=== PATIENT | female | born 1945 | race Caucasian/White ===

== ENCOUNTER → 2017-10-23 | Outpatient (CLI) | payer MEDICARE, BC | END | disposition home or self-care (01) | LOC: KCIC US 15:23 | DX: M79.89 Other specified soft tissue disorders (principal); M79.604 Pain in right leg | CPT/HCPCS: 93971 ==

== ENCOUNTER 2018-02-03 09:02 | Inpatient (IN) | payer MEDICARE, BC ==
[2018-02-03 09:52] LABS: ADD MAN DIFF? NO
[2018-02-03 10:05] LABS: ANION GAP 9 (6-14); BLOOD UREA NITROGEN 24 mg/dL (7-20); BUN/CREATININE RATIO 24 (6-20); CALCIUM 8.4 mg/dL (8.5-10.1); CARBON DIOXIDE 27 mmol/L (21-32); CHLORIDE 104 mmol/L (98-107); GFR 54.2; GLUCOSE 153 mg/dL (70-99); POTASSIUM 4.2 mmol/L (3.5-5.1); SODIUM 140 mmol/L (136-145)
[2018-02-03 10:06] LABS: BASO # 0.1 x10^3/uL (0.0-0.2); BASO % 1 % (0-3); EOS # 0.2 x10^3/uL (0.0-0.7); EOS % 2 % (0-3); HEMATOCRIT 33.5 % (36.0-47.0); HEMOGLOBIN 11.3 g/dL (12.0-15.5); LYMPH # 2.6 x10^3/uL (1.0-4.8); LYMPH % 32 % (24-48); MEAN CORPUSCULAR HEMOGLOBIN 28 pg (25-35); MEAN CORPUSCULAR HGB CONC 34 g/dL (31-37); MEAN CORPUSCULAR VOLUME 84 fL (79-100); MONO # 0.5 x10^3/uL (0.0-1.1); MONO % 6 % (0-9); NEUT # 4.9 x10^3uL (1.8-7.7); NEUT % 59 % (31-73); PLATELET COUNT 179 x10^3/uL (140-400); RED BLOOD COUNT 3.97 x10^6/uL (3.50-5.40); RED CELL DISTRIBUTION WIDTH 16.3 % (11.5-14.5); WHITE BLOOD COUNT 8.3 x10^3/uL (4.0-11.0)
[2018-02-03 10:12] LABS: ALBUMIN 3.3 g/dL (3.4-5.0); ALBUMIN/GLOBULIN RATIO 1.1 (1.0-1.7); ALK PHOS 67 U/L (46-116); ALT (SGPT) 22 U/L (14-59); AST (SGOT) 20 U/L (15-37); TOTAL BILIRUBIN 0.3 mg/dL (0.2-1.0); TOTAL PROTEIN 6.4 g/dL (6.4-8.2)
[2018-02-03 10:18] LABS: TROPONINI < 0.017 ng/mL (0.000-0.055)
[2018-02-03 10:27] LABS: NT-PRO BNP 474 pg/mL (0-124)
[2018-02-03 10:27] LABS: CKMB MASS 0.7 ng/mL (0.0-3.6); CREATINE KINASE 24 U/L (26-192)
[2018-02-03 10:39] LABS: PARTIAL THROMBOPLASTIN TIME 30 SEC (24-38); PROTHROMBIN TIME PATIENT 12.9 SEC (11.7-14.0)
[2018-02-03 10:51] LABS: BILIRUBIN,URINE NEGATIVE (NEG); CLARITY,URINE CLEAR; COLOR,URINE YELLOW; GLUCOSE,URINE NEGATIVE (NEG); NITRITE,URINE NEGATIVE (NEG); PROTEIN,URINE NEGATIVE (NEG-TRACE); UROBILINOGEN,URINE 0.2 mg/dL (0.2 mg/dL)
[2018-02-03] MEDS: IV NORMAL SALINE 1000ML BAG 1,000 ML IV (10:56)
[2018-02-03 11:05] LABS: SQUAMOUS EPITHELIAL CELL,UR MOD /LPF
[2018-02-03 11:06] LABS: BACTERIA,URINE FEW /HPF (0-FEW); HYALINE CASTS, URINE FEW /HPF; RBC,URINE 0 /HPF (0-2)
[2018-02-03] MEDS ORDERED: ONDANSETRON PF 4 MG/2 ML VIAL. IV (11:30)
[2018-02-03] MEDS ORDERED: ACETAMINOPHEN/CODEINE 300/30MG TABLET. PO (12:00)
[2018-02-03] MEDS ORDERED: DEXTROSE 50% 25 GM / 50ML DISP.SYRIN. IV (12:00)
[2018-02-03] MEDS: INSULIN LISPRO 300 UNITS/3 ML INSULN.PEN. SQ ×3 (12:30→17:40)
[2018-02-03] MEDS ORDERED: FUROSEMIDE 40 MG TABLET. PO (13:00)
[2018-02-03] MEDS ORDERED: hydrALAZINE 20 MG/ML VIAL. IVP (13:15)
[2018-02-03] MEDS: LISINOPRIL 20 MG TABLET PO (14:23)
[2018-02-03] MEDS: POTASSIUM CHLORIDE 10 MEQ TABLET.ER. PO (14:23)
[2018-02-03] MEDS: FUROSEMIDE 40 MG/4 ML VIAL. IVP (14:24)
[2018-02-03] MEDS ORDERED: PERFLUTREN PROTEIN-A MICROSPHR 0.22 MG/ML 3 ML VIAL. IV (14:59)
[2018-02-03 15:03] LABS: TROPONINI < 0.017 ng/mL (0.000-0.055)
[2018-02-03 15:25] LABS: THYROID STIM HORMONE (TSH) 7.714 uIU/mL (0.358-3.74)
[2018-02-03] MEDS: amLODIPine BESYLATE 10 MG TABLET PO (16:13)
[2018-02-03 17:19] LABS: POC GLUCOSE 138 mg/dL (70-99)
[2018-02-03] MEDS: glyBURIDE 5 MG TABLET PO (17:33)
[2018-02-03 18:15] LABS: TROPONINI < 0.017 ng/mL (0.000-0.055)
[2018-02-03] MEDS: SIMVASTATIN 20 MG TABLET PO (20:26)
[2018-02-03] MEDS: ACETAMINOPHEN 500 MG TABLET PO (20:26)
[2018-02-03 20:35] LABS: POC GLUCOSE 115 mg/dL (70-99)
[2018-02-03] MEDS: INSULIN GLARGINE 300 UNITS/3 ML INSULN.PEN. SQ (20:41)
[2018-02-03] MEDS: hydrALAZINE 20 MG/ML VIAL. IVP (21:05)
[2018-02-04 06:21] LABS: ANION GAP 8 (6-14); BLOOD UREA NITROGEN 22 mg/dL (7-20); CALCIUM 8.9 mg/dL (8.5-10.1); CARBON DIOXIDE 27 mmol/L (21-32); CHLORIDE 107 mmol/L (98-107); CREATININE 1.2 mg/dL (0.6-1.0); GFR 43.9; GLUCOSE 185 mg/dL (70-99); SODIUM 142 mmol/L (136-145)
[2018-02-04] MEDS: LISINOPRIL 20 MG TABLET PO (08:32)
[2018-02-04] MEDS: glyBURIDE 5 MG TABLET PO ×2 (08:32→17:11)
[2018-02-04] MEDS: POTASSIUM CHLORIDE 10 MEQ TABLET.ER. PO (08:32)
[2018-02-04] MEDS: amLODIPine BESYLATE 10 MG TABLET PO (08:33)
[2018-02-04] MEDS: INSULIN GLARGINE 300 UNITS/3 ML INSULN.PEN. SQ (08:33)
[2018-02-04] MEDS: INSULIN LISPRO 300 UNITS/3 ML INSULN.PEN. SQ ×6 (08:41→17:16)
[2018-02-04] MEDS ORDERED: FUROSEMIDE 40 MG/4 ML VIAL. IVP (09:00)
[2018-02-04] MEDS: hydrALAZINE 20 MG/ML VIAL. IVP (11:02)
[2018-02-04] MEDS ORDERED: hydrALAZINE 20 MG/ML VIAL. IVP (11:15)
[2018-02-04 11:42] LABS: POC GLUCOSE 197 mg/dL (70-99)
[2018-02-04 11:42] LABS: POC GLUCOSE 206 mg/dL (70-99)
[2018-02-04] MEDS: ISOSORBIDE MONONITRATE ER 30 MG TAB.ER.24H PO (11:45)
[2018-02-04 17:13] LABS: POC GLUCOSE 162 mg/dL (70-99)
[2018-02-05 03:18] LABS: MRSA BY PCR Negative (Negative)
[2018-02-05 14:44] LABS: HEMOGLOBIN A1C 7.1 % (4.8-5.6)
== END 2018-02-04 19:10 | disposition home or self-care (01) | DRG 312 ==
LOC: ER 09:02 → 1 WEST ICU 11:38 → 2 NORTH 19:05
DX: I95.2 Hypotension due to drugs (principal); E03.9 Hypothyroidism, unspecified; E11.9 Type 2 diabetes mellitus without complications; E66.9 Obesity, unspecified; E78.5 Hyperlipidemia, unspecified; I10 Essential (primary) hypertension; I44.0 Atrioventricular block, first degree; M19.90 Unspecified osteoarthritis, unspecified site; I89.0 Lymphedema, not elsewhere classified; Z68.34 Body mass index [BMI] 34.0-34.9, adult; Z79.4 Long term (current) use of insulin; Z82.49 Family history of ischemic heart disease and other diseases of the circulatory system; Z86.718 Personal history of other venous thrombosis and embolism; Z90.710 Acquired absence of both cervix and uterus; Z88.2 Allergy status to sulfonamides; Z68.38 Body mass index [BMI] 38.0-38.9, adult; T46.1X5A Adverse effect of calcium-channel blockers, initial encounter; T46.5X5A Adverse effect of other antihypertensive drugs, initial encounter
CPT/HCPCS: 36415; 70450; 71046; 76770; 80048; 80053; 81001; 82553; 82962; 83036; 83735; 83880; 84443; 84484; 85025; 85610; 85730; 87641; 93005; 93970; 96360; 97161-GP; 97166-GO; 97530-GO; 97535-GO; 99285; 99285-25; J0360; J1815; J1940; J7030

== ENCOUNTER → 2018-03-10 | Outpatient (CLI) | payer MEDICARE, BC ==
[2018-02-04 15:00] VITALS: BP 154/72
[~2018-03-10] MED LIST: BENA40TA3 PO; FURO40TA4 PO; GLYB5TAB3 PO; INSU100V13 SQ; METF10003 PO; POTA10TA31 PO; SIMV20TA3 PO
[2018-03-10 11:11] LABS: CALCIUM 9.7 mg/dL (8.5-10.1); CREATININE 1.1 mg/dL (0.6-1.0); GFR 48.6
== END | disposition home or self-care (01) ==
LOC: LAB 10:20
PROVIDERS: ATTEND Internal Medicine Cardiovascular Disease
DX: I10 Essential (primary) hypertension (principal); E11.9 Type 2 diabetes mellitus without complications; E78.5 Hyperlipidemia, unspecified; E03.9 Hypothyroidism, unspecified; Z79.4 Long term (current) use of insulin; Z86.718 Personal history of other venous thrombosis and embolism; Z90.710 Acquired absence of both cervix and uterus; Z68.34 Body mass index [BMI] 34.0-34.9, adult; Z82.49 Family history of ischemic heart disease and other diseases of the circulatory system
CPT/HCPCS: 36415; 80048

== ENCOUNTER 2018-10-21 10:05 | Inpatient (IN) | payer MEDICARE, BC ==
[~2018-10-21] VITALS: Ht 170.2 cm; Wt 114.3 kg
[~2018-10-21 10:05] MED LIST changes: -METF10003 PO; +METF10007 PO
[2018-10-21 11:00] VITALS: BP 143/62
[2018-10-21] MEDS ORDERED: ASPI81TA50 PO (12:32)
[2018-10-21] MEDS ORDERED: INSU100I11 SQ (12:32)
[2018-10-21] MEDS ORDERED: OMEG1CAP6 PO (12:32)
[2018-10-21] MEDS ORDERED: AMLO10TA4 PO (12:32)
[2018-10-21] MEDS ORDERED: ATOR10TA60 PO (12:32)
[2018-10-21] MEDS ORDERED: OMEG1CAP2 PO (12:32)
[2018-10-21] MEDS ORDERED: HYDR-2869 PO (12:32)
[2018-10-21] MEDS ORDERED: LEVO100T PO (12:32)
[2018-10-21] MEDS ORDERED: APIX5TAB PO (12:32)
[2018-10-21] MEDS ORDERED: FUROSEMIDE 40 MG/4 ML VIAL. IVP ONE ×2 (13:30→20:00)
--- NOTE | 2018-10-21 13:42 | PDOC ---
JOSÉ LUIS COLUNGA STEEL CRANE OPERATOR 10/21/18 1341: CARDIO Progress Notes Date and Time Date of Service 10/21/18 Time of Evaluation 1305 Subjective Subjective: No Chest Pain, No shortness of breath, Other (c/o LE edema, tightness) Vitals Vitals Vital Signs Date Time Temp Pulse Resp B/P (MAP) Pulse Ox O2 Delivery O2 Flow Rate FiO2 10/21/18 11:00 97.7 76 19 143/62 (89) 97 Room Air 97.7 Weight Weight [ ] Laboratory Labs Laboratory Tests Test 10/21/18 11:57 Glucose (Fingerstick) 83 mg/dL (70-99) Physical Exam HEENT: Neck Supple W Full Motion Chest: Symmetric LUNGS: Clear to Auscultation, Other (diminished bases) Heart: S1S2, RRR Abdomen: Soft N/T Extremities: Other (3+ pitting bilateral LE edema) Neurology: alert, oriented, follow commands Assessment Assessment HPI: This is a 73 yo female,with a history of chronic lower extremity edema, hypertension, diabetes, and DVT on chronic anticoagulation, who presented to our office today for routine follow up with complaints of significant lower extremity edema. Patient report LE swelling has been progressively worsening over the last couple of weeks. Reports compliance with diuretic therapy. No recent complaints of chest pain, palpitations, dizziness, diaphoresis, or recent illness/fevers. Does reports some mild shortness of breath, especially upon exertion. Also reporting slight orthopnea over the last few days. Has previously decline further workup of persistent LE edema and shortness of breath. Assessment 1. LE edema, probable venous insufficiency 2. Hypertension 3. Hyperlipidemia 4. Diabetes, II 5. H/o DVT on chronic anticoagulation 6. Hypothyroidism Recommendations CXR CBC, CMP, NT Pro BNP Echo to assess LV systolic function Diuresis with monitoring of labs LE elevation, compression stockings as tolerated Further recommendations pending above. RUSTY WALLS MD 10/21/18 1925: CARDIO Progress Notes Plan Plan Pt. seen and examined. Agree with above SOAP TENDER note with following comments: 73 y.o woman with severe bilateral lower ext edema. She has clear lungs, normal EF and low BNP, this would point away from a central process. She does have a history of DVT Will check bilateral venous dopplers and reflux studies. Diuresis as renal function allows. May need a caval venogram to rule out may thurner. Will consider possible RHC and IVC venogram tomorrow. Thanks. JOSÉ LUIS COLUNGA APRN Oct 21, 2018 13:41 RUSTY WALLS MD Oct 21, 2018 19:25
[2018-10-21] MEDS: LISINOPRIL 20 MG TABLET PO SCH (14:00)
[2018-10-21] MEDS: amLODIPine BESYLATE 10 MG TABLET PO SCH (14:00)
[2018-10-21] MEDS: OMEGA-3 FATTY ACIDS/FISH OIL 1,000 MG CAPSULE. PO SCH (14:00)
[2018-10-21] MEDS: ASPIRIN ENTERIC COATED 81 MG TABLET.DR. PO SCH (14:00)
[2018-10-21] MEDS: LEVOTHYROXINE 100 MCG TABLET PO SCH (14:00)
--- NOTE | 2018-10-21 14:02 | CARD ---
MR#: [id number] Date of Study: 10/21/2018 Ordering Physician: RUSTY WALLS, Referring Physician: ALONSO YOUNG Tech: Tiffanie Nichols RAMU APPROVED REPORT EXAM: Two-dimensional and M-mode echocardiogram with Doppler and color Doppler. Other Information Quality : Good INDICATION Congestive Heart Failure 2D DIMENSIONS Left Atrium(2D)4.7 (1.6-4.0cm)IVSd1.5 (0.7-1.1cm) Aortic Root(2D)2.8 (2.0-3.7cm)LVDd4.4 (3.9-5.9cm) LVOT Diameter2.1 (1.8-2.4cm)PWd0.9 (0.7-1.1cm) LVDs2.3 (2.5-4.0cm)FS (%) 30.0 % SV69.0 mlLVEF(%)60.0 (>50%) Aortic Valve AoV Peak Stuart.131.5cm/sAoV VTI29.0cm AO Peak GR.6.9mmHgLVOT Peak Stuart.122.4cm/s AO Mean GR.4mmHgAVA (VMAX)3.27cm2 JESSI (VTI)3.94wd6ZD P 1/2 [id number] Mitral Valve MV E Tqvmpkjx73.4cm/sMV DECEL [id number] MV A Apppqose01.9cm/sE/A Ratio1.2 Pulmonary Vein S1 Msunddoo30.4cm/sD2 Kpytesse19.0cm/s LEFT VENTRICLE The left ventricle is normal size. There is mild to moderate asymmetric septal left ventricular hyper trophy. The left ventricular systolic function is normal. The Ejection Fraction is 55-60%. There is n ormal LV segmental wall motion. Transmitral Doppler flow pattern is Grade I-abnormal relaxation patte rn. RIGHT VENTRICLE The right ventricle is normal size. The right ventricular systolic function is normal. ATRIA The left atrium is mildly dilated. The right atrium size is normal. The interatrial septum is intact with no evidence for an atrial septal defect or patent foramen ovale as noted on 2-D or Doppler imagi ng. AORTIC VALVE The aortic valve is calcified but opens well. Doppler and Color Flow revealed trace to mild aortic re gurgitation. There is no significant aortic valvular stenosis. MITRAL VALVE The mitral valve is calcified but opens well. There is no evidence of mitral valve prolapse. There is no mitral valve stenosis. Doppler and Color-flow revealed mild mitral regurgitation. TRICUSPID VALVE The tricuspid valve is normal in structure and function. Doppler and Color Flow revealed no tricuspid valve regurgitation noted. There is no tricuspid valve stenosis. PULMONIC VALVE The pulmonic valve is not well visualized. Doppler and Color Flow revealed trace pulmonic valvular re gurgitation. There is no pulmonic valvular stenosis. GREAT VESSELS The aortic root is normal in size. The ascending aorta is normal in size. The IVC is normal in size a nd collapses >50% with inspiration. PERICARDIAL EFFUSION There is no evidence of significant pericardial effusion. Critical Notification Critical Value: No <Conclusion> The left ventricular systolic function is normal. The Ejection Fraction is 55-60%. There is normal LV segmental wall motion. Transmitral Doppler flow pattern is Grade I-abnormal relaxation pattern. Trace to mild aortic regurgitation. Mild mitral regurgitation. There is no evidence of significant pericardial effusion. Signed by : Rex Mcarthur, Electronically Approved : 10/21/2018 14:02:04
[2018-10-21] MEDS: APIXABAN 5 MG TABLET. PO SCH ×2 (14:07→20:05)
[2018-10-21 14:42] VITALS: BP 148/60
--- NOTE | 2018-10-21 14:43 | RAD ---
AP and Lateral Views of the Chest 10/21/2018 1:36 PM Indication: Shortness of breath Comparison: Chest radiograph January 04, 2018 Findings: There is no focal consolidation or infiltrate identified. The cardiomediastinal silhouette is within normal limits. There is no evidence of pneumothorax or pleural effusion. No acute osseous abnormalities are identified. Impression: No evidence of acute cardiopulmonary process. Electronically signed by: Isiah Mazariegos MD (10/21/2018 2:40 PM) [id number]
[2018-10-21] MEDS ORDERED: 0.9 % SODIUM CHLORIDE 10 ML DISP.SYRIN. IV PRN (16:45)
--- NOTE | 2018-10-21 16:50 | PDOC1 ---
History and Physical Date of Admission Date of Admission 10/21/2018 Identification/Chief Complaint Chief Complaint my legs are swollen Source Source: Chart review, Patient History of Present Illness History of Present Illness is a 73-year-old female with multiple comorbidities including hypertension diabetes dyslipidemia who was in her usual state of health until she was evaluated today at her finishing inspector office. She was noted to have bilateral edema over her extremities. Patient refers having great deal of discomfort as a consequence of the increase in her edema over the last week more or less. She has been dealing with her symptoms for at least 2 years he refers. Patient denies trauma denies fever she has had chills she denies breaks in her skin. She had been wearing compression stockings but due to the increase in swelling she has not been able to wear them lately. The patient denied chest pain palpitations she has had episodes where she wakes up in the middle the night with paroxysmal to dyspnea she denies dietary transgressions no increase in salt intake no changes to her medications have been done recently. She is being admitted the request of her primary finishing inspector for further investigation and ruling out congestive heart failure as an etiology for her lower semi-edema and proximal internal dyspnea. The patient at the time my evaluation is laying comfortably in Trendelenburg with her legs and elevation. No chest pain no shortness of breath is reported at this time no headache blurred vision, trouble swallowing no palpitations no abdominal pain no nausea no vomiting no diarrhea were voiced by the patient. No urinary symptoms either Past Medical History Cardiovascular: HTN, Hyperlipidemia CENTRAL NERVOUS SYSTEM: Other GI: No pertinent hx Heme/Onc: Other Hepatobiliary: No pertinent hx Psych: No pertinent hx Rheumatologic: No pertinent hx Infectious disease: No pertinent hx Renal/: No pertinent hx Endocrine: Diabetes, Hypothyroidism Past Surgical History Past Surgical History: Cholecystectomy, Hysterectomy Family History Family History: Heart Disease Social History ALCOHOL: none Drugs: None Current Medications Current Medications Current Medications Medications (Trade) Dose Ordered Sig/Matt Start Time Stop Time Status Last Admin Dose Admin Acetaminophen (Tylenol) 650 mg PRN Q6HRS PRN 10/21/18 16:30 Amlodipine Besylate (Norvasc) 10 mg DAILY 10/21/18 14:00 Apixaban (Eliquis) 5 mg BID 10/21/18 14:00 10/21/18 14:07 5 MG Aspirin (Ecotrin) 81 mg DAILY 10/21/18 14:00 Atorvastatin Calcium (Lipitor) 10 mg QHS 10/21/18 21:00 Fish Oil (Fish Oil) 1,000 mg DAILY 10/21/18 14:00 Furosemide (Lasix) 40 mg BID92 10/22/18 09:00 Glyburide (Diabeta) 5 mg BIDWMEALS 10/21/18 17:00 Hydralazine HCl (Apresoline) 50 mg BID 10/21/18 14:00 Insulin Glargine (Lantus) 30 units BID 10/21/18 21:00 Insulin Human Lispro (HumaLOG) 15 units TIDBFRMEAL 10/21/18 16:30 Levothyroxine Sodium (Synthroid) 100 mcg DAILYAC 10/21/18 14:00 Lisinopril (Prinivil) 40 mg DAILY 10/21/18 14:00 Metformin HCl (Glucophage) 1,000 mg BIDWMEALS 10/21/18 17:00 Non-Formulary Medication (Coleman-3 Acid Ethyl Esters (Lovaza)) 2 cap BID 10/21/18 21:00 UNV Allergies Allergies Allergies Coded Allergies Type Severity Reaction Last Updated Verified Sulfa (Sulfonamide Antibiotics) Allergy Intermediate HIVES 02/04/18 No ROS Review of System CONSTITUTIONAL: No fever or chills EYES: No recent changes SKIN: No rash or itching CARDIOVASCULAR: No chest pain, syncope, palpitations, or edema RESPIRATORY: No SOB or cough GASTROINTESTINAL: No nausea, vomiting or abdominal pain NEUROLOGICAL: No headaches or weakness ENDOCRINE: No cold or heat intolerance GENITOURINARY: No urgency or frequency of urination MUSCULOSKELETAL: No back pain or joint pain LYMPHATICS: No enlarged lymph nodes PSYCHIATRIC: No anxiety or depression Physical Exam Physical Exam Gen.: obese in no apparent distress Head: Normal shape atraumatic Eyes: Pupils equal reactive to light and accommodation, normal conjunctivae and lids Ears: Normal shape Nose: Normal shape no trauma Mouth: No exudates of the back of throat no thrush no lesions Neck: Supple no JVD no carotid bruit or lymphadenopathy no thyromegaly Chest: Lungs clear to auscultation with good inspiratory effort no crackles rales or rhonchi Cardiovascular: S1-S2 regular rhythm no murmurs gallops or rubs Abdomen: Bowel sounds present soft nontender no hepatosplenomegaly appreciated sign Extremities: No clubbing no cyanosis no edema peripheral pulses palpated bilaterally Neurological: Alert awake oriented in person time place and situation, cranial nerves II through XII intact, no motor or sensory deficits appreciated Psych: Appropriate mood, cooperative Vitals Vitals Vital Signs Date Time Temp Pulse Resp B/P (MAP) Pulse Ox O2 Delivery O2 Flow Rate FiO2 10/21/18 14:42 97.8 78 18 148/60 (89) 97 Room Air 97.8 Labs Labs Laboratory Tests Test 10/21/18 11:57 10/21/18 13:51 10/21/18 14:03 Glucose (Fingerstick) 83 mg/dL (70-99) 55 mg/dL (70-99) 90 mg/dL (70-99) Laboratory Tests Test 10/21/18 11:57 10/21/18 13:51 10/21/18 14:03 Glucose (Fingerstick) 83 mg/dL (70-99) 55 mg/dL (70-99) 90 mg/dL (70-99) VTE Prophylaxis Ordered VTE Prophylaxis Devices: Yes VTE Pharmacological Prophylaxi: Yes Assessment/Plan Assessment/Plan Bilateral lower extremity edema History of essential hypertension Diabetes mellitus type 2 insulin requiring Dyslipidemia Obesity with a BMI of 39 Suspect obesity hypoventilation syndrome she doesn't use a CPAP machine Plan Resume home medications Evaluation as per cardiology for congestive heart failure Compression stockings We'll start Bumex Further recommendations will be based on the clinical course May benefit from sleep study in the outpatient setting DVT prophylaxis with heparin ROHIT LECHUGA MD Oct 21, 2018 16:50
[2018-10-21] MEDS ORDERED: MORPHINE SULFATE 2 MG/ML VIAL. IV PRN (17:00)
[2018-10-21 17:06] LABS: BASO % 1 % (0-3); EOS # 0.2 x10^3/uL (0.0-0.7); EOS % 2 % (0-3); HEMATOCRIT 28.6 % (36.0-47.0); HEMOGLOBIN 9.1 g/dL (12.0-15.5); LYMPH # 2.3 x10^3/uL (1.0-4.8); LYMPH % 30 % (24-48); MEAN CORPUSCULAR HEMOGLOBIN 27 pg (25-35); MEAN CORPUSCULAR HGB CONC 32 g/dL (31-37); MEAN CORPUSCULAR VOLUME 85 fL (79-100); MONO # 0.5 x10^3/uL (0.0-1.1); MONO % 7 % (0-9); NEUT # 4.7 x10^3uL (1.8-7.7); NEUT % 61 % (31-73); PLATELET COUNT 185 x10^3/uL (140-400); RED BLOOD COUNT 3.37 x10^6/uL (3.50-5.40); RED CELL DISTRIBUTION WIDTH 16.3 % (11.5-14.5); WHITE BLOOD COUNT 7.7 x10^3/uL (4.0-11.0)
[2018-10-21 17:42] LABS: ALBUMIN 3.3 g/dL (3.4-5.0); ALBUMIN/GLOBULIN RATIO 0.9 (1.0-1.7); CALCIUM 8.9 mg/dL (8.5-10.1); CREATININE 1.2 mg/dL (0.6-1.0); GFR 43.8; MAGNESIUM 2.4 mg/dL (1.8-2.4); TOTAL BILIRUBIN 0.4 mg/dL (0.2-1.0); TOTAL PROTEIN 6.8 g/dL (6.4-8.2)
[2018-10-21] MEDS: ACETAMINOPHEN 325 MG TABLET. PO PRN (18:14)
[2018-10-21] MEDS: glyBURIDE 5 MG TABLET PO SCH (18:15)
[2018-10-21] MEDS: metFORMIN 500 MG TABLET PO SCH (18:15)
[2018-10-21] MEDS: INSULIN LISPRO 300 UNITS/3 ML INSULN.PEN. SQ SCH (18:22)
[2018-10-21 19:13] VITALS: BP 144/51
[2018-10-21] MEDS: ATORVASTATIN CALCIUM 10 MG TABLET. PO SCH (20:39)
[2018-10-21] MEDS: INSULIN GLARGINE 300 UNITS/3 ML INSULN.PEN. SQ SCH (20:41)
[2018-10-21] MEDS ORDERED: HEPARIN for SUB-Q USE 5,000 UNIT/ML VIAL. SQ SCH (21:00)
[2018-10-21] MEDS ORDERED: OMEGA ACID ETHYL ESTERS PO SCH (21:00)
[2018-10-21 23:05] VITALS: BP 115/52
[2018-10-22 02:36] VITALS: BP 146/49
[2018-10-22 07:00] VITALS: BP 146/54
[2018-10-22] MEDS: metFORMIN 500 MG TABLET PO SCH (07:14)
[2018-10-22] MEDS: INSULIN LISPRO 300 UNITS/3 ML INSULN.PEN. SQ SCH ×3 (07:30→18:01)
[2018-10-22] MEDS: glyBURIDE 5 MG TABLET PO SCH ×2 (08:00→17:19)
[2018-10-22] MEDS ORDERED: ANTI-COAG MONITOR BY PHARMACY. MC PRN (08:15)
[2018-10-22] MEDS: amLODIPine BESYLATE 10 MG TABLET PO SCH (08:37)
[2018-10-22] MEDS: LISINOPRIL 20 MG TABLET PO SCH (08:37)
[2018-10-22] MEDS: LEVOTHYROXINE 100 MCG TABLET PO SCH (08:38)
[2018-10-22] MEDS: OMEGA-3 FATTY ACIDS/FISH OIL 1,000 MG CAPSULE. PO SCH (08:38)
[2018-10-22] MEDS: INSULIN GLARGINE 300 UNITS/3 ML INSULN.PEN. SQ SCH ×2 (09:00→21:08)
[2018-10-22] MEDS ORDERED: FUROSEMIDE 40 MG/4 ML VIAL. IVP SCH (09:00)
[2018-10-22] MEDS: ASPIRIN ENTERIC COATED 81 MG TABLET.DR. PO SCH (09:00)
[2018-10-22] MEDS: BUMETANIDE 1 MG/4 ML VIAL. IV SCH ×2 (09:33→14:31)
[2018-10-22] MEDS ORDERED: IOHEXOL 300 MG/ML 100ML VIAL. IV ONE (09:45)
[2018-10-22 11:00] VITALS: BP 145/61
--- NOTE | 2018-10-22 11:48 | PDOC ---
JOSÉ LUIS COLUNGA BROADBAND TECHNICIAN 10/22/18 1147: CARDIO Progress Notes Date and Time Date of Service 10/22/18 Time of Evaluation 1040 Subjective Subjective: No Chest Pain, No shortness of breath, Other (LE edmea better) Vitals Vitals Vital Signs Date Time Temp Pulse Resp B/P (MAP) Pulse Ox O2 Delivery O2 Flow Rate FiO2 10/22/18 08:37 85 10/22/18 07:00 97.9 16 146/54 (84) 95 Room Air 97.9 Weight Weight [ ] Input and Output Intake and Output Intake and Output 10/22/18 06:59 Intake Total 1040 ml Output Total 3400 ml Balance -2360 ml Intake Oral 1040 ml Output Urine Total 3400 ml Laboratory Labs Laboratory Tests Test 10/21/18 11:57 10/21/18 13:51 10/21/18 14:03 10/21/18 16:42 Glucose (Fingerstick) 83 mg/dL (70-99) 55 mg/dL (70-99) 90 mg/dL (70-99) White Blood Count 7.7 x10^3/uL (4.0-11.0) Red Blood Count 3.37 x10^6/uL (3.50-5.40) Hemoglobin 9.1 g/dL (12.0-15.5) Hematocrit 28.6 % (36.0-47.0) Mean Corpuscular Volume 85 fL (79-100) Mean Corpuscular Hemoglobin 27 pg (25-35) Mean Corpuscular Hemoglobin Concent 32 g/dL (31-37) Red Cell Distribution Width 16.3 % (11.5-14.5) Platelet Count 185 x10^3/uL (140-400) Neutrophils (%) (Auto) 61 % (31-73) Lymphocytes (%) (Auto) 30 % (24-48) Monocytes (%) (Auto) 7 % (0-9) Eosinophils (%) (Auto) 2 % (0-3) Basophils (%) (Auto) 1 % (0-3) Neutrophils # (Auto) 4.7 x10^3uL (1.8-7.7) Lymphocytes # (Auto) 2.3 x10^3/uL (1.0-4.8) Monocytes # (Auto) 0.5 x10^3/uL (0.0-1.1) Eosinophils # (Auto) 0.2 x10^3/uL (0.0-0.7) Basophils # (Auto) 0.0 x10^3/uL (0.0-0.2) Sodium Level 142 mmol/L (136-145) Potassium Level 4.0 mmol/L (3.5-5.1) Chloride Level 104 mmol/L (98-107) Carbon Dioxide Level 29 mmol/L (21-32) Anion Gap 9 (6-14) Blood Urea Nitrogen 26 mg/dL (7-20) Creatinine 1.2 mg/dL (0.6-1.0) Estimated GFR (Cockcroft-Gault) 43.8 BUN/Creatinine Ratio 22 (6-20) Glucose Level 230 mg/dL (70-99) Hemoglobin A1c 7.0 % (4.8-5.6) Calcium Level 8.9 mg/dL (8.5-10.1) Phosphorus Level 4.0 mg/dL (2.6-4.7) Magnesium Level 2.4 mg/dL (1.8-2.4) Total Bilirubin 0.4 mg/dL (0.2-1.0) Aspartate Amino Transf (AST/SGOT) 16 U/L (15-37) Alanine Aminotransferase (ALT/SGPT) 18 U/L (14-59) Alkaline Phosphatase 69 U/L (46-116) MB-Avb-F-Type Natriuretic Peptide 223 pg/mL (0-449) Total Protein 6.8 g/dL (6.4-8.2) Albumin 3.3 g/dL (3.4-5.0) Albumin/Globulin Ratio 0.9 (1.0-1.7) Thyroid Stimulating Hormone (TSH) 3.410 uIU/mL (0.358-3.74) Test 10/21/18 16:47 10/21/18 20:38 10/22/18 08:09 Glucose (Fingerstick) 211 mg/dL (70-99) 193 mg/dL (70-99) 136 mg/dL (70-99) Physical Exam HEENT: Neck Supple W Full Motion Chest: Symmetric LUNGS: Clear to Auscultation Heart: S1S2, RRR, murmurs (2/6 systolic murmur ) Abdomen: Soft N/T Extremities: Other (2-3+ pitting bilateral LE edema, bilateral LE rash/erythema ) Neurology: alert, oriented, follow commands Assessment Assessment 1. LE edema; Echo showed preserved LV systolic function; EF 55-60% 2. Hypertension 3. Hyperlipidemia 4. Diabetes, II 5. H/o DVT on chronic anticoagulation Recommendations Diuresis with monitoring of renal function BMP Bilateral LE venous and reflux studies NPO Venogram today to r/o iliac vein obstruction RUSTY WALLS MD 10/22/18 1439: CARDIO Progress Notes Plan Plan Pt. seen and examined. Agree with above [employer] note. No acute events. Awaiting report of abd/pelvic vein evaluation to r/o may thurner or other central obstruction. If negative, then this may simply be lymphedema, needs chronic therapy. Supportive care. Change to oral diuretics tomorrow. JOSÉ LUIS COLUNGA APRN Oct 22, 2018 11:47 RUSTY WALLS MD Oct 22, 2018 14:39
[2018-10-22 14:19] LABS: CREATININE 1.1 mg/dL (0.6-1.0); GFR 48.4; MAGNESIUM 2.2 mg/dL (1.8-2.4); POTASSIUM 3.8 mmol/L (3.5-5.1)
[2018-10-22 15:00] VITALS: BP 143/63
--- NOTE | 2018-10-22 16:32 | RAD ---
CT venogram, abdomen and pelvis 10/22/2018 INDICATION: Bilateral lower extremity edema. COMPARISON STUDY: Bilateral lower extremity venous defects ultrasound February 03, 2018. TECHNIQUE: Multidetector CT imaging of the abdomen and pelvis was performed following the administration of IV contrast. 182nd delay was used prior to imaging. FINDINGS: Visualized lung bases demonstrate no acute abnormality. Prior cholecystectomy noted. The liver is unremarkable. Granulomatous disease involving the spleen noted. The adrenal glands are unremarkable. The pancreas is unremarkable. Probable small cyst is seen in the superior pole the left kidney. Consider ultrasound evaluation as clinically indicated. Excretion of contrast from the kidneys is seen. There is no bowel obstruction. Bladder is grossly unremarkable. The common femoral, external iliac, and common iliac veins appear to be grossly patent. No filling defects consistent with thrombus are identified. No gross evidence of vascular webs are seen. No significant venous collaterals are identified. There is compression of the left common iliac vein by the traversing right common iliac artery. Findings could be consistent with May Thurner syndrome in the appropriate clinical setting. No evidence of acute osseous of abnormality is identified. IMPRESSION: 1.Compression of the left common iliac vein via the right common iliac artery. In the appropriate clinical context, findings could be reflective of May Thurner syndrome. Sonography and intravascular ultrasound could be considered as clinically indicated. 2. No evidence of acute thrombosis or significant venous collateralization CT DOSING PQRS STATEMENT: One or more of the following individualized dose reduction techniques were utilized for this examination: 1. Automated exposure control 2. Adjustment of the mA and/or kV according to patient size 3. Use of iterative reconstruction technique Electronically signed by: Isiah Mazariegos MD (10/22/2018 4:29 PM) [id number]
--- NOTE | 2018-10-22 19:46 | PDOC ---
PROGRESS NOTES Chief Complaint Chief Complaint Bilateral lower extremity edema most likely vascular etiology History of essential hypertension Diabetes mellitus type 2 insulin requiring Dyslipidemia Obesity with a BMI of 39 Suspect obesity hypoventilation syndrome she doesn't use a CPAP machine Plan work up as per it systems analyst consultant with venogram today continue home medications Evaluation as per cardiology for congestive heart failure Compression stockings continue Bumex Further recommendations will be based on the clinical course May benefit from sleep study in the outpatient setting DVT prophylaxis with heparin History of Present Illness History of Present Illness no acute events reported overnight, feeling better compared to admission . plan of care discussed in detail reassruance provided. Vitals Vitals Vital Signs Date Time Temp Pulse Resp B/P (MAP) Pulse Ox O2 Delivery O2 Flow Rate FiO2 10/22/18 15:00 97.6 86 143/63 (89) 98 Room Air 97.6 10/22/18 11:00 18 Labs LABS Laboratory Tests Test 10/21/18 20:38 10/22/18 08:09 10/22/18 11:31 10/22/18 13:55 Glucose (Fingerstick) 193 mg/dL (70-99) 136 mg/dL (70-99) 124 mg/dL (70-99) Sodium Level 142 mmol/L (136-145) Potassium Level 3.8 mmol/L (3.5-5.1) Chloride Level 104 mmol/L (98-107) Carbon Dioxide Level 30 mmol/L (21-32) Anion Gap 8 (6-14) Blood Urea Nitrogen 25 mg/dL (7-20) Creatinine 1.1 mg/dL (0.6-1.0) Estimated GFR (Cockcroft-Gault) 48.4 Glucose Level 106 mg/dL (70-99) Calcium Level 9.0 mg/dL (8.5-10.1) Magnesium Level 2.2 mg/dL (1.8-2.4) Test 10/22/18 17:41 Glucose (Fingerstick) 187 mg/dL (70-99) Review of Systems Review of Systems positive as per hpi otehrwise 10 point review of system is negative. Comment Review of Relevant I have reviewed the following items frank (where applicable) has been applied. Labs Laboratory Tests Test 10/21/18 11:57 10/21/18 13:51 10/21/18 14:03 10/21/18 16:42 Glucose (Fingerstick) 83 mg/dL (70-99) 55 mg/dL (70-99) 90 mg/dL (70-99) White Blood Count 7.7 x10^3/uL (4.0-11.0) Red Blood Count 3.37 x10^6/uL (3.50-5.40) Hemoglobin 9.1 g/dL (12.0-15.5) Hematocrit 28.6 % (36.0-47.0) Mean Corpuscular Volume 85 fL (79-100) Mean Corpuscular Hemoglobin 27 pg (25-35) Mean Corpuscular Hemoglobin Concent 32 g/dL (31-37) Red Cell Distribution Width 16.3 % (11.5-14.5) Platelet Count 185 x10^3/uL (140-400) Neutrophils (%) (Auto) 61 % (31-73) Lymphocytes (%) (Auto) 30 % (24-48) Monocytes (%) (Auto) 7 % (0-9) Eosinophils (%) (Auto) 2 % (0-3) Basophils (%) (Auto) 1 % (0-3) Neutrophils # (Auto) 4.7 x10^3uL (1.8-7.7) Lymphocytes # (Auto) 2.3 x10^3/uL (1.0-4.8) Monocytes # (Auto) 0.5 x10^3/uL (0.0-1.1) Eosinophils # (Auto) 0.2 x10^3/uL (0.0-0.7) Basophils # (Auto) 0.0 x10^3/uL (0.0-0.2) Sodium Level 142 mmol/L (136-145) Potassium Level 4.0 mmol/L (3.5-5.1) Chloride Level 104 mmol/L (98-107) Carbon Dioxide Level 29 mmol/L (21-32) Anion Gap 9 (6-14) Blood Urea Nitrogen 26 mg/dL (7-20) Creatinine 1.2 mg/dL (0.6-1.0) Estimated GFR (Cockcroft-Gault) 43.8 BUN/Creatinine Ratio 22 (6-20) Glucose Level 230 mg/dL (70-99) Hemoglobin A1c 7.0 % (4.8-5.6) Calcium Level 8.9 mg/dL (8.5-10.1) Phosphorus Level 4.0 mg/dL (2.6-4.7) Magnesium Level 2.4 mg/dL (1.8-2.4) Total Bilirubin 0.4 mg/dL (0.2-1.0) Aspartate Amino Transf (AST/SGOT) 16 U/L (15-37) Alanine Aminotransferase (ALT/SGPT) 18 U/L (14-59) Alkaline Phosphatase 69 U/L (46-116) MI-Asc-O-Type Natriuretic Peptide 223 pg/mL (0-449) Total Protein 6.8 g/dL (6.4-8.2) Albumin 3.3 g/dL (3.4-5.0) Albumin/Globulin Ratio 0.9 (1.0-1.7) Thyroid Stimulating Hormone (TSH) 3.410 uIU/mL (0.358-3.74) Test 10/21/18 16:47 10/21/18 20:38 10/22/18 08:09 10/22/18 11:31 Glucose (Fingerstick) 211 mg/dL (70-99) 193 mg/dL (70-99) 136 mg/dL (70-99) 124 mg/dL (70-99) Test 10/22/18 13:55 10/22/18 17:41 Sodium Level 142 mmol/L (136-145) Potassium Level 3.8 mmol/L (3.5-5.1) Chloride Level 104 mmol/L (98-107) Carbon Dioxide Level 30 mmol/L (21-32) Anion Gap 8 (6-14) Blood Urea Nitrogen 25 mg/dL (7-20) Creatinine 1.1 mg/dL (0.6-1.0) Estimated GFR (Cockcroft-Gault) 48.4 Glucose Level 106 mg/dL (70-99) Calcium Level 9.0 mg/dL (8.5-10.1) Magnesium Level 2.2 mg/dL (1.8-2.4) Glucose (Fingerstick) 187 mg/dL (70-99) Laboratory Tests Test 10/21/18 20:38 10/22/18 08:09 10/22/18 11:31 10/22/18 13:55 Glucose (Fingerstick) 193 mg/dL (70-99) 136 mg/dL (70-99) 124 mg/dL (70-99) Sodium Level 142 mmol/L (136-145) Potassium Level 3.8 mmol/L (3.5-5.1) Chloride Level 104 mmol/L (98-107) Carbon Dioxide Level 30 mmol/L (21-32) Anion Gap 8 (6-14) Blood Urea Nitrogen 25 mg/dL (7-20) Creatinine 1.1 mg/dL (0.6-1.0) Estimated GFR (Cockcroft-Gault) 48.4 Glucose Level 106 mg/dL (70-99) Calcium Level 9.0 mg/dL (8.5-10.1) Magnesium Level 2.2 mg/dL (1.8-2.4) Test 10/22/18 17:41 Glucose (Fingerstick) 187 mg/dL (70-99) Medications Current Medications Furosemide (Lasix) 40 mg 1X ONCE IVP Last administered on 10/21/18 13:58; Start 10/21/18 at 13:30; Stop 10/21/18 at 13:31; Status DC Furosemide (Lasix) 40 mg BID92 IVP ; Start 10/22/18 at 09:00; Stop 10/22/18 at 09:00; Status DC Amlodipine Besylate (Norvasc) 10 mg DAILY PO Last administered on 10/22/18at 08: 37; Start 10/21/18 at 14:00 Apixaban (Eliquis) 5 mg BID PO Last administered on 10/21/18at 14:07; Start 05/01 at 14:00 Aspirin (Ecotrin) 81 mg DAILY PO ; Start 10/21/18 at 14:00 Atorvastatin Calcium (Lipitor) 10 mg QHS PO Last administered on 10/21/18at 20: 39; Start 10/21/18 at 21:00 Glyburide (Diabeta) 5 mg BIDWMEALS PO Last administered on 10/22/18 17:19; Start 10/21/18 at 17:00 Insulin Human Lispro (HumaLOG) 15 units TIDBFRMEAL SQ Last administered on 10/22at 18:01; Start 10/21/18 at 16:30 Levothyroxine Sodium (Synthroid) 100 mcg DAILYAC PO Last administered on 08:38; Start 10/21/18 at 14:00 Fish Oil (Fish Oil) 1,000 mg DAILY PO Last administered on 10/22/18 08:38; Start 10/21/18 at 14:00 Lisinopril (Prinivil) 40 mg DAILY PO Last administered on 10/22/18 08:37; Start 10/21/18 at 14:00 Hydralazine HCl (Apresoline) 50 mg BID PO Last administered on 10/22/18 08:36 ; Start 10/21/18 at 14:00 Insulin Glargine (Lantus) 30 units BID SQ Last administered on 10/21/18 20:41 ; Start 10/21/18 at 21:00 Metformin HCl (Glucophage) 1,000 mg BIDWMEALS PO Last administered on 18:15; Start 10/21/18 at 17:00; Stop 10/22/18 at 09:41; Status DC Non-Formulary Medication (Mifflin-3 Acid Ethyl Esters (Lovaza)) 2 cap BID PO ; Start 10/21/18 at 21:00; Status UNV Acetaminophen (Tylenol) 650 mg PRN Q6HRS PRN PO MILD PAIN / TEMP Last administered on 10/21/18 18:14; Start 10/21/18 at 16:30 Bumetanide (Bumex) 1 mg BID92 IV Last administered on 10/22/18 14:31; Start at 09:00 Heparin Sodium (Porcine) (Heparin Sodium) 5,000 unit Q12HR SQ ; Start 10/21/18 at 21:00; Status UNV Sodium Chloride (Normal Saline Flush) 3 ml QSHIFT PRN IV AFTER MEDS AND BLOOD DRAWS; Start 10/21/18 at 16:45 Morphine Sulfate (Morphine Sulfate) 2 mg PRN Q2HR PRN IV PAIN; Start 10/21/18 at 17:00 Furosemide (Lasix) 40 mg 1X ONCE IVP Last administered on 10/21/18 20:38; Start 10/21/18 at 20:00; Stop 10/21/18 at 20:01; Status DC Info (Anti-Coagulation Monitoring By Pharmacy) 1 each PRN DAILY PRN MC SEE COMMENTS Last administered on 4/11/19at 08:08; Start 10/22/18 at 08:15 Iohexol (Omnipaque 300 Mg/ml) 100 ml 1X ONCE IV Last administered on at 09:45; Start 10/22/18 at 09:45; Stop 10/22/18 at 09:46; Status DC Active Scripts Active Reported Humalog (Insulin Lispro) 100 Unit/1 Ml Insuln.pen 15 Unit SQ TIDBFRMEAL Lovaza (Mifflin-3 Acid Ethyl Esters) 1 Gm Capsule 2 Cap PO BID Hydralazine Hcl 50 Mg Tablet 1 Tab PO BID Norvasc (Amlodipine Besylate) 10 Mg Tablet 10 Mg PO DAILY Fish Oil 1,000 Mg Capsule (Mifflin-3 Fatty Acids/Fish Oil) 1 Each Capsule 1 Each PO DAILY Aspir-Low (Aspirin) 81 Mg Tablet.dr 1 Tab PO DAILY Eliquis (Apixaban) 5 Mg Tablet 5 Mg PO BID Atorvastatin Calcium 10 Mg Tablet 1 Tab PO DAILY Synthroid (Levothyroxine Sodium) 100 Mcg Tablet 1 Tab PO DAILY Levemir (Insulin Detemir) 100 Unit/1 Ml Vial 30 Unit SQ BID Furosemide 40 Mg Tablet 1 Tab PO DAILY Metformin Hcl 1,000 Mg Tablet 1 Tab PO BID Benazepril Hcl 40 Mg Tablet 1 Tab PO DAILY Glyburide 5 Mg Tablet 1 Tab PO BID Vitals/I & O Vital Sign - Last 24 Hours 10/21/18 10/21/18 10/22/18 10/22/18 20:42 23:05 02:36 07:00 Temp 98.4 98.8 97.9 98.4 98.8 97.9 Pulse 84 82 89 83 Resp 16 16 16 B/P (MAP) 144/51 115/52 (73) 146/49 (81) 146/54 (84) Pulse Ox 97 96 95 O2 Delivery Room Air Room Air Room Air 10/22/18 10/22/18 10/22/18 10/22/18 08:10 08:36 08:37 08:37 Pulse 85 85 85 O2 Delivery Room Air 10/22/18 10/22/18 11:00 15:00 Temp 98.1 97.6 98.1 97.6 Pulse 81 86 Resp 18 B/P (MAP) 145/61 (89) 143/63 (89) Pulse Ox 91 98 O2 Delivery Room Air Room Air Intake and Output 10/21/18 10/21/18 10/22/18 15:00 23:00 07:00 Intake Total 120 ml 920 ml 0 ml Output Total 400 ml 1650 ml 1350 ml Balance -280 ml -730 ml -1350 ml ROHIT LECHUGA MD Oct 22, 2018 19:46
[2018-10-22 19:59] VITALS: BP 187/81
[2018-10-22] MEDS: ATORVASTATIN CALCIUM 10 MG TABLET. PO SCH (20:59)
[2018-10-22] MEDS: ACETAMINOPHEN 325 MG TABLET. PO PRN (20:59)
[2018-10-22] MEDS: APIXABAN 5 MG TABLET. PO SCH (20:59)
[2018-10-22 22:54] VITALS: BP_SYST 139; BP_SYST 165; BP_DIAS 49; BP_DIAS 69
[2018-10-23 02:02] VITALS: BP 171/62
[2018-10-23 07:00] VITALS: BP 140/50
[2018-10-23 08:25] LABS: CREATININE 1.2 mg/dL (0.6-1.0); GFR 43.8; MAGNESIUM 2.2 mg/dL (1.8-2.4); POTASSIUM 3.9 mmol/L (3.5-5.1)
[2018-10-23] MEDS: OMEGA-3 FATTY ACIDS/FISH OIL 1,000 MG CAPSULE. PO SCH (08:29)
[2018-10-23] MEDS: amLODIPine BESYLATE 10 MG TABLET PO SCH (08:29)
[2018-10-23] MEDS: LEVOTHYROXINE 100 MCG TABLET PO SCH (08:30)
[2018-10-23] MEDS: glyBURIDE 5 MG TABLET PO SCH ×2 (08:30→18:10)
[2018-10-23] MEDS: LISINOPRIL 20 MG TABLET PO SCH (08:30)
[2018-10-23] MEDS: APIXABAN 5 MG TABLET. PO SCH (08:30)
[2018-10-23] MEDS: BUMETANIDE 1 MG/4 ML VIAL. IV SCH (08:31)
--- NOTE | 2018-10-23 08:31 | PDOC ---
PROGRESS NOTES Chief Complaint Chief Complaint Bilateral lower extremity edema most likely vascular etiology History of essential hypertension Diabetes mellitus type 2 insulin requiring Dyslipidemia Obesity with a BMI of 39 Suspect obesity hypoventilation syndrome she doesn't use a CPAP machine Plan work up as per clinical services consultant with venogram today continue home medications Evaluation as per cardiology for congestive heart failure Compression stockings continue Bumex Further recommendations will be based on the clinical course May benefit from sleep study in the outpatient setting DVT prophylaxis with heparin History of Present Illness History of Present Illness 73 yo F w PMHx hypertension, diabetes, dyslipidemia who was in her usual state of health until she was evaluated at her clinical laboratory service teacher office, called for admission on 10/21. She was noted to have bilateral edema over her extremities. Patient refers having great deal of discomfort as a consequence of the increase in her edema over the last week more or less. She has been dealing with her symptoms for at least 2 years. Patient denies trauma denies fever she has had chills she denies breaks in her skin. She had been wearing compression stockings but due to the increase in swelling she has not been able to wear them lately. The patient denied chest pain palpitations she has had episodes where she wakes up in the middle the night with paroxysmal to dyspnea she denies dietary transgressions no increase in salt intake no changes to her medications have been done recently. She is being admitted the request of her primary clinical laboratory service teacher for further investigation and ruling out congestive heart failure as an etiology for her lower semi-edema and proximal internal dyspnea. The patient at the time my evaluation is laying comfortably in Trendelenburg with her legs and elevation. No chest pain no shortness of breath is reported at this time no headache blurred vision, trouble swallowing no palpitations no abdominal pain no nausea no vomiting no diarrhea were voiced by the patient. No urinary symptoms either No acute events reported overnight, feeling better compared to admission, still with LE edema, but overall improving. 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 Awaiting OT lymphedema wrapping today. Has not been able to fit into her home compression stockings recently. Vitals Vitals Vital Signs Date Time Temp Pulse Resp B/P (MAP) Pulse Ox O2 Delivery O2 Flow Rate FiO2 10/23/18 07:00 98.2 78 18 140/50 (80) 95 Room Air 98.2 Physical Exam General: Alert, Oriented X3, Cooperative Heart: Regular rate, Normal S1, Normal S2 Lungs: Clear Abdomen: Normal bowel sounds, Soft Extremities: Other (1+ Edema, wrinkling of skin now, decreased DP and PT bilaterally) Skin: Other (Stasis dermatitis bilaterally lower extremities) Labs LABS Laboratory Tests Test 10/22/18 11:31 10/22/18 13:55 10/22/18 17:41 10/22/18 20:57 Glucose (Fingerstick) 124 mg/dL (70-99) 187 mg/dL (70-99) 213 mg/dL (70-99) Sodium Level 142 mmol/L (136-145) Potassium Level 3.8 mmol/L (3.5-5.1) Chloride Level 104 mmol/L (98-107) Carbon Dioxide Level 30 mmol/L (21-32) Anion Gap 8 (6-14) Blood Urea Nitrogen 25 mg/dL (7-20) Creatinine 1.1 mg/dL (0.6-1.0) Estimated GFR (Cockcroft-Gault) 48.4 Glucose Level 106 mg/dL (70-99) Calcium Level 9.0 mg/dL (8.5-10.1) Magnesium Level 2.2 mg/dL (1.8-2.4) Test 10/23/18 07:34 10/23/18 08:05 Glucose (Fingerstick) 121 mg/dL (70-99) Sodium Level 144 mmol/L (136-145) Potassium Level 3.9 mmol/L (3.5-5.1) Chloride Level 105 mmol/L (98-107) Carbon Dioxide Level 27 mmol/L (21-32) Anion Gap 12 (6-14) Blood Urea Nitrogen 24 mg/dL (7-20) Creatinine 1.2 mg/dL (0.6-1.0) Estimated GFR (Cockcroft-Gault) 43.8 Glucose Level 125 mg/dL (70-99) Calcium Level 9.0 mg/dL (8.5-10.1) Magnesium Level 2.2 mg/dL (1.8-2.4) Comment Review of Relevant I have reviewed the following items frank (where applicable) has been applied. Labs Laboratory Tests Test 10/21/18 11:57 10/21/18 13:51 10/21/18 14:03 10/21/18 16:42 Glucose (Fingerstick) 83 mg/dL (70-99) 55 mg/dL (70-99) 90 mg/dL (70-99) White Blood Count 7.7 x10^3/uL (4.0-11.0) Red Blood Count 3.37 x10^6/uL (3.50-5.40) Hemoglobin 9.1 g/dL (12.0-15.5) Hematocrit 28.6 % (36.0-47.0) Mean Corpuscular Volume 85 fL (79-100) Mean Corpuscular Hemoglobin 27 pg (25-35) Mean Corpuscular Hemoglobin Concent 32 g/dL (31-37) Red Cell Distribution Width 16.3 % (11.5-14.5) Platelet Count 185 x10^3/uL (140-400) Neutrophils (%) (Auto) 61 % (31-73) Lymphocytes (%) (Auto) 30 % (24-48) Monocytes (%) (Auto) 7 % (0-9) Eosinophils (%) (Auto) 2 % (0-3) Basophils (%) (Auto) 1 % (0-3) Neutrophils # (Auto) 4.7 x10^3uL (1.8-7.7) Lymphocytes # (Auto) 2.3 x10^3/uL (1.0-4.8) Monocytes # (Auto) 0.5 x10^3/uL (0.0-1.1) Eosinophils # (Auto) 0.2 x10^3/uL (0.0-0.7) Basophils # (Auto) 0.0 x10^3/uL (0.0-0.2) Sodium Level 142 mmol/L (136-145) Potassium Level 4.0 mmol/L (3.5-5.1) Chloride Level 104 mmol/L (98-107) Carbon Dioxide Level 29 mmol/L (21-32) Anion Gap 9 (6-14) Blood Urea Nitrogen 26 mg/dL (7-20) Creatinine 1.2 mg/dL (0.6-1.0) Estimated GFR (Cockcroft-Gault) 43.8 BUN/Creatinine Ratio 22 (6-20) Glucose Level 230 mg/dL (70-99) Hemoglobin A1c 7.0 % (4.8-5.6) Calcium Level 8.9 mg/dL (8.5-10.1) Phosphorus Level 4.0 mg/dL (2.6-4.7) Magnesium Level 2.4 mg/dL (1.8-2.4) Total Bilirubin 0.4 mg/dL (0.2-1.0) Aspartate Amino Transf (AST/SGOT) 16 U/L (15-37) Alanine Aminotransferase (ALT/SGPT) 18 U/L (14-59) Alkaline Phosphatase 69 U/L (46-116) CC-Unz-P-Type Natriuretic Peptide 223 pg/mL (0-449) Total Protein 6.8 g/dL (6.4-8.2) Albumin 3.3 g/dL (3.4-5.0) Albumin/Globulin Ratio 0.9 (1.0-1.7) Thyroid Stimulating Hormone (TSH) 3.410 uIU/mL (0.358-3.74) Test 10/21/18 16:47 10/21/18 20:38 10/22/18 08:09 10/22/18 11:31 Glucose (Fingerstick) 211 mg/dL (70-99) 193 mg/dL (70-99) 136 mg/dL (70-99) 124 mg/dL (70-99) Test 10/22/18 13:55 10/22/18 17:41 10/22/18 20:57 10/23/18 07:34 Sodium Level 142 mmol/L (136-145) Potassium Level 3.8 mmol/L (3.5-5.1) Chloride Level 104 mmol/L (98-107) Carbon Dioxide Level 30 mmol/L (21-32) Anion Gap 8 (6-14) Blood Urea Nitrogen 25 mg/dL (7-20) Creatinine 1.1 mg/dL (0.6-1.0) Estimated GFR (Cockcroft-Gault) 48.4 Glucose Level 106 mg/dL (70-99) Calcium Level 9.0 mg/dL (8.5-10.1) Magnesium Level 2.2 mg/dL (1.8-2.4) Glucose (Fingerstick) 187 mg/dL (70-99) 213 mg/dL (70-99) 121 mg/dL (70-99) Test 10/23/18 08:05 Sodium Level 144 mmol/L (136-145) Potassium Level 3.9 mmol/L (3.5-5.1) Chloride Level 105 mmol/L (98-107) Carbon Dioxide Level 27 mmol/L (21-32) Anion Gap 12 (6-14) Blood Urea Nitrogen 24 mg/dL (7-20) Creatinine 1.2 mg/dL (0.6-1.0) Estimated GFR (Cockcroft-Gault) 43.8 Glucose Level 125 mg/dL (70-99) Calcium Level 9.0 mg/dL (8.5-10.1) Magnesium Level 2.2 mg/dL (1.8-2.4) Laboratory Tests Test 10/22/18 11:31 10/22/18 13:55 10/22/18 17:41 10/22/18 20:57 Glucose (Fingerstick) 124 mg/dL (70-99) 187 mg/dL (70-99) 213 mg/dL (70-99) Sodium Level 142 mmol/L (136-145) Potassium Level 3.8 mmol/L (3.5-5.1) Chloride Level 104 mmol/L (98-107) Carbon Dioxide Level 30 mmol/L (21-32) Anion Gap 8 (6-14) Blood Urea Nitrogen 25 mg/dL (7-20) Creatinine 1.1 mg/dL (0.6-1.0) Estimated GFR (Cockcroft-Gault) 48.4 Glucose Level 106 mg/dL (70-99) Calcium Level 9.0 mg/dL (8.5-10.1) Magnesium Level 2.2 mg/dL (1.8-2.4) Test 10/23/18 07:34 10/23/18 08:05 Glucose (Fingerstick) 121 mg/dL (70-99) Sodium Level 144 mmol/L (136-145) Potassium Level 3.9 mmol/L (3.5-5.1) Chloride Level 105 mmol/L (98-107) Carbon Dioxide Level 27 mmol/L (21-32) Anion Gap 12 (6-14) Blood Urea Nitrogen 24 mg/dL (7-20) Creatinine 1.2 mg/dL (0.6-1.0) Estimated GFR (Cockcroft-Gault) 43.8 Glucose Level 125 mg/dL (70-99) Calcium Level 9.0 mg/dL (8.5-10.1) Magnesium Level 2.2 mg/dL (1.8-2.4) Medications Current Medications Furosemide (Lasix) 40 mg 1X ONCE IVP Last administered on 10/21/18 13:58; Start 10/21/18 at 13:30; Stop 10/21/18 at 13:31; Status DC Furosemide (Lasix) 40 mg BID92 IVP ; Start 10/22/18 at 09:00; Stop 10/22/18 at 09:00; Status DC Amlodipine Besylate (Norvasc) 10 mg DAILY PO Last administered on 10/22/18 08: 37; Start 10/21/18 at 14:00 Apixaban (Eliquis) 5 mg BID PO Last administered on 10/22/18 20:59; Start 05/01 at 14:00 Aspirin (Ecotrin) 81 mg DAILY PO ; Start 10/21/18 at 14:00 Atorvastatin Calcium (Lipitor) 10 mg QHS PO Last administered on 10/22/18 20: 59; Start 10/21/18 at 21:00 Glyburide (Diabeta) 5 mg BIDWMEALS PO Last administered on 10/22/18 17:19; Start 10/21/18 at 17:00 Insulin Human Lispro (HumaLOG) 15 units TIDBFRMEAL SQ Last administered on 10/22 18:01; Start 10/21/18 at 16:30 Levothyroxine Sodium (Synthroid) 100 mcg DAILYAC PO Last administered on 08:38; Start 10/21/18 at 14:00 Fish Oil (Fish Oil) 1,000 mg DAILY PO Last administered on 10/22/18 08:38; Start 10/21/18 at 14:00 Lisinopril (Prinivil) 40 mg DAILY PO Last administered on 10/22/18 08:37; Start 10/21/18 at 14:00 Hydralazine HCl (Apresoline) 50 mg BID PO Last administered on 10/22/18 20:59 ; Start 10/21/18 at 14:00 Insulin Glargine (Lantus) 30 units BID SQ Last administered on 10/22/18 21:08 ; Start 10/21/18 at 21:00 Metformin HCl (Glucophage) 1,000 mg BIDWMEALS PO Last administered on at 18:15; Start 10/21/18 at 17:00; Stop 10/22/18 at 09:41; Status DC Non-Formulary Medication (Bow-3 Acid Ethyl Esters (Lovaza)) 2 cap BID PO ; Start 10/21/18 at 21:00; Status UNV Acetaminophen (Tylenol) 650 mg PRN Q6HRS PRN PO MILD PAIN / TEMP Last administered on 10/22/18at 20:59; Start 10/21/18 at 16:30 Bumetanide (Bumex) 1 mg BID92 IV Last administered on 10/22/18at 14:31; Start at 09:00 Heparin Sodium (Porcine) (Heparin Sodium) 5,000 unit Q12HR SQ ; Start 10/21/18 at 21:00; Status UNV Sodium Chloride (Normal Saline Flush) 3 ml QSHIFT PRN IV AFTER MEDS AND BLOOD DRAWS; Start 10/21/18 at 16:45 Morphine Sulfate (Morphine Sulfate) 2 mg PRN Q2HR PRN IV PAIN; Start 10/21/18 at 17:00 Furosemide (Lasix) 40 mg 1X ONCE IVP Last administered on 10/21/18at 20:38; Start 10/21/18 at 20:00; Stop 10/21/18 at 20:01; Status DC Info (Anti-Coagulation Monitoring By Pharmacy) 1 each PRN DAILY PRN MC SEE COMMENTS Last administered on 10/22/18at 08:08; Start 10/22/18 at 08:15 Iohexol (Omnipaque 300 Mg/ml) 100 ml 1X ONCE IV Last administered on at 09:45; Start 10/22/18 at 09:45; Stop 10/22/18 at 09:46; Status DC Active Scripts Active Reported Humalog (Insulin Lispro) 100 Unit/1 Ml Insuln.pen 15 Unit SQ TIDBFRMEAL Lovaza (Bow-3 Acid Ethyl Esters) 1 Gm Capsule 2 Cap PO BID Hydralazine Hcl 50 Mg Tablet 1 Tab PO BID Norvasc (Amlodipine Besylate) 10 Mg Tablet 10 Mg PO DAILY Fish Oil 1,000 Mg Capsule (Bow-3 Fatty Acids/Fish Oil) 1 Each Capsule 1 Each PO DAILY Aspir-Low (Aspirin) 81 Mg Tablet. 1 Tab PO DAILY Eliquis (Apixaban) 5 Mg Tablet 5 Mg PO BID Atorvastatin Calcium 10 Mg Tablet 1 Tab PO DAILY Synthroid (Levothyroxine Sodium) 100 Mcg Tablet 1 Tab PO DAILY Levemir (Insulin Detemir) 100 Unit/1 Ml Vial 30 Unit SQ BID Furosemide 40 Mg Tablet 1 Tab PO DAILY Metformin Hcl 1,000 Mg Tablet 1 Tab PO BID Benazepril Hcl 40 Mg Tablet 1 Tab PO DAILY Glyburide 5 Mg Tablet 1 Tab PO BID Vitals/I & O Vital Sign - Last 24 Hours 10/22/18 10/22/18 10/22/18 10/22/18 08:36 08:37 08:37 11:00 Temp 98.1 98.1 Pulse 85 85 85 81 Resp 18 B/P (MAP) 145/61 (89) Pulse Ox 91 O2 Delivery Room Air 10/22/18 10/22/18 10/22/18 10/22/18 15:00 19:59 20:00 20:59 Temp 97.6 97.6 97.6 97.6 Pulse 86 79 79 Resp 18 B/P (MAP) 143/63 (89) 187/81 (116) 187/81 Pulse Ox 98 97 O2 Delivery Room Air Room Air Room Air 10/22/18 10/23/18 10/23/18 22:54 02:02 07:00 Temp 97.9 97.5 98.2 97.9 97.5 98.2 Pulse 75 70 78 Resp 18 18 18 B/P (MAP) 139/49 (79) 171/62 (98) 140/50 (80) Pulse Ox 96 95 95 O2 Delivery Room Air Room Air Room Air Intake and Output 10/22/18 10/22/18 10/23/18 15:00 23:00 07:00 Intake Total 580 ml 280 ml 900 ml Output Total 1100 ml 1025 ml 500 ml Balance -520 ml -745 ml [address] Abdomen pelvis - 1.Compression of the left common iliac vein via the right common iliac artery. In the appropriate clinical context, findings could be reflective of May Thurner syndrome. Sonography and intravascular ultrasound could be considered as clinically indicated. 2. No evidence of acute thrombosis or significant venous collateralization BRI ALBERTS MD Oct 23, 2018 08:31
[2018-10-23] MEDS: ASPIRIN ENTERIC COATED 81 MG TABLET.DR. PO SCH (08:46)
[2018-10-23] MEDS: INSULIN LISPRO 300 UNITS/3 ML INSULN.PEN. SQ SCH ×3 (08:46→16:30)
[2018-10-23] MEDS: INSULIN GLARGINE 300 UNITS/3 ML INSULN.PEN. SQ SCH (08:46)
[2018-10-23 11:00] VITALS: BP 164/69
--- NOTE | 2018-10-23 11:06 | PDOC ---
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 1106: CARDIO Progress Notes Date and Time Date of Service 10/23/2018 Time of Evaluation 1050 Subjective Subjective: No Chest Pain, No shortness of breath Vitals Vitals Vital Signs Date Time Temp Pulse Resp B/P (MAP) Pulse Ox O2 Delivery O2 Flow Rate FiO2 10/23/18 08:30 76 10/23/18 08:10 Room Air 10/23/18 07:00 98.2 18 140/50 (80) 95 98.2 Weight Weight [ ] Input and Output Intake and Output Intake and Output 10/23/18 07:00 Intake Total 1760 ml Output Total 2625 ml Balance -865 ml Intake Oral 1760 ml Output Urine Total 2625 ml Laboratory Labs Laboratory Tests Test 10/22/18 11:31 10/22/18 13:55 10/22/18 17:41 10/22/18 20:57 Glucose (Fingerstick) 124 mg/dL (70-99) 187 mg/dL (70-99) 213 mg/dL (70-99) Sodium Level 142 mmol/L (136-145) Potassium Level 3.8 mmol/L (3.5-5.1) Chloride Level 104 mmol/L (98-107) Carbon Dioxide Level 30 mmol/L (21-32) Anion Gap 8 (6-14) Blood Urea Nitrogen 25 mg/dL (7-20) Creatinine 1.1 mg/dL (0.6-1.0) Estimated GFR (Cockcroft-Gault) 48.4 Glucose Level 106 mg/dL (70-99) Calcium Level 9.0 mg/dL (8.5-10.1) Magnesium Level 2.2 mg/dL (1.8-2.4) Test 10/23/18 07:34 10/23/18 08:05 Glucose (Fingerstick) 121 mg/dL (70-99) Sodium Level 144 mmol/L (136-145) Potassium Level 3.9 mmol/L (3.5-5.1) Chloride Level 105 mmol/L (98-107) Carbon Dioxide Level 27 mmol/L (21-32) Anion Gap 12 (6-14) Blood Urea Nitrogen 24 mg/dL (7-20) Creatinine 1.2 mg/dL (0.6-1.0) Estimated GFR (Cockcroft-Gault) 43.8 Glucose Level 125 mg/dL (70-99) Calcium Level 9.0 mg/dL (8.5-10.1) Magnesium Level 2.2 mg/dL (1.8-2.4) Physical Exam HEENT: Neck Supple W Full Motion Chest: Symmetric LUNGS: Clear to Auscultation Heart: S1S2, RRR (SR), murmurs (2/6 systolic murmur ) Abdomen: Soft N/T Extremities: Other (3+ pitting bilateral LE edema, bilateral LE rash/erythema) Neurology: alert, oriented, follow commands Assessment Assessment 1. LE edema; Echo showed preserved LV systolic function; EF 55-60% 2. Hypertension: controlled 3. DM2/HLP 4. Bilateral iliac venous compression syndrome: no significant obstruction, no noted collaterals per CT. No DVT per sono 5. H/o DVT on chronic anticoagulation 6. Morbid obesity Recommendations 1. Continue with eliquis. change bumex to PO 2. Lymphedema consult 3. Follow up with Dr. Walls in November 16 8:30 AM 4. Continue with BP regimen RUSTY WALLS MD 10/23/18 1641: CARDIO Progress Notes Plan Plan Pt. seen and examined. Agree with above. Bumex 1 mg daily, would not diurese aggressively Lymphedema referral. Continue supportive care. Stable from CV perspective. SAUL MONTOYA APRN Oct 23, 2018 11:06 RUSTY WALLS MD Oct 23, 2018 16:41
[2018-10-23] MEDS ORDERED: BUME1TAB3 PO ×2 (12:22→15:45)
[2018-10-23] MEDS ORDERED: POTA10TA12 PO (12:22)
--- NOTE | 2018-10-23 12:24 | SNU/HH DC ---
DISCHARGE WITH HOME HEALTH DISCHARGE INFORMATION: Discharge Date: Oct 23, 2018 Final Diagnosis: Acute lymphedema, acute diastolic CHF Condition on Discharge: Stable HOME HEALTH: Face to Face: I certify this patient is under my care and that I, or a nurse practitioner or physician's zoning assistant working with me, had a face to face encounter that meets the physician face to face encounter requirements with this patient on 10/23/18. Medical Complications: CHF RN For Eval/Treatment: Yes Physical Therapy For: Evalulation/Treatment Occupational Therapy For: Other: (LYMPHEDEMA NURSE (OT)) Pt Meets Homebound Status: Extreme weakness w/ amb., Limited distance walking POST DISCHARGE ORDERS: Activity Instructions for Disc: No restrictions Weight Bearing Status after Di: As tolerated DIET AFTER DISCHARGE: ADA Wound/Incision Care: Reinforce dressing PRN CHECKS AFTER DISCHARGE: Checks after discharge: Check blood press - daily, Check blood sugar, ac/hs FOLLOW-UP: Follow up with: Cardiology - Dr. Mcarthur TREATMENT/EQUIPMENT ORDERS: Adaptive Equipment Issued: None CERTIFICATION STATEMENT: Certification Statement: Certification Statement: Based on the above finding, I certify that this patient is confined to the home and needs intermittent retirement care, physical therapy and/or speech therapy, or continues to need occupational therapy.~ This patient is under my care, and I have initiated the establishment of the plan of care.~ This patient will be followed by myself or a community physician who will periodically review the plan of care. Home Meds Active Scripts Potassium Chloride (KLOR-CON 10) 10 Meq Tablet.er, 10 MEQ PO DAILYWBKFT for Hypokalemia for 30 Days, #30 TAB.SR Prov:BRI ALBERTS MD 10/23/18 Bumetanide (BUMETANIDE) 1 Mg Tablet, 1 MG PO BID94 for EDEMA for 7 Days, #14 TAB Prov:BRI ALBERTS MD 10/23/18 Reported Medications Insulin Lispro (HUMALOG) 100 Unit/1 Ml Insuln.pen, 15 UNIT SQ TIDBFRMEAL for insulin, SYR 10/21/18 [place]-3 Acid Ethyl Esters (LOVAZA) 1 Gm Capsule, 2 CAP PO BID for omega 3 , # 120 CAP 5 Refills 10/21/18 Hydralazine Hcl (HYDRALAZINE HCL) 50 Mg Tablet, 1 TAB PO BID for htn, #180 TAB 3 Refills 10/21/18 Amlodipine Besylate (NORVASC) 10 Mg Tablet, 10 MG PO DAILY for htn, TAB 10/21/18 [place]-3 Fatty Acids/Fish Oil (FISH OIL 1,000 MG CAPSULE) 1 Each Capsule, 1 EACH PO DAILY for supplement , CAP 10/21/18 Aspirin (ASPIR-LOW) 81 Mg Tablet.dr, 1 TAB PO DAILY for blood thinner, #30 TAB 3 Refills 10/21/18 Apixaban (ELIQUIS) 5 Mg Tablet, 5 MG PO BID for blood thinner , TAB 10/21/18 Atorvastatin Calcium (ATORVASTATIN CALCIUM) 10 Mg Tablet, 1 TAB PO DAILY for cholesterol, #30 TAB 5 Refills 10/21/18 Levothyroxine Sodium (SYNTHROID) 100 Mcg Tablet, 1 TAB PO DAILY for hypothyroidism , #30 TAB 5 Refills 10/21/18 Insulin Detemir (LEVEMIR) 100 Unit/1 Ml Vial, 30 UNIT SQ BID for diabetes , VIAL 08/13/14 Metformin Hcl (METFORMIN HCL) 1,000 Mg Tablet, 1 TAB PO BID, #60 TAB 5 Refills 08/13/14 Benazepril Hcl (BENAZEPRIL HCL) 40 Mg Tablet, 1 TAB PO DAILY, #30 TAB 5 Refills 08/13/14 Glyburide (GLYBURIDE) 5 Mg Tablet, 1 TAB PO BID, #60 TAB 5 Refills 08/13/14 Discontinued Reported Medications Furosemide (FUROSEMIDE) 40 Mg Tablet, 1 TAB PO DAILY, #30 TAB 5 Refills 08/13/14 Simvastatin (SIMVASTATIN) 20 Mg Tablet, 1 TAB PO QHS, #30 TAB 5 Refills 08/13/14 BRI ALBERTS MD Oct 23, 2018 12:23
--- NOTE | 2018-10-23 12:55 | PDOC3 ---
Discharge Summary Visit Information Date of Admission: Oct 21, 2018 Date of Discharge: Oct 23, 2018 Admitting Diagnosis: Acute diastolic CHF exacerbation Final Diagnosis Acute dCHF Brief Hospital Course Allergies Allergies Coded Allergies Type Severity Reaction Last Updated Verified Sulfa (Sulfonamide Antibiotics) Allergy Intermediate HIVES 02/04/18 No Vital Signs Vital Signs Date Time Temp Pulse Resp B/P (MAP) Pulse Ox O2 Delivery O2 Flow Rate FiO2 10/23/18 11:00 97.3 73 18 164/69 (100) 97 Room Air 97.3 Lab Results Laboratory Tests Test 10/21/18 13:51 10/21/18 14:03 10/21/18 16:42 10/21/18 16:47 Glucose (Fingerstick) 55 mg/dL (70-99) 90 mg/dL (70-99) 211 mg/dL (70-99) White Blood Count 7.7 x10^3/uL (4.0-11.0) Red Blood Count 3.37 x10^6/uL (3.50-5.40) Hemoglobin 9.1 g/dL (12.0-15.5) Hematocrit 28.6 % (36.0-47.0) Mean Corpuscular Volume 85 fL (79-100) Mean Corpuscular Hemoglobin 27 pg (25-35) Mean Corpuscular Hemoglobin Concent 32 g/dL (31-37) Red Cell Distribution Width 16.3 % (11.5-14.5) Platelet Count 185 x10^3/uL (140-400) Neutrophils (%) (Auto) 61 % (31-73) Lymphocytes (%) (Auto) 30 % (24-48) Monocytes (%) (Auto) 7 % (0-9) Eosinophils (%) (Auto) 2 % (0-3) Basophils (%) (Auto) 1 % (0-3) Neutrophils # (Auto) 4.7 x10^3uL (1.8-7.7) Lymphocytes # (Auto) 2.3 x10^3/uL (1.0-4.8) Monocytes # (Auto) 0.5 x10^3/uL (0.0-1.1) Eosinophils # (Auto) 0.2 x10^3/uL (0.0-0.7) Basophils # (Auto) 0.0 x10^3/uL (0.0-0.2) Sodium Level 142 mmol/L (136-145) Potassium Level 4.0 mmol/L (3.5-5.1) Chloride Level 104 mmol/L (98-107) Carbon Dioxide Level 29 mmol/L (21-32) Anion Gap 9 (6-14) Blood Urea Nitrogen 26 mg/dL (7-20) Creatinine 1.2 mg/dL (0.6-1.0) Estimated GFR (Cockcroft-Gault) 43.8 BUN/Creatinine Ratio 22 (6-20) Glucose Level 230 mg/dL (70-99) Hemoglobin A1c 7.0 % (4.8-5.6) Calcium Level 8.9 mg/dL (8.5-10.1) Phosphorus Level 4.0 mg/dL (2.6-4.7) Magnesium Level 2.4 mg/dL (1.8-2.4) Total Bilirubin 0.4 mg/dL (0.2-1.0) Aspartate Amino Transf (AST/SGOT) 16 U/L (15-37) Alanine Aminotransferase (ALT/SGPT) 18 U/L (14-59) Alkaline Phosphatase 69 U/L (46-116) WE-Bbl-U-Type Natriuretic Peptide 223 pg/mL (0-449) Total Protein 6.8 g/dL (6.4-8.2) Albumin 3.3 g/dL (3.4-5.0) Albumin/Globulin Ratio 0.9 (1.0-1.7) Thyroid Stimulating Hormone (TSH) 3.410 uIU/mL (0.358-3.74) Test 10/21/18 20:38 10/22/18 08:09 10/22/18 11:31 10/22/18 13:55 Glucose (Fingerstick) 193 mg/dL (70-99) 136 mg/dL (70-99) 124 mg/dL (70-99) Sodium Level 142 mmol/L (136-145) Potassium Level 3.8 mmol/L (3.5-5.1) Chloride Level 104 mmol/L (98-107) Carbon Dioxide Level 30 mmol/L (21-32) Anion Gap 8 (6-14) Blood Urea Nitrogen 25 mg/dL (7-20) Creatinine 1.1 mg/dL (0.6-1.0) Estimated GFR (Cockcroft-Gault) 48.4 Glucose Level 106 mg/dL (70-99) Calcium Level 9.0 mg/dL (8.5-10.1) Magnesium Level 2.2 mg/dL (1.8-2.4) Test 10/22/18 17:41 10/22/18 20:57 10/23/18 07:34 10/23/18 08:05 Glucose (Fingerstick) 187 mg/dL (70-99) 213 mg/dL (70-99) 121 mg/dL (70-99) Sodium Level 144 mmol/L (136-145) Potassium Level 3.9 mmol/L (3.5-5.1) Chloride Level 105 mmol/L (98-107) Carbon Dioxide Level 27 mmol/L (21-32) Anion Gap 12 (6-14) Blood Urea Nitrogen 24 mg/dL (7-20) Creatinine 1.2 mg/dL (0.6-1.0) Estimated GFR (Cockcroft-Gault) 43.8 Glucose Level 125 mg/dL (70-99) Calcium Level 9.0 mg/dL (8.5-10.1) Magnesium Level 2.2 mg/dL (1.8-2.4) Test 10/23/18 12:18 Glucose (Fingerstick) 121 mg/dL (70-99) Laboratory Tests Test 10/22/18 13:55 10/22/18 17:41 10/22/18 20:57 10/23/18 07:34 Sodium Level 142 mmol/L (136-145) Potassium Level 3.8 mmol/L (3.5-5.1) Chloride Level 104 mmol/L (98-107) Carbon Dioxide Level 30 mmol/L (21-32) Anion Gap 8 (6-14) Blood Urea Nitrogen 25 mg/dL (7-20) Creatinine 1.1 mg/dL (0.6-1.0) Estimated GFR (Cockcroft-Gault) 48.4 Glucose Level 106 mg/dL (70-99) Calcium Level 9.0 mg/dL (8.5-10.1) Magnesium Level 2.2 mg/dL (1.8-2.4) Glucose (Fingerstick) 187 mg/dL (70-99) 213 mg/dL (70-99) 121 mg/dL (70-99) Test 10/23/18 08:05 10/23/18 12:18 Sodium Level 144 mmol/L (136-145) Potassium Level 3.9 mmol/L (3.5-5.1) Chloride Level 105 mmol/L (98-107) Carbon Dioxide Level 27 mmol/L (21-32) Anion Gap 12 (6-14) Blood Urea Nitrogen 24 mg/dL (7-20) Creatinine 1.2 mg/dL (0.6-1.0) Estimated GFR (Cockcroft-Gault) 43.8 Glucose Level 125 mg/dL (70-99) Calcium Level 9.0 mg/dL (8.5-10.1) Magnesium Level 2.2 mg/dL (1.8-2.4) Glucose (Fingerstick) 121 mg/dL (70-99) Brief Hospital Course 73 yo F w PMHx hypertension, diabetes, dyslipidemia who was in her usual state of health until she was evaluated at her design manager office, called for admission on 10/21. She was noted to have bilateral edema over her extremities. Patient refers having great deal of discomfort as a consequence of the increase in her edema over the last week more or less. She has been dealing with her symptoms for at least 2 years. Patient denies trauma denies fever she has had chills she denies breaks in her skin. She had been wearing compression stockings but due to the increase in swelling she has not been able to wear them lately. The patient denied chest pain palpitations she has had episodes where she wakes up in the middle the night with paroxysmal to dyspnea she denies dietary transgressions no increase in salt intake no changes to her medications have been done recently. She is being admitted the request of her primary design manager for further investigation and ruling out congestive heart failure as an etiology for her lower semi-edema and proximal internal dyspnea. The patient at the time my evaluation is laying comfortably in Trendelenburg with her legs and elevation. No chest pain no shortness of breath is reported at this time no headache blurred vision, trouble swallowing no palpitations no abdominal pain no nausea no vomiting no diarrhea were voiced by the patient. No urinary symptoms either No acute events reported overnight, feeling better compared to admission, still with LE edema, but overall improving. 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 S/p OT lymphedema wrapping today. Has not been able to fit into her home compression stockings recently. Seen by cardiology, had IV diuresis for 2 days, transitioned to oral well. A/P: Bilateral lower extremity edema most likely vascular etiology History of essential hypertension Diabetes mellitus type 2 insulin requiring Dyslipidemia Obesity with a BMI of 39 Suspect obesity hypoventilation syndrome she doesn't use a CPAP machine Plan work up as per vmware consultant with venogram today continue home medications Evaluation as per cardiology for congestive heart failure Compression stockings continue Bumex Further recommendations will be based on the clinical course May benefit from sleep study in the outpatient setting DVT prophylaxis with heparin Greater than 30 minutes spent on discharge Discharge Information Condition at Discharge: Improved Follow Up: Weeks (2) Disposition/Orders: D/C to Home w/ HH ([facility]) Scheduled Amlodipine Besylate (Norvasc) 10 Mg Tablet, 10 MG PO DAILY for htn, (Reported) Entered as Reported by: RONNIE ARMAS on 10/21/18 123 Last Action: Continued on 10/21/181248 by RONNIE ARMAS Apixaban (Eliquis) 5 Mg Tablet, 5 MG PO BID for blood thinner , (Reported) Entered as Reported by: RONNIE ARMAS on 10/21/18 1232 Last Action: Continued on 10/21/181248 by RONNIE ARMAS Aspirin (Aspir-Low) 81 Mg Tablet.dr, 1 TAB PO DAILY for blood thinner, #30 Ref 3 (Reported) Entered as Reported by: RONNIE ARMAS on 10/21/18 1232 Last Action: Continued on 10/21/181248 by RONNIE ARMAS Atorvastatin Calcium (Atorvastatin Calcium) 10 Mg Tablet, 1 TAB PO DAILY for cholesterol, #30 Ref 5 (Reported) Entered as Reported by: RONNIE ARMAS on 10/21/18 1232 Last Action: Continued on 10/21/181248 by RONNIE ARMAS Benazepril Hcl (Benazepril Hcl) 40 Mg Tablet, 1 TAB PO DAILY, #30 Ref 5 ( Reported) Entered as Reported by: PA HUSSEIN on 08/13/14 5105 Last Action: Converted on 10/21/18 1249 by RONNIE ARMAS Bumetanide (Bumetanide) 1 Mg Tablet, 1 MG PO BID94 for EDEMA for 7 Days, #14 Prescribed by: BRI ALBERTS MD on 10/23/18 1222 Glyburide (Glyburide) 5 Mg Tablet, 1 TAB PO BID, #60 Ref 5 (Reported) Entered as Reported by: PA HUSSEIN on 08/13/142212 Last Action: Continued on 10/21/181248 by RONNIE ARMAS Hydralazine Hcl (Hydralazine Hcl) 50 Mg Tablet, 1 TAB PO BID for htn, #180 Ref 3 (Reported) Entered as Reported by: RONNIE ARMAS on 10/21/181231 Last Action: Converted on 10/21/181248 by RONNIE ARMAS Insulin Detemir (Levemir) 100 Unit/1 Ml Vial, 30 UNIT SQ BID for diabetes , ( Reported) Entered as Reported by: PA HUSSEIN on 08/13/142212 Last Action: Converted on 10/21/181248 by RONNIE ARMAS Insulin Lispro (Humalog) 100 Unit/1 Ml Insuln.pen, 15 UNIT SQ TIDBFRMEAL for insulin, (Reported) Entered as Reported by: RONNIE ARMAS on 10/21/181231 Last Action: Continued on 10/21/181248 by RONNIE ARMAS Levothyroxine Sodium (Synthroid) 100 Mcg Tablet, 1 TAB PO DAILY for hypothyroidism , #30 Ref 5 (Reported) Entered as Reported by: RONNIE ARMAS on 10/21/181231 Last Action: Continued on 10/21/181248 by RONNIE ARMAS Metformin Hcl (Metformin Hcl) 1,000 Mg Tablet, 1 TAB PO BID, #60 Ref 5 (Reported ) Entered as Reported by: PA HUSSEIN on 08/13/142212 Last Action: Converted on 10/21/181248 by RONNIE ARMAS [place]-3 Acid Ethyl Esters (Lovaza) 1 Gm Capsule, 2 CAP PO BID for omega 3 , # 120 Ref 5 (Reported) Entered as Reported by: RONNIE ARMAS on 10/21/181231 Last Action: Converted on 10/21/181248 by RONNIE ARMAS [place]-3 Fatty Acids/Fish Oil (Fish Oil 1,000 Mg Capsule) 1 Each Capsule, 1 EACH PO DAILY for supplement , (Reported) Entered as Reported by: RONNIE ARMAS on 10/21/18 1232 Last Action: Continued on 10/21/18 1249 by RONNIE ARMAS Potassium Chloride (Klor-Con 10) 10 Meq Tablet.er, 10 MEQ PO DAILYWBKFT for Hypokalemia for 30 Days, #30 Prescribed by: BRI ALBERTS MD on 10/23/18 1222 Discontinued Medications Furosemide (Furosemide) 40 Mg Tablet, 1 TAB PO DAILY, #30 Ref 5 (Reported) Entered as Reported by: PA HUSSEIN on 08/13/142212 Simvastatin (Simvastatin) 20 Mg Tablet, 1 TAB PO QHS, #30 Ref 5 (Reported) Entered as Reported by: PA HUSSEIN on 08/13/143 Last Action: Discontinued on 10/21/18 1221 by BRI SIMMS MD Oct 23, 2018 12:55
[2018-10-23 14:49] VITALS: BP 132/58
[2018-10-23] MEDS ORDERED: BUMETANIDE 1 MG TABLET. PO SCH (16:00)
--- NOTE | 2018-10-23 19:09 | RAD ---
MR#: [id number] Date of Study: 10/22/2018 Ordering Physician: BETTY GAN, Referring Physician: ROHIT LECHUGA Tech: Tiera Jean BS, RTR, RDMS, RVT APPROVED REPORT Patient Location: IN-PATIENT Indications Possible May Thurner; Bilateral Lower Extremity edema Duplex Results A/PTransverseLongitudinal Proximal Aorta 2.3cm Mid Aorta 2.1cm Distal Aorta 2.1cm Findings Grayscale images of the abdominal aorta demonstrate mild to moderate nonobstructive athero-'s chronic plaquing. Dimensions as noted above without any significant evidence of aneurysm. Bilateral common iliac arteries are patent. No focal obstruction noted. Bilateral common iliac veins are also patent without any significant obstruction to flow. Critical Notification Critical Value: No <Conclusion> No clear evidence of May thurner syndrome by aortic duplex scanning. Signed by : Jez Givens, Electronically Approved : 10/23/2018 19:08:53
--- NOTE | 2018-10-23 19:10 | RAD ---
MR#: [id number] Date of Study: 10/22/2018 Ordering Physician: JOSÉ LUIS COLUNGA, Referring Physician: ROHIT LECHUGA, Tech: Tiera Jean BS, RTR, RDMS, RVT APPROVED REPORT Bilateral Lower Extremity Venous Study for DVT Patient Location: IN-PATIENT Indications Lower Extremity Edema: Bilateral Findings The bilateral lower extremity deep veins were evaluated for thrombus with color Doppler, spectral and grayscale images. On the right the grayscale images of the common femoral, superficial femoral and popliteal veins do n ot demonstrate any evidence of thrombus and these veins appear to be compressible. The below-knee vei ns were not well visualized but grossly appear to be compressible. Spectral imaging and color Doppler do not reveal any evidence of obstruction to flow with normal respirophasic variation above the knee . Below the knee there is spontaneous flow noted. On the left, the grayscale images of the common femoral, superficial femoral and popliteal veins do n ot demonstrate any evidence of thrombus and these veins appear to be compressible. The below-knee vei ns again were not well visualized but grossly appear to be compressible. Spectral imaging and color D oppler do not reveal any evidence of obstruction to flow with normal respirophasic variation above th e knee. The below-knee veins demonstrate spontaneous flow. Critical Notification Critical Value: No <Conclusion> Negative for DVT in the LE Signed by : Jez Givens, Electronically Approved : 10/23/2018 19:10:10
[2018-10-24] MEDS ORDERED: POTASSIUM CHLORIDE 10 MEQ TABLET.ER. PO SCH (08:00)
[2018-10-24] MEDS ORDERED: BUMETANIDE 1 MG TABLET. PO SCH (09:00)
== END 2018-10-23 19:30 | disposition home health service (06) | DRG 292 ==
LOC: 2 NORTH 10:05
PROVIDERS: ADMIT Internal Medicine; ATTEND Internal Medicine
DX: I11.0 Hypertensive heart disease with heart failure (principal); I87.1 Compression of vein; I87.2 Venous insufficiency (chronic) (peripheral); I50.33 Acute on chronic diastolic (congestive) heart failure; E66.01 Morbid (severe) obesity due to excess calories; I89.0 Lymphedema, not elsewhere classified; E78.5 Hyperlipidemia, unspecified; E03.9 Hypothyroidism, unspecified; G47.33 Obstructive sleep apnea (adult) (pediatric); Z90.710 Acquired absence of both cervix and uterus; Z68.39 Body mass index [BMI] 39.0-39.9, adult; Z90.49 Acquired absence of other specified parts of digestive tract; Z88.2 Allergy status to sulfonamides; Z79.4 Long term (current) use of insulin; Z86.718 Personal history of other venous thrombosis and embolism; Z79.01 Long term (current) use of anticoagulants; Q96.9 Turner's syndrome, unspecified
CPT/HCPCS: 36415; 71046; 74177; 80048; 80053; 82962; 83036; 83735; 83880; 84100; 84443; 85025; 93306; 93970; 93978; J1815; J1940; J3490; Q9967; 97140; 97530; 97535

== ENCOUNTER → 2019-04-26 | Outpatient (CLI) | payer MEDICARE, BC ==
[~2019-04-26] MED LIST changes: +AMLO10TA4 PO; +APIX5TAB PO; +ASPI81TA50 PO; +ATOR10TA60 PO; +BUME1TAB3 PO; +HYDR-2869 PO; +INSU100I11 SQ; +LEVO100T PO; +OMEG1CAP2 PO; +OMEG1CAP6 PO; +POTA10TA12 PO
[2019-04-26 11:19] LABS: CALCIUM 9.1 mg/dL (8.5-10.1); GFR 53.9; POTASSIUM 4.8 mmol/L (3.5-5.1)
== END | disposition home or self-care (01) ==
LOC: LAB 10:30
PROVIDERS: ATTEND Internal Medicine Cardiovascular Disease
DX: I89.0 Lymphedema, not elsewhere classified (principal)
CPT/HCPCS: 36415; 80048; 83880

== ENCOUNTER → 2021-06-15 | Outpatient (CLI) | payer MEDICARE, BC ==
[~2021-06-15] MED LIST changes: -BENA40TA3 PO; +BENA40TA74 PO; +DULA0.75 SQ; +ISOS30TA68 PO; +LEVO-101 PO; -LEVO100T PO; +LEVO125T5 PO; +LISI20TA18 PO; +LOSA100T14 PO; +SIMV20TA18 PO; -SIMV20TA3 PO
--- NOTE | 2021-06-15 16:26 | RAD ---
EXAM: PA and Lateral Views of the Chest DATE: 06/15/2021 11:52 AM INDICATION: Reason: SHORTNESS OF BREATH / Spl. Instructions: / History: COMPARISON: No Prior FINDINGS: Diffuse right upper lung airspace opacities may represent consolidative process such as pneumonia. Un derlying mass is not excluded and CT follow-up following treatment is recommended. Trace right pleura l effusion. No pneumothorax. Cardiomediastinal silhouette is otherwise stable. IMPRESSION: Diffuse right upper lung airspace opacities may represent consolidative process such as pneumonia. Un derlying mass is not excluded and CT follow-up following treatment is recommended Electronically signed by: Rodney Leung MD (06/15/2021 4:24 PM) [id number]
== END ==
LOC: RAD 11:26
PROVIDERS: ATTEND Family Medicine
DX: R91.8 Other nonspecific abnormal finding of lung field (principal); R06.02 Shortness of breath
CPT/HCPCS: 71046

== ENCOUNTER 2021-07-26 10:38 | Inpatient (IN) | payer MEDICARE, BC ==
[~2021-07-26] VITALS: Ht 165.1 cm; Wt 89.3 kg
[~2021-07-26 10:38] MED LIST changes: +HYDR-2761 PO; +IPRA3AMP29 NEB; +LEVO500T9 PO; +LINE600T12 PO
[2021-07-26] MEDS ORDERED: ONDANSETRON PF 4 MG/2 ML VIAL. IVP ONE (11:00)
--- NOTE | 2021-07-26 11:16 | PHYS DOC ---
Past Medical History Past Medical History: Diabetes-Type II, DVT, Hypertension Additional Past Medical Histor: PCOS Past Surgical History: Other Additional Past Surgical Histo: Ovarian surgery Smoking Status: Former Smoker Alcohol Use: None Drug Use: None General Adult EDM: Chief Complaint: Palpitations HPI: HPI: Patient is a 76 year old female who presents with healthcare resort for palpit ations and nausea, vomiting, shortness of breath and a headache to the top of her head. She states this is all mostly started in the last 24 hours. She states she is also had continued diarrhea since she had COVID. She had COVID about 4 weeks ago. She denies abdominal pain, dizziness, chest pain, numbness tingling, focal weakness, vision change, chills or fever. Patient has a history of pneumonia, type 2 diabetes, COPD, hypertension, hyperlipidemia, hypothyroidism, difficulty walking, unsteadiness on feet, needing assistance with personal care. Patient rates her pain a 7 out of 10. Review of Systems: Review of Systems: Constitutional: Denies fever or chills. [] Eyes: Denies change in visual acuity. [] HENT: Denies nasal congestion or sore throat. [] Respiratory: Denies cough or +shortness of breath. [] Cardiovascular: Denies chest pain or edema. [] GI: Denies abdominal pain, +nausea, +vomiting, denies bloody stools or diarrhea. [] : Denies dysuria. [] Musculoskeletal: Denies back pain or joint pain. [] Integument: Denies rash. [] Neurologic: + headache, denies focal weakness or sensory changes. [] Endocrine: Denies polyuria or polydipsia. [] Lymphatic: Denies swollen glands. [] Psychiatric: Denies depression or anxiety. [] Heart Score: C/O Chest Pain: No HEART Score for Chest Pain: HEART Score for Chest Pain Response (Comments) Value History Slighlty/Non-Suspicious 0 ECG Nonspecific Repolarizatio 1 Age > 65 2 Risk Factors >3 Risk Factors or Hx CAD 2 Troponin < Normal Limit 0 Total 5 Risk Factors: Risk Factors: DM, Current or recent (<one month) smoker, HTN, HLP, family history of CAD, obesity. Risk Scores: Score 0 - 3: 2.5% MACE over next 6 weeks - Discharge Home Score 4 - 6: 20.3% MACE over next 6 weeks - Admit for Clinical Observation Score 7 - 10: 72.7% MACE over next 6 weeks - Early Invasive Strategies Current Medications: Current Medications Medications (Trade) Dose Ordered Sig/Matt Start Time Stop Time Status Last Admin Dose Admin Ondansetron HCl (Zofran) 4 mg 1X ONCE 07/26/21 11:00 07/26/21 11:01 DC Allergies: Allergies: Allergies Coded Allergies Type Severity Reaction Last Updated Verified Sulfa (Sulfonamide Antibiotics) Allergy Intermediate HIVES 06/15/21 No Physical Exam: PE: Constitutional: Well developed, well nourished, no acute distress, non-toxic appearance. [] HENT: Normocephalic, atraumatic, bilateral external ears normal, oropharynx moist, no oral exudates, nose normal. [] Eyes: PERRLA, EOMI, conjunctiva normal, no discharge. [] Neck: Normal range of motion, no tenderness, supple, no stridor. [] Cardiovascular:Heart rate regular rhythm, no murmur [] Lungs & Thorax: Bilateral upper breath sounds clear lower diminished to auscultation [] Abdomen: Bowel sounds normal, soft, no tenderness, no masses, no pulsatile masses. [] Skin: Warm, dry, no erythema, no rash. [] Back: No tenderness, no CVA tenderness. [] Extremities: No tenderness, no cyanosis, no clubbing, ROM intact, bilateral 1+ edema. [] Neurologic: Alert and oriented X 3, normal motor function, normal sensory function, no focal deficits noted. [] Psychologic: Affect normal, judgement normal, mood normal. [] EKG: EK and read by Dr. Walker as sinus tachycardia some atrial premature complexes no STEMI. [address] Walker as AFIB RVR and no STEMI Radiology/Procedures: Radiology/Procedures: [] Impression: [facility] [address] [place], [place] [id number] IMAGING REPORT Signed PATIENT: HERBIE LOVELACE ACCOUNT: [id number] : 1945 LOCATION: ER AGE: 76 SEX: F EXAM STATUS: PRE ER ORD. PHYSICIAN: SONI NICHOLSON APRN REASON: VOMITING PROCEDURE: CT ABDOMEN PELVIS WO CONTRAST CT abdomen pelvis without contrast dated 07/26/2021. COMPARISON: 10/22/2018. CLINICAL INDICATION: Vomiting. TECHNIQUE: Contiguous axial imaging the abdomen pelvis performed without the administration of IV or oral contrast. One or more of the following individualized dose reduction techniques were utilized for this examination: 1. Automated exposure control 2. Adjustment of the mA and/or kV according to patient size 3. Use of iterative reconstruction technique. FINDINGS: Images of lung bases show consolidation of the right lower lobe and right middle lobe with moderate size right pleural effusion, new from prior study. There are also enlarged lymph nodes at the subcarinal region and right hilum. Mild patchy groundglass opacity in the left upper lobe and left lower lobe. No left pleural effusion. Solid abdominal viscera not well evaluated in the absence of contrast material. No apparent attenuation abnormality of the liver or spleen. Gallbladder surgically absent. Pancreas is somewhat atrophic. Kidneys unremarkable. No stone or hydronephrosis. Fatty mass at the right adrenal gland measuring 2.2 cm consistent with myelolipoma. Unopacified GI tract normal in caliber and contour. No focal bowel wall thickening. No inflammatory stranding in the mesentery. The appendix is normal in caliber. No ascites or lymphadenopathy. Abdominal aorta normal in caliber. Images of pelvis show nondistended urinary bladder. Coats catheter in place. Uterus is surgically absent. No free fluid or pelvic lymphadenopathy. Bone windows show no acute findings. Multilevel spondylosis. There is partial fusion of the thoracolumbar spine. A large radiolucent lesion of the proximal right femur is incompletely included on the study but measures up to 6.5 cm in size, new from the 2019 exam. There is defect within the anterior and posterior cortex consistent with pathologic fracture. IMPRESSION: 1. No acute abnormality of abdomen or pelvis. Normal appendix. 2. Left basilar consolidation with hilar and mediastinal lymphadenopathy in moderate size right pleural effusion. This could be related atelectasis or pneumonia. Neoplastic processes not excluded. Correlate clinically. 3. There is a large lytic lesion at the proximal right femur, new from the 2019 exam, also indeterminate. This could be related to metastatic disease. There is a suspected pathologic fracture. 4. Right adrenal myelolipoma Electronically signed by: Kashif Mcneal MD (07/26/2021 11:29 AM) [id number] DICTATED and SIGNED BY: KASHIF MCNEAL MD DATE: 07/26/21 [id number] [place] [address] IMAGING REPORT Signed PATIENT: HERBIE LOVELACE ACCOUNT: [id number] : 1945 LOCATION: ER AGE: 76 SEX: F EXAM STATUS: PRE ER ORD. PHYSICIAN: SONI NICHOLSON APRN REASON: VOMTIING, SOA PROCEDURE: PORTABLE CHEST 1V EXAM: Chest, single view. HISTORY: Vomiting and shortness of air. COMPARISON: 06/22/2021 FINDINGS: A frontal view of the chest is obtained. There is increased right upper lobe consolidation and suspected partial collapse. There is stable right middle and lower lobe interstitial infiltrate. There is increased left upper lobe interstitial infiltrate. The heart is stable in size. There is stable elevation of the right hemithorax and a small right pleural effusion. IMPRESSION: 1. Slight increased right upper lobe consolidation and suspected partial collapse. This obscures a right upper lobe mass demonstrated on prior cross- sectional imaging. 2. Stable right and increased left lung no focal interstitial infiltrate. 3. Stable elevation of the right hemidiaphragm and small right pleural effusion. Electronically signed by: Raeann Fontenot MD (07/26/2021 11:22 AM) [id number] DICTATED and SIGNED BY: RAEANN FONTENOT MD DATE: 07/26/21 [id number] [place] [address] IMAGING REPORT Signed PATIENT: HERBIE LOVELACE ACCOUNT: [id number] : 1945 LOCATION: ER AGE: 76 SEX: F EXAM STATUS: PRE ER ORD. PHYSICIAN: SONI NICHOLSON APRN REASON: HEADACHE PROCEDURE: CT HEAD WO CONTRAST EXAM: Head CT without contrast. HISTORY: Headache. TECHNIQUE: Computed tomographic images of the head were obtained without contrast. *One or more of the following individualized dose reduction techniques were utilized for this examination: 1. Automated exposure control. 2. Adjustment of the mA and/or kV according to patient size. 3. Use of iterative reconstruction technique. COMPARISON: 02/03/2018. FINDINGS: There is no acute or subacute extra-axial or intraparenchymal hemorrhage. There is no mass effect or midline shift. There is no hydrocephalus. There are areas of decreased attenuation within the cerebral white matter, nonspecific and likely related to chronic small vessel disease. The visualized portions of the orbits, paranasal sinuses and mastoid air cells are unremarkable. No suspicious calvarial lesion is seen. IMPRESSION: No acute intracranial findings. Electronically signed by: Raeann Fontenot MD (07/26/2021 11:20 AM) [id number] DICTATED and SIGNED BY: RAEANN FONTENOT MD DATE: 07/26/21 [id number] 0 Course & Med Decision Making: Course & Med Decision Making Pertinent Labs and Imaging studies reviewed. (See chart for details) See HPI. Alert and oriented x4. Speaks in full clear sentences. Abdomen is soft and nontender. Lungs are clear in upper lobes and diminished in lower lobes. Bilateral peripheral edema 1-2+. Vomiting green bile. Afebrile. Moving all of her extremities. Coats catheter draining yellow urine. On monitor patient is coming in looks like A. fib with RVR. CT abdomen pelvis and chest x-ray look like she may have new onset cancer with metastatis. I spoke to Dr. Coffey for admission. I spoke to [place] nurse practitioner with cardiology about new onset A. fib and slightly elevated troponin at 60. David Disclaimer: David Disclaimer: This electronic medical record was generated, in whole or in part, using a voice recognition dictation system. Departure Departure Impression: Primary Impression: New onset a-fib Additional Impression: Abnormal CT of the abdomen Disposition: ADMITTED INPATIENT Admitting Physician: HIMS Condition: STABLE Referrals: KASHIF GRAHAM MD (PCP) SONI NICHOLSON APRN Jul 26, 2021 11:16
--- NOTE | 2021-07-26 11:23 | RAD ---
EXAM: Head CT without contrast. HISTORY: Headache. TECHNIQUE: Computed tomographic images of the head were obtained without contrast. *One or more of the following individualized dose reduction techniques were utilized for this examina tion: 1. Automated exposure control. 2. Adjustment of the mA and/or kV according to patient size. 3. Use of iterative reconstruction technique. COMPARISON: 02/03/2018. FINDINGS: There is no acute or subacute extra-axial or intraparenchymal hemorrhage. There is no mass effect or midline shift. There is no hydrocephalus. There are areas of decreased attenuation within the cerebral white matter, nonspecific and likely rel ated to chronic small vessel disease. The visualized portions of the orbits, paranasal sinuses and mastoid air cells are unremarkable. No s uspicious calvarial lesion is seen. IMPRESSION: No acute intracranial findings. Electronically signed by: Raeann Laboy MD (07/26/2021 11:20 AM) [id number]
--- NOTE | 2021-07-26 11:25 | RAD ---
EXAM: Chest, single view. HISTORY: Vomiting and shortness of air. COMPARISON: 06/22/2021 FINDINGS: A frontal view of the chest is obtained. There is increased right upper lobe consolidation and suspected partial collapse. There is stable right middle and lower lobe interstitial infiltrate. There is increased left upper lobe interstitial infiltrate. The heart is stable in size. There is sta ble elevation of the right hemithorax and a small right pleural effusion. IMPRESSION: 1. Slight increased right upper lobe consolidation and suspected partial collapse. This obscures a ri ght upper lobe mass demonstrated on prior cross-sectional imaging. 2. Stable right and increased left lung no focal interstitial infiltrate. 3. Stable elevation of the right hemidiaphragm and small right pleural effusion. Electronically signed by: Raaenn Laboy MD (07/26/2021 11:22 AM) [id number]
--- NOTE | 2021-07-26 11:32 | RAD ---
CT abdomen pelvis without contrast dated 07/26/2021. COMPARISON: 10/22/2018. CLINICAL INDICATION: Vomiting. TECHNIQUE: Contiguous axial imaging the abdomen pelvis performed without the administration of IV or oral contra st. One or more of the following individualized dose reduction techniques were utilized for this examinat ion: 1. Automated exposure control 2. Adjustment of the mA and/or kV according to patient size 3. Use of iterative reconstruction technique. FINDINGS: Images of lung bases show consolidation of the right lower lobe and right middle lobe with moderate s ize right pleural effusion, new from prior study. There are also enlarged lymph nodes at the subcarin al region and right hilum. Mild patchy groundglass opacity in the left upper lobe and left lower lobe . No left pleural effusion. Solid abdominal viscera not well evaluated in the absence of contrast material. No apparent attenuati on abnormality of the liver or spleen. Gallbladder surgically absent. Pancreas is somewhat atrophic. Kidneys unremarkable. No stone or hydronephrosis. Fatty mass at the right adrenal gland measuring 2.2 cm consistent with myelolipoma. Unopacified GI tract normal in caliber and contour. No focal bowel wall thickening. No inflammatory s tranding in the mesentery. The appendix is normal in caliber. No ascites or lymphadenopathy. Abdomina l aorta normal in caliber. Images of pelvis show nondistended urinary bladder. Coats catheter in place. Uterus is surgically abs ent. No free fluid or pelvic lymphadenopathy. Bone windows show no acute findings. Multilevel spondylosis. There is partial fusion of the thoracolu mbar spine. A large radiolucent lesion of the proximal right femur is incompletely included on the st udy but measures up to 6.5 cm in size, new from the 2019 exam. There is defect within the anterior an d posterior cortex consistent with pathologic fracture. IMPRESSION: 1. No acute abnormality of abdomen or pelvis. Normal appendix. 2. Left basilar consolidation with hilar and mediastinal lymphadenopathy in moderate size right pleur al effusion. This could be related atelectasis or pneumonia. Neoplastic processes not excluded. Corre late clinically. 3. There is a large lytic lesion at the proximal right femur, new from the 2019 exam, also indetermin ate. This could be related to metastatic disease. There is a suspected pathologic fracture. 4. Right adrenal myelolipoma Electronically signed by: Kashif Mcneal MD (07/26/2021 11:29 AM) [id number]
--- NOTE | 2021-07-26 11:44 | EKG ---
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
[2021-07-26 12:03] LABS: BASO % 0 % (0-3); EOS % 0 % (0-3); HEMATOCRIT 30.1 % (36.0-47.0); HEMOGLOBIN 9.4 g/dL (12.0-15.5); LYMPH # 0.7 x10^3/uL (1.0-4.8); LYMPH % 6 % (24-48); MEAN CORPUSCULAR HEMOGLOBIN 25 pg (25-35); MEAN CORPUSCULAR HGB CONC 31 g/dL (31-37); MEAN CORPUSCULAR VOLUME 79 fL (79-100); MONO # 0.7 x10^3/uL (0.0-1.1); MONO % 5 % (0-9); NEUT # 11.4 x10^3/uL (1.8-7.7); NEUT % 89 % (31-73); PLATELET COUNT 315 x10^3/uL (140-400); RED BLOOD COUNT 3.79 x10^6/uL (3.50-5.40); RED CELL DISTRIBUTION WIDTH 17.8 % (11.5-14.5); WHITE BLOOD COUNT 12.9 x10^3/uL (4.0-11.0)
[2021-07-26 12:13] LABS: CALCIUM 8.8 mg/dL (8.5-10.1); CREATININE 1.1 mg/dL (0.6-1.0); POTASSIUM 3.8 mmol/L (3.5-5.1)
[2021-07-26 12:18] LABS: ALBUMIN 2.2 g/dL (3.4-5.0); ALBUMIN/GLOBULIN RATIO 0.4 (1.0-1.7); MAGNESIUM 1.6 mg/dL (1.8-2.4); TOTAL BILIRUBIN 0.9 mg/dL (0.2-1.0); TOTAL PROTEIN 7.5 g/dL (6.4-8.2)
--- NOTE | 2021-07-26 13:03 | EKG ---
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 LEFTWARD AXIS CONSIDER LEFT VENTRICULAR HYPERTROPHY ST ABNORMALITY, POSSIBLE LATERAL SUBENDOCARDIAL INJURY Electronically Signed On 07-28-2021 16:14:20 MUSEUM DIRECTOR by Sae Simpson
[2021-07-26 13:19] LABS: BILIRUBIN,URINE SMALL (NEG); CLARITY,URINE CLEAR; COLOR,URINE YELLOW; NITRITE,URINE NEGATIVE (NEG); PROTEIN,URINE 100 mg/dL (NEG-TRACE); UROBILINOGEN,URINE 0.2 mg/dL (0.2 mg/dL)
[2021-07-26 13:26] LABS: YEAST,URINE PRESENT /HPF
[2021-07-26 13:27] LABS: BACTERIA,URINE FEW /HPF (0-FEW); RBC,URINE 0 /HPF (0-2)
--- NOTE | 2021-07-26 14:00 | PDOC2 ---
SAUL MONTOYA MAIL TRUCK DRIVER 07/26/21 1400: CARDIAC CONSULT DATE OF CONSULT Date of Consult DATE: 07/26/21 TIME: 13:27 REASON FOR CONSULT Reason for Consult: New onset AFIB RVR REFERRING PHYSICIAN Referring Physician: Shanta SOURCE Source: Chart review, Patient HISTORY OF PRESENT ILLNESS HISTORY OF PRESENT ILLNESS This is a 76 yo female admitted for complains of palpitations and SOA. Also reports of SANTANA and nausea and vomiting. She also has been having diarrhea and was noted with covid-19 4 weeks ago. Upon admission she was then noted with AFIB RVR which is new. She has been having symptoms nausea and vomiting and also watery greenish stools. NO fever or chills. Reports throbbing SANTANA at the top of her head without visual/auditory disturbances. Denies any chest pain. Not SOA currently. No prior hx of AFIB. Reports that her RUL mass was not cancerous and just abscess and being treated with steroids and antibiotics at [facility]. She is suppose to follow up with Dr. Leslie and suppose to have chest CT to reevaluate her chest lesion. PAST MEDICAL HISTORY Past Medical History Cardiovascular: HTN, Hyperlipidemia CENTRAL NERVOUS SYSTEM: Other (No pertinent history) Pulmonary: RUL mass, COPD GI: No pertinent hx Heme/Onc: Other (DVT unprovoked with eliquis use) Hepatobiliary: No pertinent hx Psych: No pertinent hx Musculoskeletal: Osteoarthritis Rheumatologic: No pertinent hx Infectious disease: Covid-19 ENT: No pertinent hx Renal/: No pertinent hx Endocrine: Diabetes (2), Hypothyroidism Dermatology: No pertinent hx PAST SURGICAL HISTORY Past Surgical History Cholecystectomy, Hysterectomy FAMILY HISTORY Family History Heart Disease (sister) SOCIAL HISTORY Social History Smoke: No ALCOHOL: none Drugs: None Lives: Alone CURRENT MEDICATIONS CURRENT MEDICATIONS Current Medications Medications (Trade) Dose Ordered Sig/Matt Route PRN Reason Start Time Stop Time Status Last Admin Dose Admin Ondansetron HCl (Zofran) 4 mg 1X ONCE IVP 07/26/21 11:00 07/26/21 11:01 DC 07/26/21 12:37 Diltiazem HCl (Cardizem Iv Push) 10 mg 1X ONCE IVP 07/26/21 12:15 07/26/21 12:16 DC 07/26/21 12:54 Diltiazem HCl 125 mg/Sodium Chloride 125 ml @ 5 mls/hr 1X ONCE IV 07/26/21 12:15 07/27/21 13:14 07/26/21 12:55 ALLERGIES ALLERGIES: Coded Allergies: Sulfa (Sulfonamide Antibiotics) (Unverified Allergy, Intermediate, HIVES, 06/15/21) ROS Review of System 14 point ROS evaluated with pertinent positives noted per HPI PHYSICAL EXAM General: Alert, Oriented X3, Cooperative, No acute distress HEENT: Atraumatic, Mucous membr. moist/pink Lungs: Other (diminished bases) Heart: Regular rate (SR), Normal S1, Normal S2, Other (distant heart sounds) Abdomen: Soft, No tenderness Extremities: No cyanosis, Other (1+ bilateral LE pitting edema) Skin: No breakdown, No significant lesion Neuro: Normal speech, Sensation intact Psych/Mental Status: Mood NL MUSCULOSKELETAL: Osteoarthritic changes both hands VITALS/I&O VITALS/I&O: Vital Signs Date Time Temp Pulse Resp B/P (MAP) Pulse Ox O2 Delivery O2 Flow Rate FiO2 07/26/21 12:54 171 159/70 07/26/21 12:00 28 96 Room Air LABS Lab: Laboratory Tests Test 07/26/21 11:30 07/26/21 11:45 07/26/21 13:05 White Blood Count 12.9 x10^3/uL (4.0-11.0) H Red Blood Count 3.79 x10^6/uL (3.50-5.40) Hemoglobin 9.4 g/dL (12.0-15.5) L Hematocrit 30.1 % (36.0-47.0) L Mean Corpuscular Volume 79 fL (79-100) Mean Corpuscular Hemoglobin 25 pg (25-35) Mean Corpuscular Hemoglobin Concent 31 g/dL (31-37) Red Cell Distribution Width 17.8 % (11.5-14.5) H Platelet Count 315 x10^3/uL (140-400) Neutrophils (%) (Auto) 89 % (31-73) H Lymphocytes (%) (Auto) 6 % (24-48) L Monocytes (%) (Auto) 5 % (0-9) Eosinophils (%) (Auto) 0 % (0-3) Basophils (%) (Auto) 0 % (0-3) Neutrophils # (Auto) 11.4 x10^3/uL (1.8-7.7) H Lymphocytes # (Auto) 0.7 x10^3/uL (1.0-4.8) L Monocytes # (Auto) 0.7 x10^3/uL (0.0-1.1) Eosinophils # (Auto) 0.0 x10^3/uL (0.0-0.7) Basophils # (Auto) 0.0 x10^3/uL (0.0-0.2) Sodium Level 134 mmol/L (136-145) L Potassium Level 3.8 mmol/L (3.5-5.1) Chloride Level 96 mmol/L (98-107) L Carbon Dioxide Level 24 mmol/L (21-32) Anion Gap 14 (6-14) Blood Urea Nitrogen 22 mg/dL (7-20) H Creatinine 1.1 mg/dL (0.6-1.0) H Estimated GFR (Cockcroft-Gault) 48.0 BUN/Creatinine Ratio 20 (6-20) Glucose Level 164 mg/dL (70-99) H Calcium Level 8.8 mg/dL (8.5-10.1) Magnesium Level 1.6 mg/dL (1.8-2.4) L Total Bilirubin 0.9 mg/dL (0.2-1.0) Aspartate Amino Transferase (AST) 25 U/L (15-37) Alanine Aminotransferase (ALT) 17 U/L (14-59) Alkaline Phosphatase 71 U/L (46-116) Troponin I High Sensitivity 60 ng/L (4-50) H RJ-Hkz-G-Type Natriuretic Peptide 2012 pg/mL (0-449) H Total Protein 7.5 g/dL (6.4-8.2) Albumin 2.2 g/dL (3.4-5.0) L Albumin/Globulin Ratio 0.4 (1.0-1.7) L Lipase 101 U/L (73-393) Lactic Acid Level 1.4 mmol/L (0.4-2.0) Urine Collection Type Unknown Urine Color Yellow Urine Clarity Clear Urine pH 5.0 (<5.0-8.0) Urine Specific [place] 1.025 (1.000-1.030) Urine Protein 100 mg/dL (NEG-TRACE) Urine Glucose (UA) Negative mg/dL (NEG) Urine Ketones (Stick) 40 mg/dL (NEG) Urine Blood Negative (NEG) Urine Nitrite Negative (NEG) Urine Bilirubin Small (NEG) Urine Urobilinogen Dipstick 0.2 mg/dL (0.2 mg/dL) Urine Leukocyte Esterase Small (NEG) Urine RBC 0 /HPF (0-2) Urine WBC 11-20 /HPF (0-4) Urine Squamous Epithelial Cells Few /LPF Urine Bacteria Few /HPF (0-FEW) Urine Yeast Present /HPF Laboratory Tests 07/26/21 11:30 Laboratory Tests 07/26/21 11:30 ECHOCARDIOGRAM ECHOCARDIOGRAM <Conclusion> The left ventricular systolic function is normal. The Ejection Fraction is 55-60%. There is normal LV segmental wall motion. Transmitral Doppler flow pattern is Grade I-abnormal relaxation pattern. Trace to mild aortic regurgitation. Mild mitral regurgitation. There is no evidence of significant pericardial effusion. DATE: 10/21/18 1402 ASSESSMENT/PLAN ASSESSMENT/PLAN 1. AFIB RVR: back to SR with cardizem drip. Could have been precipitated by n/v/d with possibly still underlying right pulmonary artery compression 2. Recent covid-19: noted 4 weeks ago 3. HTN urgency: now controlled 4. DM2: per PCP 5. HLP 6. Morbid obesity 7. Hx of DVT 8. Acute on chronic diastolic CHF: now compensated 9. Metastasis?: large lytic lesion at the proximal right femur with possible pathological fracture, right adrenal myelolipoma per CT. defer to PCP 10. Diarrhea/vomiting 11. Hx of RUL lesion: could not ascertain full result of pathology. reported to be large abscess being treated with antibiotics and steroids Recommendations 1. Transition cardizem to PO 2. Continue eliquis for hx of DVT and stroke prevention 3. MCOT, TTE 4. Consult pulmonary, suppose to have CT chest tomorrow and pulmonary follow up. 5. Replace Mg RUSTY WALLS MD 07/27/21 2221: CARDIAC CONSULT ASSESSMENT/PLAN ASSESSMENT/PLAN Late entry for 07/26/21 Pt. seen and examined. Agree with above DEBUG TECHNICIAN note. Supportive care. SAUL MONTOYA APRN Jul 26, 2021 14:00 RUSTY WALLS MD Jul 27, 2021 22:21
[2021-07-26] MEDS ORDERED: MAGNESIUM SULFATE 2GM 50 ML IV ONE (14:30)
[2021-07-26 15:05] VITALS: BP 135/45
[2021-07-26] MEDS ORDERED: ACET325T21 PO (15:35)
[2021-07-26] MEDS ORDERED: CALC-31 PO (15:35)
[2021-07-26] MEDS ORDERED: OMEP20CA16 PO (15:35)
[2021-07-26] MEDS ORDERED: ONDA4TAB12 PO (15:35)
[2021-07-26] MEDS ORDERED: AMOX1TAB61 PO (15:35)
[2021-07-26] MEDS ORDERED: INSU100V13 SQ (15:35)
[2021-07-26] MEDS ORDERED: BUME1TAB3 PO (15:35)
--- NOTE | 2021-07-26 17:08 | PDOC1 ---
History and Physical Date of Admission Date of Admission DATE: 07/26/21 TIME: 17:08 Source Source: Chart review, Patient History of Present Illness History of Present Illness Ms. Marte is a 76 year old female admit with CHF from the ER. Sent from her snf with nauase and palpitations. she felt markedly better a day before. Today, she also had one episode of vomiting, with shortness of breath and a headache. She had COVID about 4 weeks ago and has had some ongoing symptoms like diarrhea. . Patient rateed her pain in the ER, a 7 out of 10. no almost none Past Medical History Cardiovascular: HTN, Hyperlipidemia CENTRAL NERVOUS SYSTEM: Other GI: No pertinent hx Heme/Onc: Other Hepatobiliary: No pertinent hx Psych: No pertinent hx Musculoskeletal: Osteoarthritis Rheumatologic: No pertinent hx Infectious disease: No pertinent hx Renal/: No pertinent hx Endocrine: Diabetes, Hypothyroidism Past Surgical History Past Surgical History: Cholecystectomy, Hysterectomy Family History Family History: Heart Disease Social History Smoke: No ALCOHOL: none Drugs: None Current Problem List Problem List Problems Medical Problems: (1) Abnormal CT of the abdomen Status: Acute (2) New onset a-fib Status: Acute Current Medications Current Medications Current Medications Ondansetron HCl (Zofran) 4 mg 1X ONCE IVP Last administered on 07/26/21at 12:37; Start 07/26/21 at 11:00; Stop 07/26/21 at 11:01; Status DC Diltiazem HCl (Cardizem Iv Push) 10 mg 1X ONCE IVP Last administered on 07/26/21at 12:54; Start 07/26/21 at 12:15; Stop 07/26/21 at 12:16; Status DC Diltiazem HCl 125 mg/Sodium Chloride 125 ml @ 5 mls/hr 1X ONCE IV Last administered on 07/26/21at 12:55; Start 07/26/21 at 12:15; Stop 07/27/21 at 13:14 Magnesium Sulfate 50 ml @ 25 mls/hr 1X ONCE IV ; Start 07/26/21 at 14:30; Stop 07/26/21 at 16:29; Status DC Isosorbide Mononitrate (Imdur) 30 mg DAILY PO ; Start 07/27/21 at 09:00 Diltiazem HCl (Cardizem 24hr Cd) 180 mg DAILY PO ; Start 07/27/21 at 09:00 Apixaban (Eliquis) 5 mg BID PO ; Start 07/26/21 at 21:00 Diltiazem HCl (Cardizem 24hr Cd) 180 mg 1X ONCE PO ; Start 07/26/21 at 15:30; Stop 07/26/21 at 15:31; Status DC Active Scripts Active Duoneb 0.5-3(2.5) Mg/3 Ml (Albuterol/Ipratropium) 3 Ml Ampul.neb 3 Ml NEB RTQID 30 Days Klor-Con 10 (Potassium Chloride) 10 Meq Tablet.er 10 Meq PO DAILYWBKFT 30 Days Reported Ondansetron Odt (Ondansetron) 4 Mg Tab.rapdis 4 Mg PO BID PRN Omeprazole 20 Mg Capsule.dr 1 Cap PO DAILY Levemir (Insulin Detemir) 100 Unit/1 Ml Vial 15 Unit SQ HS Calcium 500 + D Tablet (Calcium Carbonate/Vitamin D3) 1 Each Tablet 1 Tab PO DAILY 30 Days Bumetanide 1 Mg Tablet 1 Tab PO BID Augmentin 875-125 Tablet (Amoxicillin/Potassium Clav) 1 Each Tablet 1 Tab PO BID 10 Days Acetaminophen 325 Mg Tablet 2 Tab PO Q4-6HRS PRN 30 Days Losartan Potassium 100 Mg Tablet 100 Mg PO DAILY Trulicity (Dulaglutide) 0.75 Mg/0.5 Ml Pen.injctr 0.75 Mg SQ WEEKLY Levothyroxine Sodium 125 Mcg Tablet 1 Tab PO DAILY Isosorbide Mononitrate Er (Isosorbide Mononitrate) 30 Mg Tab.er.24h 1 Tab PO DAILY Hydralazine Hcl 50 Mg Tablet 1 Tab PO DAILY Humalog (Insulin Lispro) 100 Unit/1 Ml Insuln.pen 15 Unit SQ TIDBFRMEAL Eliquis (Apixaban) 5 Mg Tablet 5 Mg PO BID Atorvastatin Calcium 10 Mg Tablet 1 Tab PO DAILY Metformin Hcl 1,000 Mg Tablet 1 Tab PO BID Allergies Allergies: Coded Allergies: Sulfa (Sulfonamide Antibiotics) (Unverified Allergy, Intermediate, HIVES, 06/15/21) ROS General: YES: Fatigue, Malaise; No: Chills, Night Sweats, Appetite, Other PSYCHOLOGICAL ROS: YES: Sleep disturbances Eyes: No Blurry vision, No Decreased vision, No Double vision, No Dry eyes, No Excessive tearing, No Eye Pain, No Itchy Eyes, No Loss of vision, No Photophobia, No Scotomata, No Uses contacts, No Uses glasses, No Other HEENT: No: Heacaches, Visual Changes, Hearing change, Nasal congestion, Nasal discharge, Oral lesions, Sinus pain, Sore Throat, Epistaxis, Sneezing, Snoring, Tinnitus, Vertigo, Vocal changes, Other ALLERGY AND IMMUNOLOGY: No: Hives, Insect Bite Sensitivity, Itchy/Watery Eyes, Nasal Congestion, Post Nasal Drip, Seasonal Allergies, Other Breast: No New/Changing Breast Lumps, No Nipple changes, No Nipple discharge, No Other Respiratory: No: Cough, Hemoptysis, Orthopnea, Pleuritic Pain, Shortness of breath, SOB with excertion, Sputum Changes, Stridor, Tachypnea, Wheezing, Other Cardiovascular: yes Palpitations; No Chest Pain, No Orthopnea, No Paroxysmal Noc. Dyspnea, No Edema, No Lt Headedness, No Other Gastrointestinal: Yes Nausea, Yes Abdominal Pain Genitourinary: No Dysuria, No Frequency, No Incontinence, No Hematuria, No Retention, No Discharge, No Urgency, No Pain, No Flank Pain, No Other, No , No , No , No , No , No , No Musculoskeletal: Yes Joint Pain, Yes Joint Stiffness; No Gait Disturbance, No Joint Swelling, No Muscle Pain, No Muscular Weakness, No Pain In:, No Swelling In:, No Other Neurological: No Behavorial Changes, No Bowel/Bladder ControlChng, No Confusion, No Dizziness, No Gait Disturbance, No Headaches, No Impaired Coord/balance, No Memory Loss, No Numbness/Tingling, No Seizures, No Speech Problems, No Tremors, No Visual Changes, No Weakness, No Other Skin: No Dry Skin, No Eczema, No Hair Changes, No Lumps, No Mole Changes, No Mottling, No Nail Changes, No Pruritus, No Rash, No Skin Lesion Changes, No Other, No Acne Physical Exam General: Alert, Oriented X3, Cooperative, mild distress HEENT: Atraumatic Heart: S1S2, no thrills, irregularly irregular Abdomen: Normal bowel sounds, Soft Extremities: No cyanosis, No edema, Normal pulses Skin: No breakdown Neuro: Normal tone, Sensation intact Psych/Mental Status: Mental status NL, Mood NL Vitals Vitals Vital Signs Date Time Temp Pulse Resp B/P (MAP) Pulse Ox O2 Delivery O2 Flow Rate FiO2 07/26/21 15:05 97.9 87 18 135/45 (75) 94 Room Air 97.9 Labs Labs Laboratory Tests Test 07/26/21 11:30 07/26/21 11:45 07/26/21 13:05 07/26/21 16:33 White Blood Count 12.9 x10^3/uL (4.0-11.0) Red Blood Count 3.79 x10^6/uL (3.50-5.40) Hemoglobin 9.4 g/dL (12.0-15.5) Hematocrit 30.1 % (36.0-47.0) Mean Corpuscular Volume 79 fL (79-100) Mean Corpuscular Hemoglobin 25 pg (25-35) Mean Corpuscular Hemoglobin Concent 31 g/dL (31-37) Red Cell Distribution Width 17.8 % (11.5-14.5) Platelet Count 315 x10^3/uL (140-400) Neutrophils (%) (Auto) 89 % (31-73) Lymphocytes (%) (Auto) 6 % (24-48) Monocytes (%) (Auto) 5 % (0-9) Eosinophils (%) (Auto) 0 % (0-3) Basophils (%) (Auto) 0 % (0-3) Neutrophils # (Auto) 11.4 x10^3/uL (1.8-7.7) Lymphocytes # (Auto) 0.7 x10^3/uL (1.0-4.8) Monocytes # (Auto) 0.7 x10^3/uL (0.0-1.1) Eosinophils # (Auto) 0.0 x10^3/uL (0.0-0.7) Basophils # (Auto) 0.0 x10^3/uL (0.0-0.2) Sodium Level 134 mmol/L (136-145) Potassium Level 3.8 mmol/L (3.5-5.1) Chloride Level 96 mmol/L (98-107) Carbon Dioxide Level 24 mmol/L (21-32) Anion Gap 14 (6-14) Blood Urea Nitrogen 22 mg/dL (7-20) Creatinine 1.1 mg/dL (0.6-1.0) Estimated GFR (Cockcroft-Gault) 48.0 BUN/Creatinine Ratio 20 (6-20) Glucose Level 164 mg/dL (70-99) Calcium Level 8.8 mg/dL (8.5-10.1) Magnesium Level 1.6 mg/dL (1.8-2.4) Total Bilirubin 0.9 mg/dL (0.2-1.0) Aspartate Amino Transf (AST/SGOT) 25 U/L (15-37) Alanine Aminotransferase (ALT/SGPT) 17 U/L (14-59) Alkaline Phosphatase 71 U/L (46-116) Troponin I High Sensitivity 60 ng/L (4-50) WG-Nni-Q-Type Natriuretic Peptide 2012 pg/mL (0-449) Total Protein 7.5 g/dL (6.4-8.2) Albumin 2.2 g/dL (3.4-5.0) Albumin/Globulin Ratio 0.4 (1.0-1.7) Lipase 101 U/L (73-393) Thyroid Stimulating Hormone (TSH) 3.298 uIU/mL (0.358-3.74) Lactic Acid Level 1.4 mmol/L (0.4-2.0) Urine Collection Type Unknown Urine Color Yellow Urine Clarity Clear Urine pH 5.0 (<5.0-8.0) Urine Specific [place] 1.025 (1.000-1.030) Urine Protein 100 mg/dL (NEG-TRACE) Urine Glucose (UA) Negative mg/dL (NEG) Urine Ketones (Stick) 40 mg/dL (NEG) Urine Blood Negative (NEG) Urine Nitrite Negative (NEG) Urine Bilirubin Small (NEG) Urine Urobilinogen Dipstick 0.2 mg/dL (0.2 mg/dL) Urine Leukocyte Esterase Small (NEG) Urine RBC 0 /HPF (0-2) Urine WBC 11-20 /HPF (0-4) Urine Squamous Epithelial Cells Few /LPF Urine Bacteria Few /HPF (0-FEW) Urine Yeast Present /HPF Glucose (Fingerstick) 160 mg/dL (70-99) Laboratory Tests Test 07/26/21 11:30 07/26/21 11:45 07/26/21 13:05 07/26/21 16:33 White Blood Count 12.9 x10^3/uL (4.0-11.0) Red Blood Count 3.79 x10^6/uL (3.50-5.40) Hemoglobin 9.4 g/dL (12.0-15.5) Hematocrit 30.1 % (36.0-47.0) Mean Corpuscular Volume 79 fL (79-100) Mean Corpuscular Hemoglobin 25 pg (25-35) Mean Corpuscular Hemoglobin Concent 31 g/dL (31-37) Red Cell Distribution Width 17.8 % (11.5-14.5) Platelet Count 315 x10^3/uL (140-400) Neutrophils (%) (Auto) 89 % (31-73) Lymphocytes (%) (Auto) 6 % (24-48) Monocytes (%) (Auto) 5 % (0-9) Eosinophils (%) (Auto) 0 % (0-3) Basophils (%) (Auto) 0 % (0-3) Neutrophils # (Auto) 11.4 x10^3/uL (1.8-7.7) Lymphocytes # (Auto) 0.7 x10^3/uL (1.0-4.8) Monocytes # (Auto) 0.7 x10^3/uL (0.0-1.1) Eosinophils # (Auto) 0.0 x10^3/uL (0.0-0.7) Basophils # (Auto) 0.0 x10^3/uL (0.0-0.2) Sodium Level 134 mmol/L (136-145) Potassium Level 3.8 mmol/L (3.5-5.1) Chloride Level 96 mmol/L (98-107) Carbon Dioxide Level 24 mmol/L (21-32) Anion Gap 14 (6-14) Blood Urea Nitrogen 22 mg/dL (7-20) Creatinine 1.1 mg/dL (0.6-1.0) Estimated GFR (Cockcroft-Gault) 48.0 BUN/Creatinine Ratio 20 (6-20) Glucose Level 164 mg/dL (70-99) Calcium Level 8.8 mg/dL (8.5-10.1) Magnesium Level 1.6 mg/dL (1.8-2.4) Total Bilirubin 0.9 mg/dL (0.2-1.0) Aspartate Amino Transf (AST/SGOT) 25 U/L (15-37) Alanine Aminotransferase (ALT/SGPT) 17 U/L (14-59) Alkaline Phosphatase 71 U/L (46-116) Troponin I High Sensitivity 60 ng/L (4-50) HU-Siv-E-Type Natriuretic Peptide 2012 pg/mL (0-449) Total Protein 7.5 g/dL (6.4-8.2) Albumin 2.2 g/dL (3.4-5.0) Albumin/Globulin Ratio 0.4 (1.0-1.7) Lipase 101 U/L (73-393) Thyroid Stimulating Hormone (TSH) 3.298 uIU/mL (0.358-3.74) Lactic Acid Level 1.4 mmol/L (0.4-2.0) Urine Collection Type Unknown Urine Color Yellow Urine Clarity Clear Urine pH 5.0 (<5.0-8.0) Urine Specific [place] 1.025 (1.000-1.030) Urine Protein 100 mg/dL (NEG-TRACE) Urine Glucose (UA) Negative mg/dL (NEG) Urine Ketones (Stick) 40 mg/dL (NEG) Urine Blood Negative (NEG) Urine Nitrite Negative (NEG) Urine Bilirubin Small (NEG) Urine Urobilinogen Dipstick 0.2 mg/dL (0.2 mg/dL) Urine Leukocyte Esterase Small (NEG) Urine RBC 0 /HPF (0-2) Urine WBC 11-20 /HPF (0-4) Urine Squamous Epithelial Cells Few /LPF Urine Bacteria Few /HPF (0-FEW) Urine Yeast Present /HPF Glucose (Fingerstick) 160 mg/dL (70-99) VTE Prophylaxis Ordered VTE Prophylaxis Devices: Yes VTE Pharmacological Prophylaxi: Yes Assessment/Plan Assessment/Plan nausea and vomiting atrial fibrillation with RVR acute on chronic diastolic CHF cardizem gtt started in ER, now rate control, sinus at times, still fib, symptoms much imrpoved obese, BMI 35 htn lipids CHF, chronic diastolic, on lasix at baseline Justifications for Admission Other Justification CHRISTOPH ARGUETA MD Jul 26, 2021 17:08
[2021-07-26] MEDS ORDERED: ONDANSETRON ODT 4 MG TAB.RAPDIS. PO PRN (18:00)
[2021-07-26] MEDS: INSULIN LISPRO 300 UNITS/3 ML VIAL. SQ SCH (18:11)
--- NOTE | 2021-07-26 18:12 | NUR ---
patient states that she doesnt feel like eating dinner and her blood glucose is only 160 15 units of insulin are being held
[2021-07-26] MEDS: BUMETANIDE 1 MG TABLET. PO SCH (18:17)
[2021-07-26] MEDS: APIXABAN 5 MG TABLET. PO SCH (18:57)
[2021-07-26 19:00] VITALS: BP 135/66
--- NOTE | 2021-07-26 19:05 | NUR ---
Pt in bed assessment completed vss poc explained pt denied pain pt forgetful pt reoriented to surroundings call light in reach will resume care. bed alarm set.
[2021-07-26] MEDS: INSULIN GLARGINE SYRINGE. SQ SCH (20:51)
[2021-07-26] MEDS: IPRATRPIUM/ALBUTEROL 0.5/2.5MG 3 ML NEBU. NEB SCH (21:15)
[2021-07-26 22:15] VITALS: BP 135/44
[2021-07-27 02:00] VITALS: BP 134/63
[2021-07-27] MEDS: LEVOTHYROXINE 125 MCG TABLET PO SCH (05:42)
[2021-07-27] MEDS: IPRATRPIUM/ALBUTEROL 0.5/2.5MG 3 ML NEBU. NEB SCH ×4 (06:20→18:02)
[2021-07-27 07:00] VITALS: BP 153/54
[2021-07-27] MEDS: INSULIN LISPRO 300 UNITS/3 ML VIAL. SQ SCH ×3 (07:30→16:30)
[2021-07-27] MEDS: APIXABAN 5 MG TABLET. PO SCH ×2 (08:27→20:24)
--- NOTE | 2021-07-27 08:50 | NUR ---
Wound Care Wound Type/Assessment: Pt seen for wound care consultation re: coccyx wound, see wound assessment. Pt assessed, bilateral buttocks and coccyx areas reddened, peeling, with 3 open ulcerations consistent with Stage III pressure ulcers d/t location and slough presence. Wound beds with yellow slough, dusky red base, periwounds bright red and peeling, consistent with incontinence associated skin damage. No other wounds noted on full skin inspection. Treatment Recommendations/Plan: Clean lex and coccyx areas with soap and water, apply Calazime cream and leave [employer] d/t stool incontinence. Left and right turns only, except when eating, to reduce pressure to areas. Education provided: to pt re: frequent repositioning d/t coccyx wounds, pt v/u. Offloading surface/device: offloading wedge and pillows to reposition Recommended Referrals/Tests: n/a Discharge Recommendations for dressings: see treatment plan above.
[2021-07-27] MEDS: ISOSORBIDE MONONITRATE ER 30 MG TAB.ER.24H PO SCH ×2 (09:43→14:07)
[2021-07-27] MEDS: ATORVASTATIN CALCIUM 10 MG TABLET. PO SCH ×2 (09:43→14:08)
[2021-07-27] MEDS: BUMETANIDE 1 MG TABLET. PO SCH ×3 (09:44→16:00)
[2021-07-27] MEDS: POTASSIUM CHLORIDE 10 MEQ TABLET.ER. PO SCH ×2 (09:44→14:08)
[2021-07-27] MEDS: LOSARTAN POTASSIUM 50 MG TABLET. PO SCH ×2 (09:45→14:08)
[2021-07-27 11:00] VITALS: BP 140/68
--- NOTE | 2021-07-27 11:08 | CONS ---
DATE OF CONSULTATION: 07/27/2021 PULMONARY CONSULTATION ATTENDING PHYSICIAN: Dr. Coffey. REASON FOR CONSULTATION: Persistent lung collapse, possible lung cancer. HISTORY OF PRESENT ILLNESS: The 76-year-old female who was seen by us previously during her June hospitalization. At that time, the patient was found to have a 7.6 cm right upper lobe mass with central necrosis. There was narrowing of the right main pulmonary artery. The patient underwent CT-guided biopsy. At that time, fluid was aspirated and it was negative for malignancy. At that time, we sent the patient on Zyvox and Levaquin and treated as a lung abscess. She was supposed to have a followup in the office late this month. She was brought into the hospital with complaint of nausea, some shortness of breath and a headache. She was COVID positive about 4 weeks ago. She had some diarrhea as well. The patient underwent imaging study including CT abdomen and pelvis and it showed evidence of a large suspected lytic lesion in the right femur. She has been complaining of pain in that area for some time. CT head was negative. We did a CT of the chest. It shows persistent collapse of the right upper lobe. It has not been officially read. There is a mild to moderate right sided pleural effusion with associated atelectasis and faint interstitial infiltrates in the left lung. Consultation requested for further evaluation and management. PAST MEDICAL HISTORY: Significant for history of hypertension, hyperlipidemia, underlying obesity, diabetes, hypothyroidism, atrial fibrillation. History of deep venous thrombosis, on Eliquis. PAST SURGICAL HISTORY: Cholecystectomy and hysterectomy. FAMILY HISTORY: Heart disease. SOCIAL HISTORY: Nonsmoker. ALLERGIES: SULFA. MEDICATIONS: Reviewed as listed in the MRAD. Radhaquis is on hold. She is on Cardizem as well. REVIEW OF SYSTEMS: Twelve-point review of system obtained. Pertinent positives discussed in my present illness, otherwise noncontributory. All systems that were negative were reviewed as well. PHYSICAL EXAMINATION: VITAL SIGNS: Reviewed. Pulse ox 97% on room air. Afebrile, blood pressure stable, pulse is in the 70s. NECK: Supple. LUNGS: With diminished breath sounds right lung. CARDIOVASCULAR: With a regular rate. ABDOMEN: Soft, obese. EXTREMITIES: With trace pitting edema. LABORATORY DATA: Reviewed. White cell count 12.9, hemoglobin 9.4 and platelets are 315. BUN is 22 and creatinine 1.1. IMPRESSION: 1. Abnormal CT chest with persistent consolidation in the right upper lobe. She had narrowing of the right main pulmonary artery. She has now a right lower lobe pleural effusion. Last month, she had a CT-guided aspiration biopsy, right upper lobe and liquid material was obtained and it was thought that it was probably a lung abscess. She was supposed to have a followup CT later this month. Malignancy was negative. She now has persistent collapse of the right upper lobe and also has a large lytic lesion in the right femur. Likely suspecting metastatic disease with primary lung cancer. 3. No significant tobacco history. 4. Abnormal CT chest as discussed above. 5. History of deep venous thrombosis and atrial fibrillation. She has been on Eliquis, which is on hold. 6. Atrial fibrillation with rapid ventricular response on admission, now improved. RECOMMENDATIONS: 1. Discussed with the patient at this time, I would recommend getting a bone marrow aspiration to rule out a definite malignancy. 2. At this point, she is asymptomatic and we will monitor her pleural effusion for now. If malignancy is confirmed then she may need a thoracentesis and eventually a PleurX catheter. 3. Follow Cardiology recommendation regarding atrial fibrillation. 4. Eliquis is on hold. 5. Consult Interventional Radiology. 6. Discussed with RN and will follow along with you. Addend:d/w IR. They want to hold Eliquis over weekend and do bone marrow bx Friday SARAH/LORIE RICHARDSON: Kyung TID: [id number] HELIO
--- NOTE | 2021-07-27 12:06 | RAD ---
CT scan of the chest without contrast 07/27/2021 CLINICAL HISTORY: Right lung mass. TECHNIQUE: Unenhanced contiguous, 5 mm axial sections were obtained through the chest and upper abdom en. One or more of the following individualized dose reduction techniques were utilized for this study: 1. Automated exposure control. 2. Adjustment of the mA and/or kV according to patient size. 3. Use of iterative reconstruction technique. FINDINGS: Comparison is made to a portable chest radiograph dated 07/26/2021. Additional comparison is made to a CT scan of the chest dated 06/15/2021. A masslike opacity is seen involving the right upper lobe. This has a low-attenuation center. It is d ifficult to differentiate mass from adjacent atelectasis. This measures 8.2 x 7.9 x 8.9 cm in transve rse, craniocaudal and AP dimensions. It has increased in size since the previous examination where it measured 6.9 x 7.5 x 8.7 cm. This extends to involve the right hilum and mediastinum. Calcified shannon r and mediastinal lymph nodes are again seen which measure 3 mm to 1.2 cm in size. The heart is mildl y enlarged. Atherosclerotic calcification of the thoracic aorta is seen. The thoracic aorta is tortuo us but tapers normally. There is mild cardiomegaly. There is a small to moderate-sized right pleural effusion. Right lower lobe atelectasis and/or infilt rate is noted. These findings have increased since the previous examination. Patchy areas of infiltra te are seen scattered throughout the left lung. No pneumothorax is noted. Images through the upper abdomen demonstrate surgical clips within the gallbladder fossa consistent w ith a cholecystectomy. Atherosclerotic calcification of the abdominal aorta is seen. Calcified granul omas are seen involving the spleen. Degenerative changes are seen throughout the thoracic spine. IMPRESSION: Interval increase in size of the 8.9 cm right upper lobe mass as discussed above. There h as been interval increase in size of the small to moderate-sized right pleural effusion with right lo wer lobe atelectasis. Electronically signed by: Jose Middleton MD (07/27/2021 12:04 PM) [email or web address]
--- NOTE | 2021-07-27 12:29 | PDOC ---
SAUL MONTOYA [employer] RE[employer] 07/27/21 1229: CARDIO Progress Notes Date and Time Date of Service 07/27/2021 Time of Evaluation 1220 Subjective Subjective: No Chest Pain, No shortness of breath, No Palpitations Vitals Vitals Vital Signs Date Time Temp Pulse Resp B/P (MAP) Pulse Ox O2 Delivery O2 Flow Rate FiO2 07/27/21 11:49 96 Room Air 07/27/21 11:00 97.3 85 18 140/68 (92) 97.3 Weight Weight [ ] Input and Output Intake and Output Intake and Output 07/27/21 07:00 Intake Total 137.27 ml Output Total 550 ml Balance -412.73 ml Intake Oral 120 ml IV Total 17.27 ml Output Urine Total 550 ml Laboratory Labs Laboratory Tests Test 07/26/21 13:05 07/26/21 16:33 07/26/21 18:20 07/26/21 19:44 Urine Collection Type Unknown Urine Color Yellow Urine Clarity Clear Urine pH 5.0 (<5.0-8.0) Urine Specific [place] 1.025 (1.000-1.030) Urine Protein 100 mg/dL (NEG-TRACE) Urine Glucose (UA) Negative mg/dL (NEG) Urine Ketones (Stick) 40 mg/dL (NEG) Urine Blood Negative (NEG) Urine Nitrite Negative (NEG) Urine Bilirubin Small (NEG) Urine Urobilinogen Dipstick 0.2 mg/dL (0.2 mg/dL) Urine Leukocyte Esterase Small (NEG) Urine RBC 0 /HPF (0-2) Urine WBC 11-20 /HPF (0-4) Urine Squamous Epithelial Cells Few /LPF Urine Bacteria Few /HPF (0-FEW) Urine Yeast Present /HPF Glucose (Fingerstick) 160 mg/dL (70-99) 154 mg/dL (70-99) Troponin I High Sensitivity 59 ng/L (4-50) Test 07/27/21 07:51 07/27/21 11:44 Glucose (Fingerstick) 138 mg/dL (70-99) 141 mg/dL (70-99) Microbiology Micro Microbiology 07/26/21 Urine Culture - Final, Complete Physical Exam HEENT: Neck Supple W Full Motion Chest: Symmetric LUNGS: Other (diminished) Heart: S1S2, RRR (SR) Abdomen: Soft N/T Extremities: No Calf Tenderness Neurology: alert, oriented, follow commands Assessment Assessment 1. AFIB RVR: Maintaining SR. Could have been precipitated by n/v/d with possibly still underlying right pulmonary artery compression 2. Recent covid-19: noted 4 weeks ago 3. HTN urgency: now controlled 4. DM2: per PCP 5. HLP 6. Morbid obesity 7. Hx of DVT 8. Acute on chronic diastolic CHF: now compensated 9. Metastasis?: large lytic lesion at the proximal right femur with possible pathological fracture, right adrenal myelolipoma per CT. defer to PCP 10. Diarrhea/vomiting: better 11. Hx of RUL lesion: could not ascertain full result of pathology. reported to be large abscess being treated with antibiotics and steroids. increased to 8.9 cm 12. Right pleural effusion: per pulmonary 13. Very mild trop elevation: doubt ACS, suspect type 2 demand mediated Recommendations 1. Continue cardizem 2. Continue eliquis for hx of DVT and stroke prevention 3. MCOT, TTE 4. Supportive care Justicifation of Admission Dx: Justifications for Admission: Justification of Admission Dx: Yes RUSTY WALLS MD 07/27/21 2244: CARDIO Progress Notes Plan Plan The patient was seen and interviewed as well as examined at the bedside. The chart was reviewed. The case was discussed. Agree with the plan of care. Ok to hold eliquis. Await further evaluation. Thanks SAUL MONTOYA APRN Jul 27, 2021 12:29 RUSTY WALLS MD Jul 27, 2021 22:44
[2021-07-27] MEDS: ACETAMINOPHEN 325 MG TABLET. PO PRN (14:20)
--- NOTE | 2021-07-27 14:33 | CARD ---
MR#: [id number] Date of Study: 07/27/2021 Ordering Physician: SAUL MONTOYA, Referring Physician: SAUL MONTOYA Tech: Cara Henson [facility] APPROVED REPORT EXAM: Two-dimensional and M-mode echocardiogram with Doppler and color Doppler. Other Information Quality : Technically LimitedHR: 77bpm Rhythm : Atrial Fibrillation INDICATION Atrial Fibrillation RISK FACTORS Hypertension Obesity Hyperlipidemia Diabetes 2D DIMENSIONS RVDd2.3 (2.9-3.5cm)Left Atrium(2D)3.7 (1.6-4.0cm) IVSd1.4 (0.7-1.1cm)Aortic Root(2D)3.8 (2.0-3.7cm) LVDd3.8 (3.9-5.9cm)LVOT Diameter2.1 (1.8-2.4cm) PWd1.3 (0.7-1.1cm)LVDs2.2 (2.5-4.0cm) FS (%) 43.3 %SV46.5 ml LVEF(%)75.2 (>50%) Aortic Valve AoV Peak Stuart.144.8cm/sAoV VTI29.0cm AO Peak GR.8.4mmHgLVOT Peak Stuart.136.0cm/s AO Mean GR.5mmHgAVA (VMAX)3.35cm2 Mitral Valve MV E Uxwuzouc86.9cm/sMV DECEL QFNE545ti MV A Vmdsaffk09.9cm/sE/A Ratio1.0 Pulmonary Valve PV Peak Jeuewcla134.0cm/s LEFT VENTRICLE The left ventricle is normal size. There is mild concentric left ventricular hypertrophy. The left ve ntricular systolic function is normal. Estimated ejection fraction 65% There is normal LV segmental wall motion. Transmitral Doppler flow pattern is Grade II-pseudonormal filling dynamics. RIGHT VENTRICLE The right ventricle is mildly dilated. There is normal right ventricular wall thickness. The right ve ntricular systolic function is normal. ATRIA The left atrium size is normal. The right atrium size is normal. The interatrial septum is intact wit h no evidence for an atrial septal defect or patent foramen ovale as noted on 2-D or Doppler imaging. AORTIC VALVE The aortic valve is normal in structure and function. Doppler and Color Flow revealed no significant aortic regurgitation. There is no significant aortic valvular stenosis. MITRAL VALVE The mitral valve is normal in structure and function. There is no evidence of mitral valve prolapse. There is no mitral valve stenosis. Doppler and Color-flow revealed mild mitral regurgitation. TRICUSPID VALVE The tricuspid valve is normal in structure and function. Doppler and Color Flow revealed trace tricus pid regurgitation. Estimated PAP 35-40 mmHg. There is no tricuspid valve stenosis. PULMONIC VALVE Doppler and Color Flow revealed no pulmonic valvular regurgitation. GREAT VESSELS The aortic root is mildly enlarged. The ascending aorta is Mildly dilated. Due to poor image quality, the IVC could not be assessed. PERICARDIAL EFFUSION There is no evidence of significant pericardial effusion. Critical Notification Critical Value: No <Conclusion> The left ventricular systolic function is normal. Estimated ejection fraction 65% There is normal LV segmental wall motion. Mild mitral regurgitation. Trace tricuspid regurgitation. Estimated PAP 35-40 mmHg. There is no evidence of significant pericardial effusion. Signed by : Rex Mcarthur, Electronically Approved : 07/27/2021 14:32:56
--- NOTE | 2021-07-27 14:44 | PDOC ---
[employer] PROGRESS NOTE Date of Service DOS: DATE: 07/27/21 TIME: 14:43 Chief Complaint Chief Complaint nausea and vomiting atrial fibrillation with RVR acute on chronic diastolic CHF obese, BMI 35 htn lipids CHF, chronic diastolic, on lasix at baseline RUL lung mass, Augmentin had been started at [facility] last week, and they thought she needed 4 weeks abx History of Present Illness History of Present Illness cardizem gtt started in ER, cont current PT and Ot as able Vitals/I&O Vitals/I&O: Vital Signs Date Time Temp Pulse Resp B/P (MAP) Pulse Ox O2 Delivery O2 Flow Rate FiO2 07/27/21 14:08 85 140/68 07/27/21 11:49 96 Room Air 07/27/21 11:00 97.3 18 97.3 I & O 07/26/21 07/26/21 07/27/21 15:00 23:00 07:00 Intake Total 137.27 ml 0 ml Output Total 550 ml Balance 137.27 ml -550 ml Physical Exam General: Alert, Oriented X3, Cooperative, mild distress Heart: Regular rate (SR), Normal S1, Normal S2, Other (distant heart sounds) Lungs: Other Abdomen: Normal bowel sounds, Soft Extremities: No cyanosis, No edema, Normal pulses Skin: No breakdown Labs Labs: Laboratory Tests Test 07/26/21 16:33 07/26/21 18:20 07/26/21 19:44 07/27/21 07:51 Glucose (Fingerstick) 160 mg/dL (70-99) 154 mg/dL (70-99) 138 mg/dL (70-99) Troponin I High Sensitivity 59 ng/L (4-50) Test 07/27/21 11:44 Glucose (Fingerstick) 141 mg/dL (70-99) Review of Systems Review of Systems: CT pelvis - There is a large lytic lesion at the proximal right femur, new from the 2019 exam, also indeterminate. This could be related to metastatic disease. There is a suspected pathologic fracture. Assessment and Plan Assessmemt and Plan Problems Medical Problems: (1) Abnormal CT of the abdomen Status: Acute (2) New onset a-fib Status: Acute Comment Review of Relevant I have reviewed the following items frank (where applicable) has been applied. Medications: Current Medications Medications (Trade) Dose Ordered Sig/Matt Route PRN Reason Start Time Stop Time Status Last Admin Dose Admin Isosorbide Mononitrate (Imdur) 30 mg DAILY PO 07/27/21 09:00 07/27/21 14:07 Diltiazem HCl (Cardizem 24hr Cd) 180 mg DAILY PO 07/27/21 09:00 07/27/21 09:44 Acetaminophen (Tylenol) 650 mg PRN Q8HRS PRN PO pain or fever 07/26/21 18:00 07/27/21 14:20 Atorvastatin Calcium (Lipitor) 10 mg DAILY PO 07/27/21 09:00 07/27/21 14:08 Bumetanide (Bumex) 1 mg BID94 PO 07/26/21 19:00 07/27/21 14:07 Hydralazine HCl (Apresoline) 50 mg DAILY PO 07/27/21 09:00 07/27/21 14:08 Albuterol/ Ipratropium (Duoneb) 3 ml RTQID NEB 07/26/21 20:00 07/27/21 11:48 Levothyroxine Sodium (Synthroid) 125 mcg DAILY07 PO 07/27/21 07:00 07/27/21 05:42 Potassium Chloride (Klor-Con) 10 meq DAILYWBKFT PO 07/27/21 08:00 07/27/21 14:08 Insulin Glargine (Lantus Syringe) 15 unit QHS SQ 07/26/21 21:00 07/26/21 20:51 Losartan Potassium (Cozaar) 100 mg DAILY PO 07/27/21 09:00 07/27/21 14:08 Justifications for Admission Other Justification CHRISTOPH ARGUETA MD Jul 27, 2021 14:44
[2021-07-27 15:00] VITALS: BP 137/82
[2021-07-27] MEDS ORDERED: PERFLUTREN PROTEIN-A MICROSPHR 0.22 MG/ML 3 ML VIAL. IV ONE (15:00)
[2021-07-27] MEDS: AMOXICILLIN/K CLAV 875/125MG TABLET. PO SCH ×2 (16:00→20:24)
[2021-07-27 19:45] VITALS: BP 102/43
[2021-07-27] MEDS: INSULIN GLARGINE SYRINGE. SQ SCH (20:25)
--- NOTE | 2021-07-27 20:30 | NUR ---
Familia non-administered d/t order to hold for pending biopsy on 07/30.
[2021-07-27 23:40] VITALS: BP 118/48
[2021-07-28] VITALS (7 sets, daily range): BP systolic 105–136; BP diastolic 47–58
[2021-07-28] MEDS: LEVOTHYROXINE 125 MCG TABLET PO SCH (05:17)
[2021-07-28] MEDS: IPRATRPIUM/ALBUTEROL 0.5/2.5MG 3 ML NEBU. NEB SCH ×4 (06:38→18:31)
[2021-07-28] MEDS: INSULIN LISPRO 300 UNITS/3 ML VIAL. SQ SCH ×3 (07:30→17:09)
[2021-07-28] MEDS: APIXABAN 5 MG TABLET. PO SCH ×3 (07:44→21:15)
--- NOTE | 2021-07-28 07:59 | PDOC ---
PULMONARY PROGRESS NOTES DATE: 07/28/21 TIME: 07:58 Subjective feels good today Vitals Vital Signs Date Time Temp Pulse Resp B/P (MAP) Pulse Ox O2 Delivery O2 Flow Rate FiO2 07/28/21 05:00 94 Room Air 07/28/21 03:55 97.7 78 20 105/47 (66) 97.7 ROS: No Nausea General: Alert, No acute distress HEENT: Other (nc at ) Lungs: Other (b lat diminished ) Cardiovascular: S1, S2 Abdomen: Soft Extremities: Other Skin: Warm Labs Laboratory Tests Test 07/26/21 11:30 07/26/21 11:45 07/26/21 13:05 07/26/21 16:33 White Blood Count 12.9 x10^3/uL (4.0-11.0) Red Blood Count 3.79 x10^6/uL (3.50-5.40) Hemoglobin 9.4 g/dL (12.0-15.5) Hematocrit 30.1 % (36.0-47.0) Mean Corpuscular Volume 79 fL (79-100) Mean Corpuscular Hemoglobin 25 pg (25-35) Mean Corpuscular Hemoglobin Concent 31 g/dL (31-37) Red Cell Distribution Width 17.8 % (11.5-14.5) Platelet Count 315 x10^3/uL (140-400) Neutrophils (%) (Auto) 89 % (31-73) Lymphocytes (%) (Auto) 6 % (24-48) Monocytes (%) (Auto) 5 % (0-9) Eosinophils (%) (Auto) 0 % (0-3) Basophils (%) (Auto) 0 % (0-3) Neutrophils # (Auto) 11.4 x10^3/uL (1.8-7.7) Lymphocytes # (Auto) 0.7 x10^3/uL (1.0-4.8) Monocytes # (Auto) 0.7 x10^3/uL (0.0-1.1) Eosinophils # (Auto) 0.0 x10^3/uL (0.0-0.7) Basophils # (Auto) 0.0 x10^3/uL (0.0-0.2) Sodium Level 134 mmol/L (136-145) Potassium Level 3.8 mmol/L (3.5-5.1) Chloride Level 96 mmol/L (98-107) Carbon Dioxide Level 24 mmol/L (21-32) Anion Gap 14 (6-14) Blood Urea Nitrogen 22 mg/dL (7-20) Creatinine 1.1 mg/dL (0.6-1.0) Estimated GFR (Cockcroft-Gault) 48.0 BUN/Creatinine Ratio 20 (6-20) Glucose Level 164 mg/dL (70-99) Calcium Level 8.8 mg/dL (8.5-10.1) Magnesium Level 1.6 mg/dL (1.8-2.4) Total Bilirubin 0.9 mg/dL (0.2-1.0) Aspartate Amino Transf (AST/SGOT) 25 U/L (15-37) Alanine Aminotransferase (ALT/SGPT) 17 U/L (14-59) Alkaline Phosphatase 71 U/L (46-116) Troponin I High Sensitivity 60 ng/L (4-50) WJ-Eyv-C-Type Natriuretic Peptide 2012 pg/mL (0-449) Total Protein 7.5 g/dL (6.4-8.2) Albumin 2.2 g/dL (3.4-5.0) Albumin/Globulin Ratio 0.4 (1.0-1.7) Lipase 101 U/L (73-393) Thyroid Stimulating Hormone (TSH) 3.298 uIU/mL (0.358-3.74) Lactic Acid Level 1.4 mmol/L (0.4-2.0) Urine Collection Type Unknown Urine Color Yellow Urine Clarity Clear Urine pH 5.0 (<5.0-8.0) Urine Specific [place] 1.025 (1.000-1.030) Urine Protein 100 mg/dL (NEG-TRACE) Urine Glucose (UA) Negative mg/dL (NEG) Urine Ketones (Stick) 40 mg/dL (NEG) Urine Blood Negative (NEG) Urine Nitrite Negative (NEG) Urine Bilirubin Small (NEG) Urine Urobilinogen Dipstick 0.2 mg/dL (0.2 mg/dL) Urine Leukocyte Esterase Small (NEG) Urine RBC 0 /HPF (0-2) Urine WBC 11-20 /HPF (0-4) Urine Squamous Epithelial Cells Few /LPF Urine Bacteria Few /HPF (0-FEW) Urine Yeast Present /HPF Glucose (Fingerstick) 160 mg/dL (70-99) Test 07/26/21 18:20 07/26/21 19:44 07/27/21 07:51 07/27/21 11:44 Troponin I High Sensitivity 59 ng/L (4-50) Glucose (Fingerstick) 154 mg/dL (70-99) 138 mg/dL (70-99) 141 mg/dL (70-99) Test 07/27/21 16:47 07/27/21 20:17 Glucose (Fingerstick) 161 mg/dL (70-99) 134 mg/dL (70-99) Laboratory Tests Test 07/27/21 11:44 07/27/21 16:47 07/27/21 20:17 Glucose (Fingerstick) 141 mg/dL (70-99) 161 mg/dL (70-99) 134 mg/dL (70-99) Medications Active Scripts Medications Dose Route/Sig Max Daily Dose Days Date Category Ondansetron Odt (Ondansetron) 4 Mg Tab.rapdis 4 Mg PO BID PRN 07/26/21 Reported Omeprazole 20 Mg Capsule.dr 1 Cap PO DAILY 07/26/21 Reported Levemir (Insulin Detemir) 100 Unit/1 Ml Vial 15 Unit SQ HS 07/26/21 Reported Calcium 500 + D Tablet (Calcium Carbonate/Vitamin D3) 1 Each Tablet 1 Tab PO DAILY 30 07/26/21 Reported Bumetanide 1 Mg Tablet 1 Tab PO BID 07/26/21 Reported Augmentin 875-125 Tablet (Amoxicillin/Potassium Clav) 1 Each Tablet 1 Tab PO BID 10 07/26/21 Reported Acetaminophen 325 Mg Tablet 2 Tab PO Q4-6HRS PRN 30 07/26/21 Reported Duoneb 0.5-3(2.5) Mg/3 Ml (Albuterol/Ipratropium) 3 Ml Ampul.neb 3 Ml NEB RTQID 30 06/21/21 Rx Losartan Potassium 100 Mg Tablet 100 Mg PO DAILY 06/20/21 Reported Trulicity (Dulaglutide) 0.75 Mg/0.5 Ml Pen.injctr 0.75 Mg SQ WEEKLY 06/17/21 Reported Levothyroxine Sodium 125 Mcg Tablet 1 Tab PO DAILY 06/17/21 Reported Isosorbide Mononitrate Er (Isosorbide Mononitrate) 30 Mg Tab.er.24h 1 Tab PO DAILY 06/17/21 Reported Hydralazine Hcl 50 Mg Tablet 1 Tab PO DAILY 06/17/21 Reported Klor-Con 10 (Potassium Chloride) 10 Meq Tablet.er 10 Meq PO DAILYWBKFT 30 10/23/18 Rx Humalog (Insulin Lispro) 100 Unit/1 Ml Insuln.pen 15 Unit SQ TIDBFRMEAL 10/21/18 Reported Eliquis (Apixaban) 5 Mg Tablet 5 Mg PO BID 10/21/18 Reported Atorvastatin Calcium 10 Mg Tablet 1 Tab PO DAILY 10/21/18 Reported Metformin Hcl 1,000 Mg Tablet 1 Tab PO BID 08/13/14 Reported Impression . IMPRESSION: 1. Abnormal CT chest with persistent consolidation in the right upper lobe. She had narrowing of the right main pulmonary artery. She has now a right lower lobe pleural effusion. Last month, she had a CT-guided aspiration biopsy, right upper lobe and liquid material was obtained and it was thought that it was probably a lung abscess. She was supposed to have a followup CT later this month. Malignancy was negative. She now has persistent collapse of the right upper lobe and also has a large lytic lesion in the right femur. Likely suspecting metastatic disease with primary lung cancer. 3. No significant tobacco history. 4. Abnormal CT chest as discussed above. 5. History of deep venous thrombosis and atrial fibrillation. She has been on Eliquis, which is on hold. 6. Atrial fibrillation with rapid ventricular response on admission, now improved. Plan . RECOMMENDATIONS: 1. 02 titration 2. At this point, she is asymptomatic and we will monitor her pleural effusion for now. If malignancy is confirmed then she may need a thoracentesis and eventually a PleurX catheter. 3. Follow Cardiology recommendation regarding atrial fibrillation. 4. Eliquis is on hold. for biopsy on friday 5. Interventional Radiology consulted 6. will follow along with you. DUNIA BHATT MD Jul 28, 2021 07:59
[2021-07-28] MEDS: ATORVASTATIN CALCIUM 10 MG TABLET. PO SCH (09:32)
[2021-07-28] MEDS: POTASSIUM CHLORIDE 10 MEQ TABLET.ER. PO SCH (09:32)
[2021-07-28] MEDS: AMOXICILLIN/K CLAV 875/125MG TABLET. PO SCH ×2 (09:33→21:15)
[2021-07-28] MEDS: ISOSORBIDE MONONITRATE ER 30 MG TAB.ER.24H PO SCH (09:33)
[2021-07-28] MEDS: LOSARTAN POTASSIUM 50 MG TABLET. PO SCH (09:34)
[2021-07-28] MEDS: BUMETANIDE 1 MG TABLET. PO SCH ×2 (09:34→17:08)
--- NOTE | 2021-07-28 13:50 | PDOC ---
[employer] PROGRESS NOTE Date of Service DOS: DATE: 07/28/21 TIME: 13:49 Chief Complaint Chief Complaint nausea and vomiting atrial fibrillation with RVR acute on chronic diastolic CHF obese, BMI 35 htn lipids CHF, chronic diastolic, on lasix at baseline RUL lung mass, Augmentin had been started at [facility] last week, and they thought she needed 4 weeks abx History of Present Illness History of Present Illness HR better still weak needs PT and oT biopsy friday hopefully docs at [facility] says she needed a bronch, maybe they should do that. Vitals/I&O Vitals/I&O: Vital Signs Date Time Temp Pulse Resp B/P (MAP) Pulse Ox O2 Delivery O2 Flow Rate FiO2 07/28/21 11:52 94 Room Air 07/28/21 11:00 97.5 83 18 119/52 (74) 97.5 I & O 07/27/21 07/27/21 07/28/21 15:00 23:00 07:00 Intake Total 0 ml 370 ml Output Total 275 ml 600 ml Balance 0 ml 95 ml -600 ml Physical Exam General: Alert, Oriented X3, Cooperative, mild distress Heart: Regular rate (SR), Normal S1, Normal S2, Other (distant heart sounds) Lungs: Other (b lat diminished ) Abdomen: Normal bowel sounds, Soft Extremities: No cyanosis, No edema, Normal pulses Skin: No breakdown Labs Labs: Laboratory Tests Test 07/27/21 16:47 07/27/21 20:17 07/28/21 08:22 07/28/21 11:20 Glucose (Fingerstick) 161 mg/dL (70-99) 134 mg/dL (70-99) 134 mg/dL (70-99) 126 mg/dL (70-99) Assessment and Plan Assessmemt and Plan Problems Medical Problems: (1) Abnormal CT of the abdomen Status: Acute (2) New onset a-fib Status: Acute Comment Review of Relevant I have reviewed the following items frank (where applicable) has been applied. Medications: Current Medications Medications (Trade) Dose Ordered Sig/Matt Route PRN Reason Start Time Stop Time Status Last Admin Dose Admin Perflutren Protein Type A Microsphe (Optison) 0.66 mg 1X ONCE IV 07/27/21 15:00 07/27/21 15:01 DC 07/27/21 15:01 Amoxicillin/ Clavulanate Potassium (Augmentin 875/ 125mg) 1 tab BID PO 07/27/21 16:00 07/28/21 09:33 Justifications for Admission Other Justification CHRISTOPH ARGUETA MD Jul 28, 2021 13:50
--- NOTE | 2021-07-28 14:33 | PDOC ---
PROGRESS NOTES Date of Service DATE: 07/28/21 TIME: 14:30 Subjective Subjective Patient seen and examined Objective Objective Vital Signs Date Time Temp Pulse Resp B/P (MAP) Pulse Ox O2 Delivery O2 Flow Rate FiO2 07/28/21 11:52 94 Room Air 07/28/21 11:00 97.5 83 18 119/52 (74) 97.5 Intake and Output 07/28/21 07:00 Intake Total 370 ml Output Total 875 ml Balance -505 ml Intake Oral 370 ml Output Urine Total 875 ml Physical Exam Abdomen: Normal bowel sounds Heart: Regular rate General: mild distress Lungs: Other (Decreased breath sounds) Assessment Assessment ToProblems Medical Problems: (1) Abnormal CT of the abdomen Status: Acute (2) New onset a-fib Status: Acute AFIB RVR: In sinus rhythm today. Monitor. We will continue to monitor. Recent covid-19: noted 4 weeks ago HTN urgency: now controlled. Continue present medications. DM2: per PCP HLP Morbid obesity Hx of DVT Acute on chronic diastolic CHF: now compensated Metastasis?: large lytic lesion at the proximal right femur with possible pathological fracture, right adrenal myelolipoma per CT. defer to PCP Hx of RUL lesion: could not ascertain full result of pathology. reported to be large abscess being treated with antibiotics and steroids. increased to 8.9 cm. Being followed by the pulmonary service. Right pleural effusion: per pulmonary Mild trop elevation: doubt ACS, suspect type 2 demand mediated Comment Review of Relevant I have reviewed the following items frank (where applicable) has been applied. Labs Laboratory Tests Test 07/26/21 16:33 07/26/21 18:20 07/26/21 19:44 07/27/21 07:51 Glucose (Fingerstick) 160 mg/dL (70-99) 154 mg/dL (70-99) 138 mg/dL (70-99) Troponin I High Sensitivity 59 ng/L (4-50) Test 07/27/21 11:44 07/27/21 16:47 07/27/21 20:17 07/28/21 08:22 Glucose (Fingerstick) 141 mg/dL (70-99) 161 mg/dL (70-99) 134 mg/dL (70-99) 134 mg/dL (70-99) Test 07/28/21 11:20 Glucose (Fingerstick) 126 mg/dL (70-99) Laboratory Tests Test 07/27/21 16:47 07/27/21 20:17 07/28/21 08:22 07/28/21 11:20 Glucose (Fingerstick) 161 mg/dL (70-99) 134 mg/dL (70-99) 134 mg/dL (70-99) 126 mg/dL (70-99) Microbiology 07/26/21 Blood Culture - Preliminary, Resulted NO GROWTH AFTER 2 DAYS 07/26/21 Urine Culture - Final, Complete Medications Current Medications Ondansetron HCl (Zofran) 4 mg 1X ONCE IVP Last administered on 07/26/21at 12:37; Start 07/26/21 at 11:00; Stop 07/26/21 at 11:01; Status DC Diltiazem HCl (Cardizem Iv Push) 10 mg 1X ONCE IVP Last administered on 07/26/21at 12:54; Start 07/26/21 at 12:15; Stop 07/26/21 at 12:16; Status DC Diltiazem HCl 125 mg/Sodium Chloride 125 ml @ 5 mls/hr 1X ONCE IV Last administered on 07/26/21at 12:55; Start 07/26/21 at 12:15; Stop 07/27/21 at 13:14; Status DC Magnesium Sulfate 50 ml @ 25 mls/hr 1X ONCE IV Last administered on 07/26/21at 14:30; Start 07/26/21 at 14:30; Stop 07/26/21 at 16:29; Status DC Isosorbide Mononitrate (Imdur) 30 mg DAILY PO Last administered on 07/28/21at 09:33; Start 07/27/21 at 09:00 Diltiazem HCl (Cardizem 24hr Cd) 180 mg DAILY PO Last administered on 07/28/21at 09:33; Start 07/27/21 at 09:00 Apixaban (Eliquis) 5 mg BID PO ; Start 07/26/21 at 21:00 Diltiazem HCl (Cardizem 24hr Cd) 180 mg 1X ONCE PO ; Start 07/26/21 at 15:30; Stop 07/26/21 at 15:31; Status DC Acetaminophen (Tylenol) 650 mg PRN Q8HRS PRN PO pain or fever Last administered on 07/27/21 14:20; Start 07/26/21 at 18:00 Atorvastatin Calcium (Lipitor) 10 mg DAILY PO Last administered on 07/28/21 09:32; Start 07/27/21 at 09:00 Bumetanide (Bumex) 1 mg BID94 PO Last administered on 07/28/21 09:34; Start 07/26/21 at 19:00 Hydralazine HCl (Apresoline) 50 mg DAILY PO Last administered on 07/28/21 09:34; Start 07/27/21 at 09:00 Albuterol/ Ipratropium (Duoneb) 3 ml RTQID NEB Last administered on 07/28/21 11:52; Start 07/26/21 at 20:00 Levothyroxine Sodium (Synthroid) 125 mcg DAILY07 PO Last administered on 07/28/21 05:17; Start 07/27/21 at 07:00 Ondansetron HCl (Zofran Odt) 4 mg PRN BID PRN PO NAUSEA/VOMITING; Start 07/26/21 at 18:00 Potassium Chloride (Klor-Con) 10 meq DAILYWBKFT PO Last administered on 07/28/21at 09:32; Start 07/27/21 at 08:00 Insulin Glargine (Lantus Syringe) 15 unit QHS SQ Last administered on 07/27/21at 20:25; Start 07/26/21 at 21:00 Insulin Human Lispro (HumaLOG) 15 units TIDBFRMEAL SQ ; Start 07/26/21 at 18:30 Losartan Potassium (Cozaar) 100 mg DAILY PO Last administered on 07/28/21 09:34; Start 07/27/21 at 09:00 Perflutren Protein Type A Microsphe (Optison) 0.66 mg 1X ONCE IV Last administered on 07/27/21at 15:01; Start 07/27/21 at 15:00; Stop 07/27/21 at 15:01; Status DC Amoxicillin/ Clavulanate Potassium (Augmentin 875/ 125mg) 1 tab BID PO Last administered on 07/28/21at 09:33; Start 07/27/21 at 16:00 Active Scripts Active Duoneb 0.5-3(2.5) Mg/3 Ml (Albuterol/Ipratropium) 3 Ml Ampul.neb 3 Ml NEB RTQID 30 Days Klor-Con 10 (Potassium Chloride) 10 Meq Tablet.er 10 Meq PO DAILYWBKFT 30 Days Reported Ondansetron Odt (Ondansetron) 4 Mg Tab.rapdis 4 Mg PO BID PRN Omeprazole 20 Mg Capsule.dr 1 Cap PO DAILY Levemir (Insulin Detemir) 100 Unit/1 Ml Vial 15 Unit SQ HS Calcium 500 + D Tablet (Calcium Carbonate/Vitamin D3) 1 Each Tablet 1 Tab PO DAILY 30 Days Bumetanide 1 Mg Tablet 1 Tab PO BID Augmentin 875-125 Tablet (Amoxicillin/Potassium Clav) 1 Each Tablet 1 Tab PO BID 10 Days Acetaminophen 325 Mg Tablet 2 Tab PO Q4-6HRS PRN 30 Days Losartan Potassium 100 Mg Tablet 100 Mg PO DAILY Trulicity (Dulaglutide) 0.75 Mg/0.5 Ml Pen.injctr 0.75 Mg SQ WEEKLY Levothyroxine Sodium 125 Mcg Tablet 1 Tab PO DAILY Isosorbide Mononitrate Er (Isosorbide Mononitrate) 30 Mg Tab.er.24h 1 Tab PO DAILY Hydralazine Hcl 50 Mg Tablet 1 Tab PO DAILY Humalog (Insulin Lispro) 100 Unit/1 Ml Insuln.pen 15 Unit SQ TIDBFRMEAL Eliquis (Apixaban) 5 Mg Tablet 5 Mg PO BID Atorvastatin Calcium 10 Mg Tablet 1 Tab PO DAILY Metformin Hcl 1,000 Mg Tablet 1 Tab PO BID Vitals/I & O Vital Sign - Last 24 Hours 07/27/21 07/27/21 07/27/21 07/27/21 15:00 15:11 18:02 19:45 Temp 96.8 97.6 96.8 97.6 Pulse 78 84 Resp 18 20 B/P (MAP) 137/82 (100) 102/43 (62) Pulse Ox 96 93 94 95 O2 Delivery Room Air Room Air Room Air Room Air 07/27/21 07/27/21 07/28/21 07/28/21 20:00 23:40 03:55 05:00 Temp 97.8 97.7 97.8 97.7 Pulse 79 78 Resp 20 20 B/P (MAP) 118/48 (71) 105/47 (66) Pulse Ox 96 95 94 O2 Delivery Room Air Room Air Room Air Room Air 07/28/21 07/28/21 07/28/21 07/28/21 07:00 08:00 09:33 09:33 Temp 97.5 97.5 Pulse 85 78 78 Resp 18 B/P (MAP) 136/48 (77) 136/48 136/48 Pulse Ox 93 O2 Delivery Room Air Room Air 07/28/21 07/28/21 07/28/21 07/28/21 09:34 09:34 11:00 11:52 Temp 97.5 97.5 Pulse 78 78 83 Resp 18 B/P (MAP) 136/48 136/48 119/52 (74) Pulse Ox 94 94 O2 Delivery Room Air Room Air Intake and Output 07/27/21 07/27/21 07/28/21 15:00 23:00 07:00 Intake Total 0 ml 370 ml Output Total 275 ml 600 ml Balance 0 ml 95 ml -600 ml Justifications for Admission Other Justification Nutrition Consultation Dietary Evaluation: Recommendations by RD: Dietary education by RD, Increase Calorie Intake, Protein supplementation Comments: rec ADA/Cardiac diet glucerna tid MVI and vit c per wound protocal Expected Outcomes/Goals: to meet >75% est nutr needs improved wound status Interpretation of weight loss: >5% in 1 month Malnutrition Findings: Food and Nutrition Intake (Sev: <50% est energy req 5days Weight Status: Obese EDWIN TUCKER MD Jul 28, 2021 14:33
[2021-07-28] MEDS: INSULIN GLARGINE SYRINGE. SQ SCH (21:16)
[2021-07-29] MEDS: ACETAMINOPHEN 325 MG TABLET. PO PRN (00:41)
[2021-07-29 03:16] VITALS: BP 135/52
[2021-07-29 04:37] LABS: BASO % 1 % (0-3); EOS # 0.1 x10^3/uL (0.0-0.7); EOS % 2 % (0-3); HEMATOCRIT 25.6 % (36.0-47.0); HEMOGLOBIN 8.2 g/dL (12.0-15.5); LYMPH # 1.1 x10^3/uL (1.0-4.8); LYMPH % 12 % (24-48); MEAN CORPUSCULAR HEMOGLOBIN 25 pg (25-35); MEAN CORPUSCULAR HGB CONC 32 g/dL (31-37); MEAN CORPUSCULAR VOLUME 79 fL (79-100); MONO # 0.6 x10^3/uL (0.0-1.1); MONO % 6 % (0-9); NEUT % 79 % (31-73); PLATELET COUNT 293 x10^3/uL (140-400); RED BLOOD COUNT 3.25 x10^6/uL (3.50-5.40); RED CELL DISTRIBUTION WIDTH 17.5 % (11.5-14.5); WHITE BLOOD COUNT 8.8 x10^3/uL (4.0-11.0)
[2021-07-29 05:36] LABS: ALBUMIN/GLOBULIN RATIO 0.5 (1.0-1.7); CALCIUM 8.3 mg/dL (8.5-10.1); CREATININE 1.1 mg/dL (0.6-1.0); POTASSIUM 3.8 mmol/L (3.5-5.1); TOTAL BILIRUBIN 0.6 mg/dL (0.2-1.0); TOTAL PROTEIN 6.4 g/dL (6.4-8.2)
[2021-07-29] MEDS: LEVOTHYROXINE 125 MCG TABLET PO SCH (06:02)
[2021-07-29] MEDS: IPRATRPIUM/ALBUTEROL 0.5/2.5MG 3 ML NEBU. NEB SCH ×4 (06:11→20:00)
[2021-07-29 07:00] VITALS: BP 140/59
[2021-07-29] MEDS: INSULIN LISPRO 300 UNITS/3 ML VIAL. SQ SCH ×3 (07:30→16:30)
[2021-07-29] MEDS: APIXABAN 5 MG TABLET. PO SCH ×2 (07:36→19:39)
--- NOTE | 2021-07-29 07:54 | PDOC ---
PULMONARY PROGRESS NOTES DATE: 07/29/21 TIME: 07:52 Subjective is tired on RA Vitals Vital Signs Date Time Temp Pulse Resp B/P (MAP) Pulse Ox O2 Delivery O2 Flow Rate FiO2 07/29/21 06:11 94 Room Air 07/29/21 03:16 97.9 80 18 135/52 (79) 97.9 ROS: No Nausea General: Alert, No acute distress HEENT: Other (nc at ) Lungs: Other (b lat diminished ) Cardiovascular: S1, S2 Abdomen: Soft Extremities: Other Skin: Warm Labs Laboratory Tests Test 07/27/21 11:44 07/27/21 16:47 07/27/21 20:17 07/28/21 08:22 Glucose (Fingerstick) 141 mg/dL (70-99) 161 mg/dL (70-99) 134 mg/dL (70-99) 134 mg/dL (70-99) Test 07/28/21 11:20 07/28/21 16:42 07/28/21 21:39 07/29/21 04:00 Glucose (Fingerstick) 126 mg/dL (70-99) 179 mg/dL (70-99) 83 mg/dL (70-99) White Blood Count 8.8 x10^3/uL (4.0-11.0) Red Blood Count 3.25 x10^6/uL (3.50-5.40) Hemoglobin 8.2 g/dL (12.0-15.5) Hematocrit 25.6 % (36.0-47.0) Mean Corpuscular Volume 79 fL (79-100) Mean Corpuscular Hemoglobin 25 pg (25-35) Mean Corpuscular Hemoglobin Concent 32 g/dL (31-37) Red Cell Distribution Width 17.5 % (11.5-14.5) Platelet Count 293 x10^3/uL (140-400) Neutrophils (%) (Auto) 79 % (31-73) Lymphocytes (%) (Auto) 12 % (24-48) Monocytes (%) (Auto) 6 % (0-9) Eosinophils (%) (Auto) 2 % (0-3) Basophils (%) (Auto) 1 % (0-3) Neutrophils # (Auto) 7.0 x10^3/uL (1.8-7.7) Lymphocytes # (Auto) 1.1 x10^3/uL (1.0-4.8) Monocytes # (Auto) 0.6 x10^3/uL (0.0-1.1) Eosinophils # (Auto) 0.1 x10^3/uL (0.0-0.7) Basophils # (Auto) 0.0 x10^3/uL (0.0-0.2) Sodium Level 134 mmol/L (136-145) Potassium Level 3.8 mmol/L (3.5-5.1) Chloride Level 98 mmol/L (98-107) Carbon Dioxide Level 29 mmol/L (21-32) Anion Gap 7 (6-14) Blood Urea Nitrogen 23 mg/dL (7-20) Creatinine 1.1 mg/dL (0.6-1.0) Estimated GFR (Cockcroft-Gault) 48.0 BUN/Creatinine Ratio 21 (6-20) Glucose Level 128 mg/dL (70-99) Calcium Level 8.3 mg/dL (8.5-10.1) Total Bilirubin 0.6 mg/dL (0.2-1.0) Aspartate Amino Transf (AST/SGOT) 26 U/L (15-37) Alanine Aminotransferase (ALT/SGPT) 21 U/L (14-59) Alkaline Phosphatase 67 U/L (46-116) Total Protein 6.4 g/dL (6.4-8.2) Albumin 2.0 g/dL (3.4-5.0) Albumin/Globulin Ratio 0.5 (1.0-1.7) Laboratory Tests Test 07/28/21 08:22 07/28/21 11:20 07/28/21 16:42 07/28/21 21:39 Glucose (Fingerstick) 134 mg/dL (70-99) 126 mg/dL (70-99) 179 mg/dL (70-99) 83 mg/dL (70-99) Test 07/29/21 04:00 White Blood Count 8.8 x10^3/uL (4.0-11.0) Red Blood Count 3.25 x10^6/uL (3.50-5.40) Hemoglobin 8.2 g/dL (12.0-15.5) Hematocrit 25.6 % (36.0-47.0) Mean Corpuscular Volume 79 fL (79-100) Mean Corpuscular Hemoglobin 25 pg (25-35) Mean Corpuscular Hemoglobin Concent 32 g/dL (31-37) Red Cell Distribution Width 17.5 % (11.5-14.5) Platelet Count 293 x10^3/uL (140-400) Neutrophils (%) (Auto) 79 % (31-73) Lymphocytes (%) (Auto) 12 % (24-48) Monocytes (%) (Auto) 6 % (0-9) Eosinophils (%) (Auto) 2 % (0-3) Basophils (%) (Auto) 1 % (0-3) Neutrophils # (Auto) 7.0 x10^3/uL (1.8-7.7) Lymphocytes # (Auto) 1.1 x10^3/uL (1.0-4.8) Monocytes # (Auto) 0.6 x10^3/uL (0.0-1.1) Eosinophils # (Auto) 0.1 x10^3/uL (0.0-0.7) Basophils # (Auto) 0.0 x10^3/uL (0.0-0.2) Sodium Level 134 mmol/L (136-145) Potassium Level 3.8 mmol/L (3.5-5.1) Chloride Level 98 mmol/L (98-107) Carbon Dioxide Level 29 mmol/L (21-32) Anion Gap 7 (6-14) Blood Urea Nitrogen 23 mg/dL (7-20) Creatinine 1.1 mg/dL (0.6-1.0) Estimated GFR (Cockcroft-Gault) 48.0 BUN/Creatinine Ratio 21 (6-20) Glucose Level 128 mg/dL (70-99) Calcium Level 8.3 mg/dL (8.5-10.1) Total Bilirubin 0.6 mg/dL (0.2-1.0) Aspartate Amino Transf (AST/SGOT) 26 U/L (15-37) Alanine Aminotransferase (ALT/SGPT) 21 U/L (14-59) Alkaline Phosphatase 67 U/L (46-116) Total Protein 6.4 g/dL (6.4-8.2) Albumin 2.0 g/dL (3.4-5.0) Albumin/Globulin Ratio 0.5 (1.0-1.7) Medications Active Scripts Medications Dose Route/Sig Max Daily Dose Days Date Category Ondansetron Odt (Ondansetron) 4 Mg Tab.rapdis 4 Mg PO BID PRN 07/26/21 Reported Omeprazole 20 Mg Capsule.dr 1 Cap PO DAILY 07/26/21 Reported Levemir (Insulin Detemir) 100 Unit/1 Ml Vial 15 Unit SQ HS 07/26/21 Reported Calcium 500 + D Tablet (Calcium Carbonate/Vitamin D3) 1 Each Tablet 1 Tab PO DAILY 30 07/26/21 Reported Bumetanide 1 Mg Tablet 1 Tab PO BID 07/26/21 Reported Augmentin 875-125 Tablet (Amoxicillin/Potassium Clav) 1 Each Tablet 1 Tab PO BID 10 07/26/21 Reported Acetaminophen 325 Mg Tablet 2 Tab PO Q4-6HRS PRN 30 07/26/21 Reported Duoneb 0.5-3(2.5) Mg/3 Ml (Albuterol/Ipratropium) 3 Ml Ampul.neb 3 Ml NEB RTQID 30 06/21/21 Rx Losartan Potassium 100 Mg Tablet 100 Mg PO DAILY 06/20/21 Reported Trulicity (Dulaglutide) 0.75 Mg/0.5 Ml Pen.injctr 0.75 Mg SQ WEEKLY 06/17/21 Reported Levothyroxine Sodium 125 Mcg Tablet 1 Tab PO DAILY 06/17/21 Reported Isosorbide Mononitrate Er (Isosorbide Mononitrate) 30 Mg Tab.er.24h 1 Tab PO DAILY 06/17/21 Reported Hydralazine Hcl 50 Mg Tablet 1 Tab PO DAILY 06/17/21 Reported Klor-Con 10 (Potassium Chloride) 10 Meq Tablet.er 10 Meq PO DAILYWBKFT 30 10/23/18 Rx Humalog (Insulin Lispro) 100 Unit/1 Ml Insuln.pen 15 Unit SQ TIDBFRMEAL 10/21/18 Reported Eliquis (Apixaban) 5 Mg Tablet 5 Mg PO BID 10/21/18 Reported Atorvastatin Calcium 10 Mg Tablet 1 Tab PO DAILY 10/21/18 Reported Metformin Hcl 1,000 Mg Tablet 1 Tab PO BID 08/13/14 Reported Impression . IMPRESSION: 1. Abnormal CT chest with persistent consolidation in the right upper lobe. She had narrowing of the right main pulmonary artery. She has now a right lower lobe pleural effusion. Last month, she had a CT-guided aspiration biopsy, right upper lobe and liquid material was obtained and it was thought that it was probably a lung abscess. She was supposed to have a followup CT later this month. Malignancy was negative. She now has persistent collapse of the right upper lobe and also has a large lytic lesion in the right femur. Likely suspecting metastatic disease with primary lung cancer. 3. No significant tobacco history. 4. Abnormal CT chest as discussed above. 5. History of deep venous thrombosis and atrial fibrillation. She has been on Eliquis, which is on hold. 6. Atrial fibrillation with rapid ventricular response on admission, now improved. Plan . RECOMMENDATIONS: 1. 02 titration to keep sat 92% 2. At this point, she is asymptomatic and we will monitor her pleural effusion for now. If malignancy is confirmed then she may need a thoracentesis and eventually a PleurX catheter. 3. Follow Cardiology recommendation regarding atrial fibrillation. 4. Eliquis is on hold. for biopsy on friday 5. Interventional Radiology consulted 6. DNR will follow along with you. DUNIA BHATT MD Jul 29, 2021 07:54
[2021-07-29] MEDS: ISOSORBIDE MONONITRATE ER 30 MG TAB.ER.24H PO SCH (09:20)
[2021-07-29] MEDS: ATORVASTATIN CALCIUM 10 MG TABLET. PO SCH (09:20)
[2021-07-29] MEDS: BUMETANIDE 1 MG TABLET. PO SCH ×2 (09:20→17:12)
[2021-07-29] MEDS: POTASSIUM CHLORIDE 10 MEQ TABLET.ER. PO SCH (09:20)
[2021-07-29] MEDS: LOSARTAN POTASSIUM 50 MG TABLET. PO SCH (09:21)
[2021-07-29] MEDS: AMOXICILLIN/K CLAV 875/125MG TABLET. PO SCH ×2 (09:21→22:29)
[2021-07-29 11:00] VITALS: BP 145/60
--- NOTE | 2021-07-29 14:34 | RAD ---
XR PELVIS 1-2V, XR FEMUR_RIGHT dated 07/29/2021 12:59 PM. History: Reason: lesion on CT / Spl. Instructions: / History: Comparison: None. Findings: No acute fracture or dislocation is seen. There is lucency at the proximal femur consistent with abno rmality on CT. No visible fracture line is shown. There is probably a small joint effusion at the kne e. AP view of the pelvis shows no fracture or other acute abnormality. No destructive process is seen. Impression: 1. Right femur lesion, redemonstrated but better shown on CT. Electronically signed by: Sae Hernandez Jr., MD (07/29/2021 2:32 PM) [facility]
--- NOTE | 2021-07-29 14:49 | PDOC ---
PROGRESS NOTES Date of Service DATE: 07/29/21 TIME: 14:46 Subjective Subjective Patient seen and examined Objective Objective Vital Signs Date Time Temp Pulse Resp B/P (MAP) Pulse Ox O2 Delivery O2 Flow Rate FiO2 07/29/21 12:28 93 Room Air 07/29/21 11:00 97.5 82 18 145/60 (88) 97.5 Intake and Output 07/29/21 07:00 Intake Total 660 ml Output Total 600 ml Balance 60 ml Intake Oral 660 ml Output Urine Total 600 ml Physical Exam Abdomen: Normal bowel sounds Heart: Regular rate General: mild distress Lungs: Other (Mildly decreased breath sounds) Assessment Assessment Problems Medical Problems: (1) Abnormal CT of the abdomen Status: Acute (2) New onset a-fib Status: Acute AFIB RVR: Remains in sinus rhythm. We will continue to monitor. Patient looks and feels better today. Recent covid-19: noted 4 weeks ago. Continue present treatment. HTN urgency: now controlled. Continue present medications. DM2: per PCP HLP Morbid obesity Hx of DVT Acute on chronic diastolic CHF: now compensated Metastasis?: large lytic lesion at the proximal right femur with possible pathological fracture, right adrenal myelolipoma per CT. defer to PCP Hx of RUL lesion: could not ascertain full result of pathology. reported to be large abscess being treated with antibiotics and steroids. increased to 8.9 cm. Being followed by the pulmonary service. Right pleural effusion: per pulmonary Mild trop elevation: doubt ACS, suspect type 2 demand mediated Comment Review of Relevant I have reviewed the following items frank (where applicable) has been applied. Labs Laboratory Tests Test 07/27/21 16:47 07/27/21 20:17 07/28/21 08:22 07/28/21 11:20 Glucose (Fingerstick) 161 mg/dL (70-99) 134 mg/dL (70-99) 134 mg/dL (70-99) 126 mg/dL (70-99) Test 07/28/21 16:42 07/28/21 21:39 07/29/21 04:00 07/29/21 08:11 Glucose (Fingerstick) 179 mg/dL (70-99) 83 mg/dL (70-99) 129 mg/dL (70-99) White Blood Count 8.8 x10^3/uL (4.0-11.0) Red Blood Count 3.25 x10^6/uL (3.50-5.40) Hemoglobin 8.2 g/dL (12.0-15.5) Hematocrit 25.6 % (36.0-47.0) Mean Corpuscular Volume 79 fL (79-100) Mean Corpuscular Hemoglobin 25 pg (25-35) Mean Corpuscular Hemoglobin Concent 32 g/dL (31-37) Red Cell Distribution Width 17.5 % (11.5-14.5) Platelet Count 293 x10^3/uL (140-400) Neutrophils (%) (Auto) 79 % (31-73) Lymphocytes (%) (Auto) 12 % (24-48) Monocytes (%) (Auto) 6 % (0-9) Eosinophils (%) (Auto) 2 % (0-3) Basophils (%) (Auto) 1 % (0-3) Neutrophils # (Auto) 7.0 x10^3/uL (1.8-7.7) Lymphocytes # (Auto) 1.1 x10^3/uL (1.0-4.8) Monocytes # (Auto) 0.6 x10^3/uL (0.0-1.1) Eosinophils # (Auto) 0.1 x10^3/uL (0.0-0.7) Basophils # (Auto) 0.0 x10^3/uL (0.0-0.2) Sodium Level 134 mmol/L (136-145) Potassium Level 3.8 mmol/L (3.5-5.1) Chloride Level 98 mmol/L (98-107) Carbon Dioxide Level 29 mmol/L (21-32) Anion Gap 7 (6-14) Blood Urea Nitrogen 23 mg/dL (7-20) Creatinine 1.1 mg/dL (0.6-1.0) Estimated GFR (Cockcroft-Gault) 48.0 BUN/Creatinine Ratio 21 (6-20) Glucose Level 128 mg/dL (70-99) Calcium Level 8.3 mg/dL (8.5-10.1) Total Bilirubin 0.6 mg/dL (0.2-1.0) Aspartate Amino Transf (AST/SGOT) 26 U/L (15-37) Alanine Aminotransferase (ALT/SGPT) 21 U/L (14-59) Alkaline Phosphatase 67 U/L (46-116) Total Protein 6.4 g/dL (6.4-8.2) Albumin 2.0 g/dL (3.4-5.0) Albumin/Globulin Ratio 0.5 (1.0-1.7) Test 07/29/21 11:17 Glucose (Fingerstick) 166 mg/dL (70-99) Laboratory Tests Test 07/28/21 16:42 07/28/21 21:39 07/29/21 04:00 07/29/21 08:11 Glucose (Fingerstick) 179 mg/dL (70-99) 83 mg/dL (70-99) 129 mg/dL (70-99) White Blood Count 8.8 x10^3/uL (4.0-11.0) Red Blood Count 3.25 x10^6/uL (3.50-5.40) Hemoglobin 8.2 g/dL (12.0-15.5) Hematocrit 25.6 % (36.0-47.0) Mean Corpuscular Volume 79 fL (79-100) Mean Corpuscular Hemoglobin 25 pg (25-35) Mean Corpuscular Hemoglobin Concent 32 g/dL (31-37) Red Cell Distribution Width 17.5 % (11.5-14.5) Platelet Count 293 x10^3/uL (140-400) Neutrophils (%) (Auto) 79 % (31-73) Lymphocytes (%) (Auto) 12 % (24-48) Monocytes (%) (Auto) 6 % (0-9) Eosinophils (%) (Auto) 2 % (0-3) Basophils (%) (Auto) 1 % (0-3) Neutrophils # (Auto) 7.0 x10^3/uL (1.8-7.7) Lymphocytes # (Auto) 1.1 x10^3/uL (1.0-4.8) Monocytes # (Auto) 0.6 x10^3/uL (0.0-1.1) Eosinophils # (Auto) 0.1 x10^3/uL (0.0-0.7) Basophils # (Auto) 0.0 x10^3/uL (0.0-0.2) Sodium Level 134 mmol/L (136-145) Potassium Level 3.8 mmol/L (3.5-5.1) Chloride Level 98 mmol/L (98-107) Carbon Dioxide Level 29 mmol/L (21-32) Anion Gap 7 (6-14) Blood Urea Nitrogen 23 mg/dL (7-20) Creatinine 1.1 mg/dL (0.6-1.0) Estimated GFR (Cockcroft-Gault) 48.0 BUN/Creatinine Ratio 21 (6-20) Glucose Level 128 mg/dL (70-99) Calcium Level 8.3 mg/dL (8.5-10.1) Total Bilirubin 0.6 mg/dL (0.2-1.0) Aspartate Amino Transf (AST/SGOT) 26 U/L (15-37) Alanine Aminotransferase (ALT/SGPT) 21 U/L (14-59) Alkaline Phosphatase 67 U/L (46-116) Total Protein 6.4 g/dL (6.4-8.2) Albumin 2.0 g/dL (3.4-5.0) Albumin/Globulin Ratio 0.5 (1.0-1.7) Test 07/29/21 11:17 Glucose (Fingerstick) 166 mg/dL (70-99) Microbiology 07/26/21 Blood Culture - Preliminary, Resulted NO GROWTH AFTER 3 DAYS 07/26/21 Urine Culture - Final, Complete Medications Current Medications Ondansetron HCl (Zofran) 4 mg 1X ONCE IVP Last administered on 07/26/21at 12:37; Start 07/26/21 at 11:00; Stop 07/26/21 at 11:01; Status DC Diltiazem HCl (Cardizem Iv Push) 10 mg 1X ONCE IVP Last administered on 07/26/21at 12:54; Start 07/26/21 at 12:15; Stop 07/26/21 at 12:16; Status DC Diltiazem HCl 125 mg/Sodium Chloride 125 ml @ 5 mls/hr 1X ONCE IV Last administered on 07/26/21at 12:55; Start 07/26/21 at 12:15; Stop 07/27/21 at 13:14; Status DC Magnesium Sulfate 50 ml @ 25 mls/hr 1X ONCE IV Last administered on 07/26/21at 14:30; Start 07/26/21 at 14:30; Stop 07/26/21 at 16:29; Status DC Isosorbide Mononitrate (Imdur) 30 mg DAILY PO Last administered on 07/29/21 09:20; Start 07/27/21 at 09:00 Diltiazem HCl (Cardizem 24hr Cd) 180 mg DAILY PO Last administered on 07/29/21at 09:20; Start 07/27/21 at 09:00 Apixaban (Eliquis) 5 mg BID PO ; Start 07/26/21 at 21:00 Diltiazem HCl (Cardizem 24hr Cd) 180 mg 1X ONCE PO ; Start 07/26/21 at 15:30; Stop 07/26/21 at 15:31; Status DC Acetaminophen (Tylenol) 650 mg PRN Q8HRS PRN PO pain or fever Last administered on 07/29/21at 00:41; Start 07/26/21 at 18:00 Atorvastatin Calcium (Lipitor) 10 mg DAILY PO Last administered on 07/29/21at 09:20; Start 07/27/21 at 09:00 Bumetanide (Bumex) 1 mg BID94 PO Last administered on 07/29/21 09:20; Start 07/26/21 at 19:00 Hydralazine HCl (Apresoline) 50 mg DAILY PO Last administered on 07/29/21 09: 20; Start 07/27/21 at 09:00 Albuterol/ Ipratropium (Duoneb) 3 ml RTQID NEB Last administered on 07/29/21at 12:27; Start 07/26/21 at 20:00 Levothyroxine Sodium (Synthroid) 125 mcg DAILY07 PO Last administered on 07/29/21at 06:02; Start 07/27/21 at 07:00 Ondansetron HCl (Zofran Odt) 4 mg PRN BID PRN PO NAUSEA/VOMITING; Start 07/26/21 at 18:00 Potassium Chloride (Klor-Con) 10 meq DAILYWBKFT PO Last administered on 07/29/21at 09:20; Start 07/27/21 at 08:00 Insulin Glargine (Lantus Syringe) 15 unit QHS SQ Last administered on 07/28/21at 21:16; Start 07/26/21 at 21:00 Insulin Human Lispro (HumaLOG) 15 units TIDBFRMEAL SQ Last administered on 07/28/21at 17:09; Start 07/26/21 at 18:30 Losartan Potassium (Cozaar) 100 mg DAILY PO Last administered on 07/29/21at 09:21; Start 07/27/21 at 09:00 Perflutren Protein Type A Microsphe (Optison) 0.66 mg 1X ONCE IV Last administered on 07/27/21at 15:01; Start 07/27/21 at 15:00; Stop 07/27/21 at 15:01; Status DC Amoxicillin/ Clavulanate Potassium (Augmentin 875/ 125mg) 1 tab BID PO Last administered on 07/29/21at 09:21; Start 07/27/21 at 16:00 Active Scripts Active Duoneb 0.5-3(2.5) Mg/3 Ml (Albuterol/Ipratropium) 3 Ml Ampul.neb 3 Ml NEB RTQID 30 Days Klor-Con 10 (Potassium Chloride) 10 Meq Tablet.er 10 Meq PO DAILYWBKFT 30 Days Reported Ondansetron Odt (Ondansetron) 4 Mg Tab.rapdis 4 Mg PO BID PRN Omeprazole 20 Mg Capsule.dr 1 Cap PO DAILY Levemir (Insulin Detemir) 100 Unit/1 Ml Vial 15 Unit SQ HS Calcium 500 + D Tablet (Calcium Carbonate/Vitamin D3) 1 Each Tablet 1 Tab PO DAILY 30 Days Bumetanide 1 Mg Tablet 1 Tab PO BID Augmentin 875-125 Tablet (Amoxicillin/Potassium Clav) 1 Each Tablet 1 Tab PO BID 10 Days Acetaminophen 325 Mg Tablet 2 Tab PO Q4-6HRS PRN 30 Days Losartan Potassium 100 Mg Tablet 100 Mg PO DAILY Trulicity (Dulaglutide) 0.75 Mg/0.5 Ml Pen.injctr 0.75 Mg SQ WEEKLY Levothyroxine Sodium 125 Mcg Tablet 1 Tab PO DAILY Isosorbide Mononitrate Er (Isosorbide Mononitrate) 30 Mg Tab.er.24h 1 Tab PO DAILY Hydralazine Hcl 50 Mg Tablet 1 Tab PO DAILY Humalog (Insulin Lispro) 100 Unit/1 Ml Insuln.pen 15 Unit SQ TIDBFRMEAL Eliquis (Apixaban) 5 Mg Tablet 5 Mg PO BID Atorvastatin Calcium 10 Mg Tablet 1 Tab PO DAILY Metformin Hcl 1,000 Mg Tablet 1 Tab PO BID Vitals/I & O Vital Sign - Last 24 Hours 07/28/21 07/28/21 07/28/21 07/28/21 15:57 18:31 19:29 20:00 Temp 97.4 97.4 Pulse 89 Resp 16 B/P (MAP) 108/53 (71) Pulse Ox 93 94 98 O2 Delivery Room Air Room Air Room Air Room Air 07/28/21 07/29/21 07/29/21 07/29/21 22:36 03:16 06:11 07:00 Temp 98.5 97.9 97.9 98.5 97.9 97.9 Pulse 89 80 80 Resp 16 18 18 B/P (MAP) 119/52 (74) 135/52 (79) 140/59 (86) Pulse Ox 96 94 94 94 O2 Delivery Room Air Room Air Room Air Room Air 07/29/21 07/29/21 07/29/21 07/29/21 08:00 09:20 09:20 09:20 Pulse 80 80 80 B/P (MAP) 140/59 140/59 140/59 O2 Delivery Room Air 07/29/21 07/29/21 07/29/21 09:21 11:00 12:28 Temp 97.5 97.5 Pulse 80 82 Resp 18 B/P (MAP) 140/59 145/60 (88) Pulse Ox 94 93 O2 Delivery Room Air Room Air Intake and Output 07/28/21 07/28/21 07/29/21 15:00 23:00 07:00 Intake Total 280 ml 180 ml 200 ml Output Total 350 ml 250 ml Balance 280 ml -170 ml -50 ml Justifications for Admission Other Justification Nutrition Consultation Dietary Evaluation: Recommendations by RD: Dietary education by RD, Increase Calorie Intake, Protein supplementation Comments: rec ADA/Cardiac diet glucerna tid MVI and vit c per wound protocal Expected Outcomes/Goals: to meet >75% est nutr needs improved wound status Interpretation of weight loss: >5% in 1 month Malnutrition Findings: Food and Nutrition Intake (Sev: <50% est energy req 5days Weight Status: Obese EDWIN TUCKER MD Jul 29, 2021 14:49
--- NOTE | 2021-07-29 14:53 | PDOC2 ---
CONSULT Date of Consult Date of Consult DATE: 07/29/21 TIME: 14:52 Reason for Consult Reason for Consult: Lytic lesion R proximal femur Referring Physician Referring Physician: Alexx Identification/Chief Complaint Chief Complaint Right leg pain Source Source: Chart review, Patient History of Present Illness Reason for Visit: Patient is a pleasant 76-year-old female with a complicated past history who was admitted for trouble breathing as her chief complaint. I was asked to see her when a lytic lesion was noted in her right proximal femur. She tells me she has had leg pain that has gotten slowly progressively worse over the past 3 to 4 months. It hurts with weightbearing. She had an episode of sharp increase in pain when she was doing some strengthening exercises a while ago, she cannot recall further details about this. A CT chest abdomen pelvis revealed an enlarging lung nodule. She apparently has had some care done at [facility] where they recommended a bronchoscopy but this had not been performed. Past Medical History Cardiovascular: HTN, Hyperlipidemia CENTRAL NERVOUS SYSTEM: Other GI: No pertinent hx Heme/Onc: Other Hepatobiliary: No pertinent hx Psych: No pertinent hx Musculoskeletal: Osteoarthritis Rheumatologic: No pertinent hx Infectious disease: No pertinent hx Renal/: No pertinent hx Endocrine: Diabetes, Hypothyroidism Past Surgical History Past Surgical History: Cholecystectomy, Hysterectomy Family History Family History: Heart Disease Social History No ALCOHOL: none Drugs: None Lives: Alone Current Problem List Problem List Problems Medical Problems: (1) Abnormal CT of the abdomen Status: Acute (2) New onset a-fib Status: Acute Current Medications Current Medications Current Medications Ondansetron HCl (Zofran) 4 mg 1X ONCE IVP Last administered on 07/26/21at 12:37; Start 07/26/21 at 11:00; Stop 07/26/21 at 11:01; Status DC Diltiazem HCl (Cardizem Iv Push) 10 mg 1X ONCE IVP Last administered on 07/26/21at 12:54; Start 07/26/21 at 12:15; Stop 07/26/21 at 12:16; Status DC Diltiazem HCl 125 mg/Sodium Chloride 125 ml @ 5 mls/hr 1X ONCE IV Last administered on 07/26/21at 12:55; Start 07/26/21 at 12:15; Stop 07/27/21 at 13:14; Status DC Magnesium Sulfate 50 ml @ 25 mls/hr 1X ONCE IV Last administered on 07/26/21at 14:30; Start 07/26/21 at 14:30; Stop 07/26/21 at 16:29; Status DC Isosorbide Mononitrate (Imdur) 30 mg DAILY PO Last administered on 07/29/21at 09:20; Start 07/27/21 at 09:00 Diltiazem HCl (Cardizem 24hr Cd) 180 mg DAILY PO Last administered on 07/29/21at 09:20; Start 07/27/21 at 09:00 Apixaban (Eliquis) 5 mg BID PO ; Start 07/26/21 at 21:00 Diltiazem HCl (Cardizem 24hr Cd) 180 mg 1X ONCE PO ; Start 07/26/21 at 15:30; Stop 07/26/21 at 15:31; Status DC Acetaminophen (Tylenol) 650 mg PRN Q8HRS PRN PO pain or fever Last administered on 07/29/21at 00:41; Start 07/26/21 at 18:00 Atorvastatin Calcium (Lipitor) 10 mg DAILY PO Last administered on 07/29/21at 09:20; Start 07/27/21 at 09:00 Bumetanide (Bumex) 1 mg BID94 PO Last administered on 07/29/21 09:20; Start 07/26/21 at 19:00 Hydralazine HCl (Apresoline) 50 mg DAILY PO Last administered on 07/29/21at 09:20; Start 07/27/21 at 09:00 Albuterol/ Ipratropium (Duoneb) 3 ml RTQID NEB Last administered on 07/29/21at 12:27; Start 07/26/21 at 20:00 Levothyroxine Sodium (Synthroid) 125 mcg DAILY07 PO Last administered on 07/29/21at 06:02; Start 07/27/21 at 07:00 Ondansetron HCl (Zofran Odt) 4 mg PRN BID PRN PO NAUSEA/VOMITING; Start 07/26/21 at 18:00 Potassium Chloride (Klor-Con) 10 meq DAILYWBKFT PO Last administered on 07/29/21at 09:20; Start 07/27/21 at 08:00 Insulin Glargine (Lantus Syringe) 15 unit QHS SQ Last administered on 07/28/21at 21:16; Start 07/26/21 at 21:00 Insulin Human Lispro (HumaLOG) 15 units TIDBFRMEAL SQ Last administered on 07/28/21at 17:09; Start 07/26/21 at 18:30 Losartan Potassium (Cozaar) 100 mg DAILY PO Last administered on 07/29/21at 09:21; Start 07/27/21 at 09:00 Perflutren Protein Type A Microsphe (Optison) 0.66 mg 1X ONCE IV Last administered on 07/27/21at 15:01; Start 07/27/21 at 15:00; Stop 07/27/21 at 15:01; Status DC Amoxicillin/ Clavulanate Potassium (Augmentin 875/ 125mg) 1 tab BID PO Last administered on 07/29/21at 09:21; Start 07/27/21 at 16:00 Active Scripts Active Duoneb 0.5-3(2.5) Mg/3 Ml (Albuterol/Ipratropium) 3 Ml Ampul.neb 3 Ml NEB RTQID 30 Days Klor-Con 10 (Potassium Chloride) 10 Meq Tablet.er 10 Meq PO DAILYWBKFT 30 Days Reported Ondansetron Odt (Ondansetron) 4 Mg Tab.rapdis 4 Mg PO BID PRN Omeprazole 20 Mg Capsule.dr 1 Cap PO DAILY Levemir (Insulin Detemir) 100 Unit/1 Ml Vial 15 Unit SQ HS Calcium 500 + D Tablet (Calcium Carbonate/Vitamin D3) 1 Each Tablet 1 Tab PO DAILY 30 Days Bumetanide 1 Mg Tablet 1 Tab PO BID Augmentin 875-125 Tablet (Amoxicillin/Potassium Clav) 1 Each Tablet 1 Tab PO BID 10 Days Acetaminophen 325 Mg Tablet 2 Tab PO Q4-6HRS PRN 30 Days Losartan Potassium 100 Mg Tablet 100 Mg PO DAILY Trulicity (Dulaglutide) 0.75 Mg/0.5 Ml Pen.injctr 0.75 Mg SQ WEEKLY Levothyroxine Sodium 125 Mcg Tablet 1 Tab PO DAILY Isosorbide Mononitrate Er (Isosorbide Mononitrate) 30 Mg Tab.er.24h 1 Tab PO DAILY Hydralazine Hcl 50 Mg Tablet 1 Tab PO DAILY Humalog (Insulin Lispro) 100 Unit/1 Ml Insuln.pen 15 Unit SQ TIDBFRMEAL Eliquis (Apixaban) 5 Mg Tablet 5 Mg PO BID Atorvastatin Calcium 10 Mg Tablet 1 Tab PO DAILY Metformin Hcl 1,000 Mg Tablet 1 Tab PO BID Allergies Allergies: Coded Allergies: Sulfa (Sulfonamide Antibiotics) (Unverified Allergy, Intermediate, HIVES, 06/15/21) Physical Exam General: Alert, Oriented X3 HEENT: Atraumatic, EOMI Lungs: Other (Respirations are unlabored symmetric chest rise) Heart: Regular rate Abdomen: Soft, No tenderness Extremities: No edema, Normal pulses Skin: No rashes Neuro: Normal speech, Strength at 5/5 X4 ext, Sensation intact Psych/Mental Status: Mental status NL, Mood NL MUSCULOSKELETAL: Other (On examination, symmetric leg lengths. Normal motor and sensation distally. Dorsalis pedis 2+. No skin changes around her hip. No pain with logrolling.) Vitals VITALS Vital Signs Date Time Temp Pulse Resp B/P (MAP) Pulse Ox O2 Delivery O2 Flow Rate FiO2 07/29/21 12:28 93 Room Air 07/29/21 11:00 97.5 82 18 145/60 (88) 97.5 Labs Labs Laboratory Tests Test 07/27/21 16:47 07/27/21 20:17 07/28/21 08:22 07/28/21 11:20 Glucose (Fingerstick) 161 mg/dL (70-99) 134 mg/dL (70-99) 134 mg/dL (70-99) 126 mg/dL (70-99) Test 07/28/21 16:42 07/28/21 21:39 07/29/21 04:00 07/29/21 08:11 Glucose (Fingerstick) 179 mg/dL (70-99) 83 mg/dL (70-99) 129 mg/dL (70-99) White Blood Count 8.8 x10^3/uL (4.0-11.0) Red Blood Count 3.25 x10^6/uL (3.50-5.40) Hemoglobin 8.2 g/dL (12.0-15.5) Hematocrit 25.6 % (36.0-47.0) Mean Corpuscular Volume 79 fL (79-100) Mean Corpuscular Hemoglobin 25 pg (25-35) Mean Corpuscular Hemoglobin Concent 32 g/dL (31-37) Red Cell Distribution Width 17.5 % (11.5-14.5) Platelet Count 293 x10^3/uL (140-400) Neutrophils (%) (Auto) 79 % (31-73) Lymphocytes (%) (Auto) 12 % (24-48) Monocytes (%) (Auto) 6 % (0-9) Eosinophils (%) (Auto) 2 % (0-3) Basophils (%) (Auto) 1 % (0-3) Neutrophils # (Auto) 7.0 x10^3/uL (1.8-7.7) Lymphocytes # (Auto) 1.1 x10^3/uL (1.0-4.8) Monocytes # (Auto) 0.6 x10^3/uL (0.0-1.1) Eosinophils # (Auto) 0.1 x10^3/uL (0.0-0.7) Basophils # (Auto) 0.0 x10^3/uL (0.0-0.2) Sodium Level 134 mmol/L (136-145) Potassium Level 3.8 mmol/L (3.5-5.1) Chloride Level 98 mmol/L (98-107) Carbon Dioxide Level 29 mmol/L (21-32) Anion Gap 7 (6-14) Blood Urea Nitrogen 23 mg/dL (7-20) Creatinine 1.1 mg/dL (0.6-1.0) Estimated GFR (Cockcroft-Gault) 48.0 BUN/Creatinine Ratio 21 (6-20) Glucose Level 128 mg/dL (70-99) Calcium Level 8.3 mg/dL (8.5-10.1) Total Bilirubin 0.6 mg/dL (0.2-1.0) Aspartate Amino Transf (AST/SGOT) 26 U/L (15-37) Alanine Aminotransferase (ALT/SGPT) 21 U/L (14-59) Alkaline Phosphatase 67 U/L (46-116) Total Protein 6.4 g/dL (6.4-8.2) Albumin 2.0 g/dL (3.4-5.0) Albumin/Globulin Ratio 0.5 (1.0-1.7) Test 07/29/21 11:17 Glucose (Fingerstick) 166 mg/dL (70-99) Laboratory Tests Test 07/28/21 16:42 07/28/21 21:39 07/29/21 04:00 07/29/21 08:11 Glucose (Fingerstick) 179 mg/dL (70-99) 83 mg/dL (70-99) 129 mg/dL (70-99) White Blood Count 8.8 x10^3/uL (4.0-11.0) Red Blood Count 3.25 x10^6/uL (3.50-5.40) Hemoglobin 8.2 g/dL (12.0-15.5) Hematocrit 25.6 % (36.0-47.0) Mean Corpuscular Volume 79 fL (79-100) Mean Corpuscular Hemoglobin 25 pg (25-35) Mean Corpuscular Hemoglobin Concent 32 g/dL (31-37) Red Cell Distribution Width 17.5 % (11.5-14.5) Platelet Count 293 x10^3/uL (140-400) Neutrophils (%) (Auto) 79 % (31-73) Lymphocytes (%) (Auto) 12 % (24-48) Monocytes (%) (Auto) 6 % (0-9) Eosinophils (%) (Auto) 2 % (0-3) Basophils (%) (Auto) 1 % (0-3) Neutrophils # (Auto) 7.0 x10^3/uL (1.8-7.7) Lymphocytes # (Auto) 1.1 x10^3/uL (1.0-4.8) Monocytes # (Auto) 0.6 x10^3/uL (0.0-1.1) Eosinophils # (Auto) 0.1 x10^3/uL (0.0-0.7) Basophils # (Auto) 0.0 x10^3/uL (0.0-0.2) Sodium Level 134 mmol/L (136-145) Potassium Level 3.8 mmol/L (3.5-5.1) Chloride Level 98 mmol/L (98-107) Carbon Dioxide Level 29 mmol/L (21-32) Anion Gap 7 (6-14) Blood Urea Nitrogen 23 mg/dL (7-20) Creatinine 1.1 mg/dL (0.6-1.0) Estimated GFR (Cockcroft-Gault) 48.0 BUN/Creatinine Ratio 21 (6-20) Glucose Level 128 mg/dL (70-99) Calcium Level 8.3 mg/dL (8.5-10.1) Total Bilirubin 0.6 mg/dL (0.2-1.0) Aspartate Amino Transf (AST/SGOT) 26 U/L (15-37) Alanine Aminotransferase (ALT/SGPT) 21 U/L (14-59) Alkaline Phosphatase 67 U/L (46-116) Total Protein 6.4 g/dL (6.4-8.2) Albumin 2.0 g/dL (3.4-5.0) Albumin/Globulin Ratio 0.5 (1.0-1.7) Test 07/29/21 11:17 Glucose (Fingerstick) 166 mg/dL (70-99) Images Images Xrays and CT findings reviewed Assessment/Plan Assessment/Plan Lytic lesion right proximal femur with enlarging lung mass, high suspicion for metastatic lung cancer. I would recommend nonweightbearing given her progressive pain. I recommend prophylactic intramedullary nailing as managed by an orthopedic oncologist. I would hold off on any IR biopsy and let this be managed by the orthopedic oncologist. ROLAND WOOTEN II, MD Jul 29, 2021 14:53
[2021-07-29 15:00] VITALS: BP 126/67
--- NOTE | 2021-07-29 15:31 | PDOC ---
[employer] PROGRESS NOTE Date of Service DOS: DATE: 07/29/21 TIME: 15:21 Chief Complaint Chief Complaint nausea and vomiting atrial fibrillation with RVR acute on chronic diastolic CHF obese, BMI 35 htn lipids CHF, chronic diastolic, on lasix at baseline RUL lung mass, Augmentin had been started at [facility] last week, and they thought she needed 4 weeks abx History of Present Illness History of Present Illness HR better still weak needs PT and oT long discussion with Dr. Bose, metastatic lung cancer lesion to leg, biopsy would not be advised of the leg, her pain could be improved with surgery by an Oncologic Orthopedist, would transfer to , DR. Overton, would like him there is no way. needs to be NWB, is functionally bed bound, can transfer by wheelchair, needs to call [phone], call on friday to get f/u on this, large lytic lesion, pending pathologic fracture, Vitals/I&O Vitals/I&O: Vital Signs Date Time Temp Pulse Resp B/P (MAP) Pulse Ox O2 Delivery O2 Flow Rate FiO2 07/29/21 12:28 93 Room Air 07/29/21 11:00 97.5 82 18 145/60 (88) 97.5 I & O 07/28/21 07/28/21 07/29/21 15:00 23:00 07:00 Intake Total 280 ml 180 ml 200 ml Output Total 350 ml 250 ml Balance 280 ml -170 ml -50 ml Physical Exam General: Alert, Cooperative, mild distress Heart: Regular rate Lungs: Other (b lat diminished ) Abdomen: Normal bowel sounds Extremities: No cyanosis, No edema, Normal pulses Skin: No breakdown Labs Labs: Laboratory Tests Test 07/28/21 16:42 07/28/21 21:39 07/29/21 04:00 07/29/21 08:11 Glucose (Fingerstick) 179 mg/dL (70-99) 83 mg/dL (70-99) 129 mg/dL (70-99) White Blood Count 8.8 x10^3/uL (4.0-11.0) Red Blood Count 3.25 x10^6/uL (3.50-5.40) Hemoglobin 8.2 g/dL (12.0-15.5) Hematocrit 25.6 % (36.0-47.0) Mean Corpuscular Volume 79 fL (79-100) Mean Corpuscular Hemoglobin 25 pg (25-35) Mean Corpuscular Hemoglobin Concent 32 g/dL (31-37) Red Cell Distribution Width 17.5 % (11.5-14.5) Platelet Count 293 x10^3/uL (140-400) Neutrophils (%) (Auto) 79 % (31-73) Lymphocytes (%) (Auto) 12 % (24-48) Monocytes (%) (Auto) 6 % (0-9) Eosinophils (%) (Auto) 2 % (0-3) Basophils (%) (Auto) 1 % (0-3) Neutrophils # (Auto) 7.0 x10^3/uL (1.8-7.7) Lymphocytes # (Auto) 1.1 x10^3/uL (1.0-4.8) Monocytes # (Auto) 0.6 x10^3/uL (0.0-1.1) Eosinophils # (Auto) 0.1 x10^3/uL (0.0-0.7) Basophils # (Auto) 0.0 x10^3/uL (0.0-0.2) Sodium Level 134 mmol/L (136-145) Potassium Level 3.8 mmol/L (3.5-5.1) Chloride Level 98 mmol/L (98-107) Carbon Dioxide Level 29 mmol/L (21-32) Anion Gap 7 (6-14) Blood Urea Nitrogen 23 mg/dL (7-20) Creatinine 1.1 mg/dL (0.6-1.0) Estimated GFR (Cockcroft-Gault) 48.0 BUN/Creatinine Ratio 21 (6-20) Glucose Level 128 mg/dL (70-99) Calcium Level 8.3 mg/dL (8.5-10.1) Total Bilirubin 0.6 mg/dL (0.2-1.0) Aspartate Amino Transf (AST/SGOT) 26 U/L (15-37) Alanine Aminotransferase (ALT/SGPT) 21 U/L (14-59) Alkaline Phosphatase 67 U/L (46-116) Total Protein 6.4 g/dL (6.4-8.2) Albumin 2.0 g/dL (3.4-5.0) Albumin/Globulin Ratio 0.5 (1.0-1.7) Test 07/29/21 11:17 Glucose (Fingerstick) 166 mg/dL (70-99) Assessment and Plan Assessmemt and Plan Problems Medical Problems: (1) Abnormal CT of the abdomen Status: Acute (2) New onset a-fib Status: Acute Comment Review of Relevant I have reviewed the following items frank (where applicable) has been applied. Justifications for Admission Other Justification CHRISTOPH ARGUETA MD Jul 29, 2021 15:31
[2021-07-29 19:16] VITALS: BP 158/76
[2021-07-29] MEDS ORDERED: QUEtiapine 25 MG TABLET. PO ONE (19:45)
--- NOTE | 2021-07-29 22:00 | RAD ---
Chest AP portable at 2052: Reason for examination: Acute confusion. Comparison is made to previous chest dated 07/26/2021. The heart size and mediastinum are unchanged. There continues to be elevation of the right hemidiaphr agm. There continues be opacification of the right upper lobe which is stable. Some increased marking s are seen at the left lung base however which may reflect some developing infiltrates. There is slig ht blunting at the costophrenic angle on the right which suggests a small pleural effusion. No acute bony abnormalities are seen. IMPRESSION: Continued presence of opacification in the right upper lobe and small right pleural effusion. Increased markings developing in the left lower lobe and developing infiltrate cannot be excluded. CT head without contrast: Comparison is made to previous study dated 07/26/2021. Helical images were obtained through the brain with no contrast administered. Reconstruction was perf ormed in coronal plane. Exposure: One or more of the following individualized dose reduction techniques were utilized for thi s examination: 1. Automated exposure control 2. Adjustment of the mA and/or kV according to patient size 3. Use of iterative reconstruction technique. Ventricular systems are symmetric and not abnormally dilated. No midline shift is seen. There is no e vidence of intracranial hemorrhage, infarct, mass or edema. No abnormalities of seen at the orbits. T he paranasal sinuses and mastoid air cells are clear. No acute abnormality seen in the calvarium. IMPRESSION: No acute intracranial abnormality evident. Electronically signed by: Krysten Gonzalez MD (07/29/2021 9:57 PM) DAVID
[2021-07-29] MEDS: INSULIN GLARGINE SYRINGE. SQ SCH (22:30)
[2021-07-29 23:04] VITALS: BP 140/59
[2021-07-30 03:12] VITALS: BP 131/47
[2021-07-30 06:38] LABS: BASO % 1 % (0-3); EOS % 1 % (0-3); HEMATOCRIT 24.8 % (36.0-47.0); HEMOGLOBIN 7.9 g/dL (12.0-15.5); LYMPH # 1.1 x10^3/uL (1.0-4.8); LYMPH % 16 % (24-48); MEAN CORPUSCULAR HEMOGLOBIN 25 pg (25-35); MEAN CORPUSCULAR HGB CONC 32 g/dL (31-37); MEAN CORPUSCULAR VOLUME 78 fL (79-100); MONO # 0.5 x10^3/uL (0.0-1.1); MONO % 7 % (0-9); NEUT # 5.6 x10^3/uL (1.8-7.7); NEUT % 77 % (31-73); PLATELET COUNT 265 x10^3/uL (140-400); RED BLOOD COUNT 3.19 x10^6/uL (3.50-5.40); RED CELL DISTRIBUTION WIDTH 17.7 % (11.5-14.5); WHITE BLOOD COUNT 7.2 x10^3/uL (4.0-11.0)
[2021-07-30] MEDS: IPRATRPIUM/ALBUTEROL 0.5/2.5MG 3 ML NEBU. NEB SCH ×4 (06:53→18:57)
[2021-07-30 07:01] LABS: PROTHROMBIN TIME PATIENT 16.1 SEC (11.7-14.0)
[2021-07-30 07:06] LABS: ALBUMIN 1.8 g/dL (3.4-5.0); ALBUMIN/GLOBULIN RATIO 0.4 (1.0-1.7); CREATININE 1.1 mg/dL (0.6-1.0); TOTAL BILIRUBIN 0.6 mg/dL (0.2-1.0); TOTAL PROTEIN 6.1 g/dL (6.4-8.2)
[2021-07-30] MEDS: INSULIN LISPRO 300 UNITS/3 ML VIAL. SQ SCH ×3 (07:30→16:30)
[2021-07-30] MEDS: APIXABAN 5 MG TABLET. PO SCH ×2 (07:37→21:00)
[2021-07-30 07:55] VITALS: BP 132/41
--- NOTE | 2021-07-30 10:12 | PDOC ---
PULMONARY PROGRESS NOTES DATE: 07/30/21 TIME: 10:05 Subjective Patient is lethargic. She denies any significant pain. Currently on nasal cannula Vitals Vital Signs Date Time Temp Pulse Resp B/P (MAP) Pulse Ox O2 Delivery O2 Flow Rate FiO2 07/30/21 07:55 98.1 100 18 132/41 (71) 99 Nasal Cannula 2.0 98.1 ROS: No Nausea General: No acute distress, Lethargic HEENT: Other (nc at ) Lungs: Other (b lat diminished ) Cardiovascular: S1, S2 Abdomen: Soft Extremities: Other Skin: Warm Labs Laboratory Tests Test 07/28/21 11:20 07/28/21 16:42 07/28/21 21:39 07/29/21 04:00 Glucose (Fingerstick) 126 mg/dL (70-99) 179 mg/dL (70-99) 83 mg/dL (70-99) White Blood Count 8.8 x10^3/uL (4.0-11.0) Red Blood Count 3.25 x10^6/uL (3.50-5.40) Hemoglobin 8.2 g/dL (12.0-15.5) Hematocrit 25.6 % (36.0-47.0) Mean Corpuscular Volume 79 fL (79-100) Mean Corpuscular Hemoglobin 25 pg (25-35) Mean Corpuscular Hemoglobin Concent 32 g/dL (31-37) Red Cell Distribution Width 17.5 % (11.5-14.5) Platelet Count 293 x10^3/uL (140-400) Neutrophils (%) (Auto) 79 % (31-73) Lymphocytes (%) (Auto) 12 % (24-48) Monocytes (%) (Auto) 6 % (0-9) Eosinophils (%) (Auto) 2 % (0-3) Basophils (%) (Auto) 1 % (0-3) Neutrophils # (Auto) 7.0 x10^3/uL (1.8-7.7) Lymphocytes # (Auto) 1.1 x10^3/uL (1.0-4.8) Monocytes # (Auto) 0.6 x10^3/uL (0.0-1.1) Eosinophils # (Auto) 0.1 x10^3/uL (0.0-0.7) Basophils # (Auto) 0.0 x10^3/uL (0.0-0.2) Sodium Level 134 mmol/L (136-145) Potassium Level 3.8 mmol/L (3.5-5.1) Chloride Level 98 mmol/L (98-107) Carbon Dioxide Level 29 mmol/L (21-32) Anion Gap 7 (6-14) Blood Urea Nitrogen 23 mg/dL (7-20) Creatinine 1.1 mg/dL (0.6-1.0) Estimated GFR (Cockcroft-Gault) 48.0 BUN/Creatinine Ratio 21 (6-20) Glucose Level 128 mg/dL (70-99) Calcium Level 8.3 mg/dL (8.5-10.1) Total Bilirubin 0.6 mg/dL (0.2-1.0) Aspartate Amino Transf (AST/SGOT) 26 U/L (15-37) Alanine Aminotransferase (ALT/SGPT) 21 U/L (14-59) Alkaline Phosphatase 67 U/L (46-116) Total Protein 6.4 g/dL (6.4-8.2) Albumin 2.0 g/dL (3.4-5.0) Albumin/Globulin Ratio 0.5 (1.0-1.7) Test 07/29/21 08:11 07/29/21 11:17 07/29/21 16:12 07/29/21 20:39 Glucose (Fingerstick) 129 mg/dL (70-99) 166 mg/dL (70-99) 163 mg/dL (70-99) 160 mg/dL (70-99) Test 07/30/21 04:20 07/30/21 08:38 White Blood Count 7.2 x10^3/uL (4.0-11.0) Red Blood Count 3.19 x10^6/uL (3.50-5.40) Hemoglobin 7.9 g/dL (12.0-15.5) Hematocrit 24.8 % (36.0-47.0) Mean Corpuscular Volume 78 fL (79-100) Mean Corpuscular Hemoglobin 25 pg (25-35) Mean Corpuscular Hemoglobin Concent 32 g/dL (31-37) Red Cell Distribution Width 17.7 % (11.5-14.5) Platelet Count 265 x10^3/uL (140-400) Neutrophils (%) (Auto) 77 % (31-73) Lymphocytes (%) (Auto) 16 % (24-48) Monocytes (%) (Auto) 7 % (0-9) Eosinophils (%) (Auto) 1 % (0-3) Basophils (%) (Auto) 1 % (0-3) Neutrophils # (Auto) 5.6 x10^3/uL (1.8-7.7) Lymphocytes # (Auto) 1.1 x10^3/uL (1.0-4.8) Monocytes # (Auto) 0.5 x10^3/uL (0.0-1.1) Eosinophils # (Auto) 0.0 x10^3/uL (0.0-0.7) Basophils # (Auto) 0.0 x10^3/uL (0.0-0.2) Prothrombin Time 16.1 SEC (11.7-14.0) Prothromb Time International Ratio 1.3 (0.8-1.1) Sodium Level 136 mmol/L (136-145) Potassium Level 4.0 mmol/L (3.5-5.1) Chloride Level 98 mmol/L (98-107) Carbon Dioxide Level 27 mmol/L (21-32) Anion Gap 11 (6-14) Blood Urea Nitrogen 22 mg/dL (7-20) Creatinine 1.1 mg/dL (0.6-1.0) Estimated GFR (Cockcroft-Gault) 48.0 BUN/Creatinine Ratio 20 (6-20) Glucose Level 156 mg/dL (70-99) Calcium Level 8.0 mg/dL (8.5-10.1) Total Bilirubin 0.6 mg/dL (0.2-1.0) Aspartate Amino Transf (AST/SGOT) 24 U/L (15-37) Alanine Aminotransferase (ALT/SGPT) 19 U/L (14-59) Alkaline Phosphatase 73 U/L (46-116) Total Protein 6.1 g/dL (6.4-8.2) Albumin 1.8 g/dL (3.4-5.0) Albumin/Globulin Ratio 0.4 (1.0-1.7) Glucose (Fingerstick) 115 mg/dL (70-99) Laboratory Tests Test 07/29/21 11:17 07/29/21 16:12 07/29/21 20:39 07/30/21 04:20 Glucose (Fingerstick) 166 mg/dL (70-99) 163 mg/dL (70-99) 160 mg/dL (70-99) White Blood Count 7.2 x10^3/uL (4.0-11.0) Red Blood Count 3.19 x10^6/uL (3.50-5.40) Hemoglobin 7.9 g/dL (12.0-15.5) Hematocrit 24.8 % (36.0-47.0) Mean Corpuscular Volume 78 fL (79-100) Mean Corpuscular Hemoglobin 25 pg (25-35) Mean Corpuscular Hemoglobin Concent 32 g/dL (31-37) Red Cell Distribution Width 17.7 % (11.5-14.5) Platelet Count 265 x10^3/uL (140-400) Neutrophils (%) (Auto) 77 % (31-73) Lymphocytes (%) (Auto) 16 % (24-48) Monocytes (%) (Auto) 7 % (0-9) Eosinophils (%) (Auto) 1 % (0-3) Basophils (%) (Auto) 1 % (0-3) Neutrophils # (Auto) 5.6 x10^3/uL (1.8-7.7) Lymphocytes # (Auto) 1.1 x10^3/uL (1.0-4.8) Monocytes # (Auto) 0.5 x10^3/uL (0.0-1.1) Eosinophils # (Auto) 0.0 x10^3/uL (0.0-0.7) Basophils # (Auto) 0.0 x10^3/uL (0.0-0.2) Prothrombin Time 16.1 SEC (11.7-14.0) Prothromb Time International Ratio 1.3 (0.8-1.1) Sodium Level 136 mmol/L (136-145) Potassium Level 4.0 mmol/L (3.5-5.1) Chloride Level 98 mmol/L (98-107) Carbon Dioxide Level 27 mmol/L (21-32) Anion Gap 11 (6-14) Blood Urea Nitrogen 22 mg/dL (7-20) Creatinine 1.1 mg/dL (0.6-1.0) Estimated GFR (Cockcroft-Gault) 48.0 BUN/Creatinine Ratio 20 (6-20) Glucose Level 156 mg/dL (70-99) Calcium Level 8.0 mg/dL (8.5-10.1) Total Bilirubin 0.6 mg/dL (0.2-1.0) Aspartate Amino Transf (AST/SGOT) 24 U/L (15-37) Alanine Aminotransferase (ALT/SGPT) 19 U/L (14-59) Alkaline Phosphatase 73 U/L (46-116) Total Protein 6.1 g/dL (6.4-8.2) Albumin 1.8 g/dL (3.4-5.0) Albumin/Globulin Ratio 0.4 (1.0-1.7) Test 07/30/21 08:38 Glucose (Fingerstick) 115 mg/dL (70-99) Medications Active Scripts Medications Dose Route/Sig Max Daily Dose Days Date Category Ondansetron Odt (Ondansetron) 4 Mg Tab.rapdis 4 Mg PO BID PRN 07/26/21 Reported Omeprazole 20 Mg Capsule.dr 1 Cap PO DAILY 07/26/21 Reported Levemir (Insulin Detemir) 100 Unit/1 Ml Vial 15 Unit SQ HS 07/26/21 Reported Calcium 500 + D Tablet (Calcium Carbonate/Vitamin D3) 1 Each Tablet 1 Tab PO DAILY 30 07/26/21 Reported Bumetanide 1 Mg Tablet 1 Tab PO BID 07/26/21 Reported Augmentin 875-125 Tablet (Amoxicillin/Potassium Clav) 1 Each Tablet 1 Tab PO BID 10 07/26/21 Reported Acetaminophen 325 Mg Tablet 2 Tab PO Q4-6HRS PRN 30 07/26/21 Reported Duoneb 0.5-3(2.5) Mg/3 Ml (Albuterol/Ipratropium) 3 Ml Ampul.neb 3 Ml NEB RTQID 30 06/21/21 Rx Losartan Potassium 100 Mg Tablet 100 Mg PO DAILY 06/20/21 Reported Trulicity (Dulaglutide) 0.75 Mg/0.5 Ml Pen.injctr 0.75 Mg SQ WEEKLY 06/17/21 Reported Levothyroxine Sodium 125 Mcg Tablet 1 Tab PO DAILY 06/17/21 Reported Isosorbide Mononitrate Er (Isosorbide Mononitrate) 30 Mg Tab.er.24h 1 Tab PO DAILY 06/17/21 Reported Hydralazine Hcl 50 Mg Tablet 1 Tab PO DAILY 06/17/21 Reported Klor-Con 10 (Potassium Chloride) 10 Meq Tablet.er 10 Meq PO DAILYWBKFT 30 10/23/18 Rx Humalog (Insulin Lispro) 100 Unit/1 Ml Insuln.pen 15 Unit SQ TIDBFRMEAL 10/21/18 Reported Eliquis (Apixaban) 5 Mg Tablet 5 Mg PO BID 10/21/18 Reported Atorvastatin Calcium 10 Mg Tablet 1 Tab PO DAILY 10/21/18 Reported Metformin Hcl 1,000 Mg Tablet 1 Tab PO BID 08/13/14 Reported Impression . IMPRESSION: 1. Abnormal CT chest with persistent and increased masslike consolidation in the right upper lobe. She had narrowing of the right main pulmonary artery. She has now a right lower lobe pleural effusion. Last month, she had a CT-guided aspiration biopsy, right upper lobe and liquid material was obtained and it was thought that it was probably a lung abscess. She was supposed to have a followup CT later this month. Malignancy was negative. She now has persistent collapse of the right upper lobe and also has a large lytic lesion in the right femur. Likely suspecting metastatic disease with primary lung cancer. 3. No significant tobacco history. 4. Abnormal CT chest as discussed above. 5. History of deep venous thrombosis and atrial fibrillation. She has been on Eliquis, which is on hold. 6. Atrial fibrillation with rapid ventricular response on admission, now improved. Plan . RECOMMENDATIONS: 1. 02 titration to keep sat 92% 2. At this point, she is asymptomatic and we will monitor her pleural effusion for now. If malignancy is confirmed then she may need a thoracentesis and eventually a PleurX catheter. 3. Follow Cardiology recommendation regarding atrial fibrillation. 4. Eliquis is on hold. for biopsy on friday 5. Interventional Radiology recommendation 6. DNR Addendum; discussed with interventional radiologist. CT-guided bone marrow aspiration biopsy has been canceled. Patient was seen by orthopedic surgeon Dr. Levy. He recommended not to pursue with CT-guided biopsy and and instead patient will require surgical intervention on her right hip and to be done by oncology orthopedic surgeon. I have discussed in detail this situation with the patient and her daughter at the bedside. Explained to her that patient is very weak to consider any form of treatment. I asked the patient about the surgical option. She says that she wants to go home. She is not interested in having any surgical intervention. The daughter wants to do what ever her mother wants to do. I recommended hospice. And they both agree. We will consult piano case maker ALEKSANDRA KERN MD Jul 30, 2021 10:12
[2021-07-30] MEDS: AMOXICILLIN/K CLAV 875/125MG TABLET. PO SCH ×2 (10:26→21:13)
[2021-07-30] MEDS: POTASSIUM CHLORIDE 10 MEQ TABLET.ER. PO SCH (10:26)
[2021-07-30] MEDS: BUMETANIDE 1 MG TABLET. PO SCH ×2 (10:27→16:00)
[2021-07-30] MEDS: LEVOTHYROXINE 125 MCG TABLET PO SCH (10:28)
[2021-07-30] MEDS: ISOSORBIDE MONONITRATE ER 30 MG TAB.ER.24H PO SCH (10:28)
[2021-07-30] MEDS: ATORVASTATIN CALCIUM 10 MG TABLET. PO SCH (10:28)
[2021-07-30] MEDS: LOSARTAN POTASSIUM 50 MG TABLET. PO SCH (10:30)
[2021-07-30 11:44] VITALS: BP 104/55
[2021-07-30 14:06] VITALS: BP 133/53
[2021-07-30 15:38] LABS: BILIRUBIN,URINE MODERATE (NEG); CLARITY,URINE CLEAR; COLOR,URINE YELLOW; NITRITE,URINE NEGATIVE (NEG); PROTEIN,URINE NEGATIVE (NEG-TRACE); UROBILINOGEN,URINE 0.2 mg/dL (0.2 mg/dL)
--- NOTE | 2021-07-30 15:40 | PDOC ---
[employer] PROGRESS NOTE Date of Service DOS: DATE: 07/30/21 TIME: 13:59 Chief Complaint Chief Complaint nausea and vomiting atrial fibrillation with RVR acute on chronic diastolic CHF htn lipids CHF, chronic diastolic, on lasix at baseline RUL lung mass, Augmentin had been started at [facility] last week, and they thought she needed 4 weeks abx History of DVT - on eliquis Diabetes Mellitus Anemia. Obesity - counseled on weight management. BMI 35 History of Present Illness History of Present Illness Lia Marte is a 76-year-old female with history of type 2 diabetes who presented to the hospital with shortness of breath. Lia has no significant history of tobacco use. She states she smoked very briefly from the age of 16- 18. Lia presented to the hospital with worsening shortness of breath over the past 2 to 3 weeks. She denies associated fever or chills or night sweats or unintentional weight loss. She received further evaluation with a CT chest which showed a right upper lobe/suprahilar mass measuring 7.6 x 7.0 x 7.2 cm with encasement of right hilar bronchovascular structures, narrowing and obliteration of the lumen of the right upper lobe bronchus. Encasement and greater than 90 percent narrowing of the right main pulmonary artery. Soft tissue invades the mediastinum and along up the right mainstem bronchus to within 1 cm of the debra. Partial encasement with greater than 75 percent main rowing of the SVC. No significant mediastinal lymphadenopathy was noted. No distant metastasis in the chest was noted. She received a CT-guided biopsy of this mass on 06/18/2021 which ultimately did not reveal malignancy. 06/19: Patient seen and examined. Discussed with Pulmonology - purulent material during CT guided biopsy yesterday. Pulm switched abx to Zosyn. Therapy recommends SNF for discharge. 06/20: Patient seen and examined. Still on 2 L nasal cannula oxygen saturations 94%. She had some sharp chest pain at 3 AM and again earlier that remitted with Tylenol. Pain is better right clavicle right subscapular area. This is the same pain she had prior to coming to the hospital. No nausea or vomiting. Still feeling very weak and she is requested to go to SNF discharge. 06/21: Pleural culture and AFB returned negative, Hb 8.3 stable, glucose stable. Chest pain improved. Shortness of breath improved. Discussed with patient family bedside pathology pending. She is leaning toward palliative care regardless of diagnosis would like to go to [facility] discharge when available in the next day. 07/29: HR better. still weak. needs PT and oT . long discussion with Dr. Bose, metastatic lung cancer lesion to leg, biopsy would not be advised of the leg, her pain could be improved with surgery by an Oncologic Orthopedist, needs to be NWB, is functionally bed bound 07/30: Seen bedside. Heart rate controlled. She is comfortable on O2. She is a long discussion with her daughter and notes she does not want any more invasive testing and wishes to go home with hospice. Vitals/I&O Vitals/I&O: Vital Signs Date Time Temp Pulse Resp B/P (MAP) Pulse Ox O2 Delivery O2 Flow Rate FiO2 07/30/21 11:44 98.0 89 18 104/55 (71) 98 Nasal Cannula 2.0 98.0 I & O 07/29/21 07/29/21 07/30/21 15:00 23:00 07:00 Intake Total 300 ml 0 ml 100 ml Output Total 300 ml 700 ml Balance 0 ml 0 ml -600 ml Physical Exam General: Alert, Cooperative, mild distress Heart: Regular rate Lungs: Other (b lat diminished ) Abdomen: Soft, No tenderness Extremities: No edema, Normal pulses Skin: No rashes Labs Labs: Laboratory Tests Test 07/29/21 16:12 07/29/21 20:39 07/30/21 04:20 07/30/21 08:38 Glucose (Fingerstick) 163 mg/dL (70-99) 160 mg/dL (70-99) 115 mg/dL (70-99) White Blood Count 7.2 x10^3/uL (4.0-11.0) Red Blood Count 3.19 x10^6/uL (3.50-5.40) Hemoglobin 7.9 g/dL (12.0-15.5) Hematocrit 24.8 % (36.0-47.0) Mean Corpuscular Volume 78 fL (79-100) Mean Corpuscular Hemoglobin 25 pg (25-35) Mean Corpuscular Hemoglobin Concent 32 g/dL (31-37) Red Cell Distribution Width 17.7 % (11.5-14.5) Platelet Count 265 x10^3/uL (140-400) Neutrophils (%) (Auto) 77 % (31-73) Lymphocytes (%) (Auto) 16 % (24-48) Monocytes (%) (Auto) 7 % (0-9) Eosinophils (%) (Auto) 1 % (0-3) Basophils (%) (Auto) 1 % (0-3) Neutrophils # (Auto) 5.6 x10^3/uL (1.8-7.7) Lymphocytes # (Auto) 1.1 x10^3/uL (1.0-4.8) Monocytes # (Auto) 0.5 x10^3/uL (0.0-1.1) Eosinophils # (Auto) 0.0 x10^3/uL (0.0-0.7) Basophils # (Auto) 0.0 x10^3/uL (0.0-0.2) Prothrombin Time 16.1 SEC (11.7-14.0) Prothromb Time International Ratio 1.3 (0.8-1.1) Sodium Level 136 mmol/L (136-145) Potassium Level 4.0 mmol/L (3.5-5.1) Chloride Level 98 mmol/L (98-107) Carbon Dioxide Level 27 mmol/L (21-32) Anion Gap 11 (6-14) Blood Urea Nitrogen 22 mg/dL (7-20) Creatinine 1.1 mg/dL (0.6-1.0) Estimated GFR (Cockcroft-Gault) 48.0 BUN/Creatinine Ratio 20 (6-20) Glucose Level 156 mg/dL (70-99) Calcium Level 8.0 mg/dL (8.5-10.1) Total Bilirubin 0.6 mg/dL (0.2-1.0) Aspartate Amino Transf (AST/SGOT) 24 U/L (15-37) Alanine Aminotransferase (ALT/SGPT) 19 U/L (14-59) Alkaline Phosphatase 73 U/L (46-116) Total Protein 6.1 g/dL (6.4-8.2) Albumin 1.8 g/dL (3.4-5.0) Albumin/Globulin Ratio 0.4 (1.0-1.7) Test 07/30/21 11:27 Glucose (Fingerstick) 187 mg/dL (70-99) Assessment and Plan Assessmemt and Plan Problems Medical Problems: (1) Abnormal CT of the abdomen Status: Acute (2) New onset a-fib Status: Acute Comment Review of Relevant I have reviewed the following items frank (where applicable) has been applied. Medications: Current Medications Medications (Trade) Dose Ordered Sig/Matt Route PRN Reason Start Time Stop Time Status Last Admin Dose Admin Quetiapine Fumarate (SEROquel) 25 mg 1X ONCE PO 07/29/21 19:45 07/29/21 19:46 DC 07/29/21 22:29 Justifications for Admission Other Justification BRI ALBERTS MD Jul 30, 2021 14:01
[2021-07-30 15:52] LABS: BACTERIA,URINE 0 /HPF (0-FEW); HYALINE CASTS, URINE MODERATE /HPF; RBC,URINE 0 /HPF (0-2); YEAST,URINE PRESENT /HPF
[2021-07-30 19:18] VITALS: BP 135/58
[2021-07-30] MEDS: INSULIN GLARGINE SYRINGE. SQ SCH (21:16)
[2021-07-30 22:12] VITALS: BP 175/82
[2021-07-30] MEDS: ACETAMINOPHEN 325 MG TABLET. PO PRN (23:04)
[2021-07-31 02:47] VITALS: BP 140/68
[2021-07-31] MEDS: LEVOTHYROXINE 125 MCG TABLET PO SCH (05:59)
[2021-07-31] MEDS: IPRATRPIUM/ALBUTEROL 0.5/2.5MG 3 ML NEBU. NEB SCH ×2 (06:45→11:11)
[2021-07-31 07:00] VITALS: BP 142/66
[2021-07-31] MEDS: INSULIN LISPRO 300 UNITS/3 ML VIAL. SQ SCH (07:30)
[2021-07-31] MEDS: POTASSIUM CHLORIDE 10 MEQ TABLET.ER. PO SCH (08:00)
[2021-07-31] MEDS: AMOXICILLIN/K CLAV 875/125MG TABLET. PO SCH (09:00)
[2021-07-31] MEDS: APIXABAN 5 MG TABLET. PO SCH (09:00)
[2021-07-31] MEDS: ISOSORBIDE MONONITRATE ER 30 MG TAB.ER.24H PO SCH (09:00)
[2021-07-31] MEDS: BUMETANIDE 1 MG TABLET. PO SCH (09:00)
[2021-07-31] MEDS: LOSARTAN POTASSIUM 50 MG TABLET. PO SCH (09:00)
[2021-07-31] MEDS: ATORVASTATIN CALCIUM 10 MG TABLET. PO SCH (09:00)
--- NOTE | 2021-07-31 09:04 | SNU/HH DC ---
DISCHARGE ORDERS DISCHARGE INFORMATION: DISCHARGE DATE: Jul 31, 2021 FINAL DIAGNOSIS Problems Medical Problems: (1) Abnormal CT of the abdomen Status: Acute (2) New onset a-fib Status: Acute CONDITION ON DISCHARGE: Stable CODE STATUS: Code Status: DNR/DNI HOSPICE: HOSPICE: Yes HOSPICE EVAL & TREAT: Yes POST DISCHARGE ORDERS: ACTIVITY ORDERS: No restrictions WEIGHT BEARING STATUS: As tolerated DIET AFTER DISCHARGE: ADA CHECKS AFTER DISCHARGE: CHECKS AFTER DISCHARGE: Check blood press - daily, Check blood sugar, ac/hs, Weigh Yourself Daily TREATMENT/EQUIPMENT ORDERS: ADAPTIVE EQUIPMENT NEEDED: None RESPIRATORY EQUIPMENT NEEDED: Oxygen, Nebulizer DISCHARGE MEDICATIONS: Home Meds Active Scripts Ipratropium/Albuterol Sulfate (DUONEB 0.5-3(2.5) MG/3 ML) 3 Ml Ampul.neb, 3 ML NEB RTQID for Bronchitis for 30 Days, #120 EACH Prov:BRI ALBERTS MD 06/21/21 Reported Medications Ondansetron (ONDANSETRON ODT) 4 Mg Tab.rapdis, 4 MG PO BID PRN for NAUSEA/VOMITING, TAB 07/26/21 Omeprazole (OMEPRAZOLE) 20 Mg Capsule.dr, 1 CAP PO DAILY for G, #30 CAP 5 Refills 07/26/21 Insulin Detemir (LEVEMIR) 100 Unit/1 Ml Vial, 15 UNIT SQ HS for sugars, EACH 07/26/21 Calcium Carbonate/Vitamin D3 (CALCIUM 500 + D TABLET) 1 Each Tablet, 1 TAB PO DAILY for replacement for 30 Days, #30 TAB 0 Refills 07/26/21 Bumetanide (BUMETANIDE) 1 Mg Tablet, 1 TAB PO BID for htn, #90 TAB 1 Refill 07/26/21 Acetaminophen (ACETAMINOPHEN) 325 Mg Tablet, 2 TAB PO Q4-6HRS PRN for pain or fever for 30 Days, #30 TAB 0 Refills 07/26/21 Levothyroxine Sodium (LEVOTHYROXINE SODIUM) 125 Mcg Tablet, 1 TAB PO DAILY for hypothyroid, #30 TAB 5 Refills 06/17/21 Isosorbide Mononitrate (ISOSORBIDE MONONITRATE ER) 30 Mg Tab.er.24h, 1 TAB PO DAILY for htn, #30 TAB 5 Refills 06/17/21 Insulin Lispro (HUMALOG) 100 Unit/1 Ml Insuln.pen, 15 UNIT SQ TIDBFRMEAL for insulin, SYR 10/21/18 Metformin Hcl (METFORMIN HCL) 1,000 Mg Tablet, 1 TAB PO BID, #60 TAB 5 Refills 08/13/14 Discontinued Reported Medications Amoxicillin/Potassium Clav (AUGMENTIN 875-125 TABLET) 1 Each Tablet, 1 TAB PO BID for Pneumonia for 10 Days, #20 TAB 0 Refills 07/26/21 Losartan Potassium (LOSARTAN POTASSIUM) 100 Mg Tablet, 100 MG PO DAILY for HYPERTENSION, TAB 06/20/21 Dulaglutide (Trulicity) 0.75 Mg/0.5 Ml Pen.injctr, 0.75 MG SQ WEEKLY for dm, EACH 06/17/21 Hydralazine Hcl (HYDRALAZINE HCL) 50 Mg Tablet, 1 TAB PO DAILY for htn, #90 TAB 5 Refills 06/17/21 Apixaban (ELIQUIS) 5 Mg Tablet, 5 MG PO BID for blood thinner , TAB 10/21/18 Atorvastatin Calcium (ATORVASTATIN CALCIUM) 10 Mg Tablet, 1 TAB PO DAILY for cholesterol, #30 TAB 5 Refills 10/21/18 Discontinued Scripts Potassium Chloride (KLOR-CON 10) 10 Meq Tablet.er, 10 MEQ PO DAILYWBKFT for Hypokalemia for 30 Days, #30 TAB.SR Prov:BRI ALBERTS MD 10/23/18 BRI ALBERTS MD Jul 31, 2021 09:04
--- NOTE | 2021-07-31 09:44 | PDOC ---
[employer] PROGRESS NOTE Date of Service DOS: DATE: 07/31/21 TIME: 09:43 Chief Complaint Chief Complaint nausea and vomiting atrial fibrillation with RVR acute on chronic diastolic CHF htn lipids CHF, chronic diastolic, on lasix at baseline RUL lung mass, Augmentin had been started at [facility] last week, and they thought she needed 4 weeks abx History of DVT - on eliquis Diabetes Mellitus Anemia. Obesity - counseled on weight management. BMI 35 Right hip lesion -appears to be small pathologic fracture. Due to a mass presumptively metastatic disease History of Present Illness History of Present Illness Lia Marte is a 76-year-old female with history of type 2 diabetes who presented to the hospital with shortness of breath. Lia has no significant history of tobacco use. She states she smoked very briefly from the age of 16- 18. Lia presented to the hospital with worsening shortness of breath over the past 2 to 3 weeks. She denies associated fever or chills or night sweats or unintentional weight loss. She received further evaluation with a CT chest which showed a right upper lobe/suprahilar mass measuring 7.6 x 7.0 x 7.2 cm with encasement of right hilar bronchovascular structures, narrowing and obliteration of the lumen of the right upper lobe bronchus. Encasement and greater than 90 percent narrowing of the right main pulmonary artery. Soft tissue invades the mediastinum and along up the right mainstem bronchus to within 1 cm of the debra. Partial encasement with greater than 75 percent narrowing of the SVC. No significant mediastinal lymphadenopathy was noted. No distant metastasis in the chest was noted. She received a CT-guided biopsy of this mass on 06/18/2021 which ultimately did not reveal malignancy. 06/19: Patient seen and examined. Discussed with Pulmonology - purulent material during CT guided biopsy yesterday. Pulm switched abx to Zosyn. Therapy recommen ds SNF for discharge. 06/20: Patient seen and examined. Still on 2 L nasal cannula oxygen saturations 94%. She had some sharp chest pain at 3 AM and again earlier that remitted with Tylenol. Pain is better right clavicle right subscapular area. This is the same pain she had prior to coming to the hospital. No nausea or vomiting. Still feeling very weak and she is requested to go to SNF discharge. 06/21: Pleural culture and AFB returned negative, Hb 8.3 stable, glucose stable. Chest pain improved. Shortness of breath improved. Discussed with patient family bedside pathology pending. She is leaning toward palliative care regar dless of diagnosis would like to go to [facility]ial on discharge when available in the next day. 07/29: HR better. still weak. needs PT and oT . long discussion with Dr. Bose, metastatic lung cancer lesion to leg, biopsy would not be advised of the leg, her pain could be improved with surgery by an Oncologic Orthopedist, needs to be NWB, is functionally bed bound 07/30: Seen bedside. Heart rate controlled. She is comfortable on O2. She is a long discussion with her daughter and notes she does not want any more invasive testing and wishes to go home with hospice. 07/31: Doing more weak today. After discussion with her daughter we have talked about pursuing a pathological diagnosis with biopsy or surgery and she is adamant about her plans to go home with hospice. She does states she feels there is to have a bowel movement but feels too weak to actually do it. Vitals/I&O Vitals/I&O: Vital Signs Date Time Temp Pulse Resp B/P (MAP) Pulse Ox O2 Delivery O2 Flow Rate FiO2 07/31/21 06:46 97 Nasal Cannula 2.0 07/31/21 02:47 98.2 82 19 140/68 (92) 98.2 I & O 07/30/21 07/30/21 07/31/21 15:00 23:00 07:00 Intake Total 480 ml 0 ml 200 ml Output Total 100 ml 200 ml Balance 480 ml -100 ml 0 ml Physical Exam General: Alert, Cooperative, mild distress Heart: Regular rate Lungs: Other (b lat diminished ) Abdomen: Soft, No tenderness Extremities: No edema, Normal pulses Skin: No rashes Labs Labs: Laboratory Tests Test 07/30/21 11:27 07/30/21 14:04 07/30/21 17:00 07/30/21 20:34 Glucose (Fingerstick) 187 mg/dL (70-99) 179 mg/dL (70-99) 231 mg/dL (70-99) Urine Collection Type Unknown Urine Color Yellow Urine Clarity Clear Urine pH 5.0 (<5.0-8.0) Urine Specific [place] 1.020 (1.000-1.030) Urine Protein Negative mg/dL (NEG-TRACE) Urine Glucose (UA) Negative mg/dL (NEG) Urine Ketones (Stick) Trace mg/dL (NEG) Urine Blood Negative (NEG) Urine Nitrite Negative (NEG) Urine Bilirubin Moderate (NEG) Urine Urobilinogen Dipstick 0.2 mg/dL (0.2 mg/dL) Urine Leukocyte Esterase Moderate (NEG) Urine RBC 0 /HPF (0-2) Urine WBC 11-20 /HPF (0-4) Urine Bacteria 0 /HPF (0-FEW) Urine Hyaline Casts Moderate /HPF Urine Mucus Mod /LPF Urine Yeast Present /HPF Test 07/31/21 08:49 Glucose (Fingerstick) 159 mg/dL (70-99) Assessment and Plan Assessmemt and Plan Problems Medical Problems: (1) Abnormal CT of the abdomen Status: Acute (2) New onset a-fib Status: Acute Comment Review of Relevant I have reviewed the following items frank (where applicable) has been applied. Justifications for Admission Other Justification BRI ALBERTS MD Jul 31, 2021 09:44
[2021-07-31] MEDS ORDERED: HYDR-2761 PO (09:45)
--- NOTE | 2021-07-31 10:27 | PDOC ---
PULMONARY PROGRESS NOTES DATE: 07/31/21 TIME: 10:21 Subjective Patient is lethargic. She denies any significant pain. Currently on nasal cannula Vitals Vital Signs Date Time Temp Pulse Resp B/P (MAP) Pulse Ox O2 Delivery O2 Flow Rate FiO2 07/31/21 07:00 97.4 77 18 142/66 (91) 98 Nasal Cannula 2.0 97.4 ROS: No Nausea General: No acute distress, Lethargic HEENT: Other (nc at ) Lungs: Other (b lat diminished ) Cardiovascular: S1, S2 Abdomen: Soft Extremities: Other Skin: Warm Labs Laboratory Tests Test 07/29/21 11:17 07/29/21 16:12 07/29/21 20:39 07/30/21 04:20 Glucose (Fingerstick) 166 mg/dL (70-99) 163 mg/dL (70-99) 160 mg/dL (70-99) White Blood Count 7.2 x10^3/uL (4.0-11.0) Red Blood Count 3.19 x10^6/uL (3.50-5.40) Hemoglobin 7.9 g/dL (12.0-15.5) Hematocrit 24.8 % (36.0-47.0) Mean Corpuscular Volume 78 fL (79-100) Mean Corpuscular Hemoglobin 25 pg (25-35) Mean Corpuscular Hemoglobin Concent 32 g/dL (31-37) Red Cell Distribution Width 17.7 % (11.5-14.5) Platelet Count 265 x10^3/uL (140-400) Neutrophils (%) (Auto) 77 % (31-73) Lymphocytes (%) (Auto) 16 % (24-48) Monocytes (%) (Auto) 7 % (0-9) Eosinophils (%) (Auto) 1 % (0-3) Basophils (%) (Auto) 1 % (0-3) Neutrophils # (Auto) 5.6 x10^3/uL (1.8-7.7) Lymphocytes # (Auto) 1.1 x10^3/uL (1.0-4.8) Monocytes # (Auto) 0.5 x10^3/uL (0.0-1.1) Eosinophils # (Auto) 0.0 x10^3/uL (0.0-0.7) Basophils # (Auto) 0.0 x10^3/uL (0.0-0.2) Prothrombin Time 16.1 SEC (11.7-14.0) Prothromb Time International Ratio 1.3 (0.8-1.1) Sodium Level 136 mmol/L (136-145) Potassium Level 4.0 mmol/L (3.5-5.1) Chloride Level 98 mmol/L (98-107) Carbon Dioxide Level 27 mmol/L (21-32) Anion Gap 11 (6-14) Blood Urea Nitrogen 22 mg/dL (7-20) Creatinine 1.1 mg/dL (0.6-1.0) Estimated GFR (Cockcroft-Gault) 48.0 BUN/Creatinine Ratio 20 (6-20) Glucose Level 156 mg/dL (70-99) Calcium Level 8.0 mg/dL (8.5-10.1) Total Bilirubin 0.6 mg/dL (0.2-1.0) Aspartate Amino Transf (AST/SGOT) 24 U/L (15-37) Alanine Aminotransferase (ALT/SGPT) 19 U/L (14-59) Alkaline Phosphatase 73 U/L (46-116) Total Protein 6.1 g/dL (6.4-8.2) Albumin 1.8 g/dL (3.4-5.0) Albumin/Globulin Ratio 0.4 (1.0-1.7) Test 07/30/21 08:38 07/30/21 11:27 07/30/21 14:04 07/30/21 17:00 Glucose (Fingerstick) 115 mg/dL (70-99) 187 mg/dL (70-99) 179 mg/dL (70-99) Urine Collection Type Unknown Urine Color Yellow Urine Clarity Clear Urine pH 5.0 (<5.0-8.0) Urine Specific [place] 1.020 (1.000-1.030) Urine Protein Negative mg/dL (NEG-TRACE) Urine Glucose (UA) Negative mg/dL (NEG) Urine Ketones (Stick) Trace mg/dL (NEG) Urine Blood Negative (NEG) Urine Nitrite Negative (NEG) Urine Bilirubin Moderate (NEG) Urine Urobilinogen Dipstick 0.2 mg/dL (0.2 mg/dL) Urine Leukocyte Esterase Moderate (NEG) Urine RBC 0 /HPF (0-2) Urine WBC 11-20 /HPF (0-4) Urine Bacteria 0 /HPF (0-FEW) Urine Hyaline Casts Moderate /HPF Urine Mucus Mod /LPF Urine Yeast Present /HPF Test 07/30/21 20:34 07/31/21 08:49 Glucose (Fingerstick) 231 mg/dL (70-99) 159 mg/dL (70-99) Laboratory Tests Test 07/30/21 11:27 07/30/21 14:04 07/30/21 17:00 07/30/21 20:34 Glucose (Fingerstick) 187 mg/dL (70-99) 179 mg/dL (70-99) 231 mg/dL (70-99) Urine Collection Type Unknown Urine Color Yellow Urine Clarity Clear Urine pH 5.0 (<5.0-8.0) Urine Specific [place] 1.020 (1.000-1.030) Urine Protein Negative mg/dL (NEG-TRACE) Urine Glucose (UA) Negative mg/dL (NEG) Urine Ketones (Stick) Trace mg/dL (NEG) Urine Blood Negative (NEG) Urine Nitrite Negative (NEG) Urine Bilirubin Moderate (NEG) Urine Urobilinogen Dipstick 0.2 mg/dL (0.2 mg/dL) Urine Leukocyte Esterase Moderate (NEG) Urine RBC 0 /HPF (0-2) Urine WBC 11-20 /HPF (0-4) Urine Bacteria 0 /HPF (0-FEW) Urine Hyaline Casts Moderate /HPF Urine Mucus Mod /LPF Urine Yeast Present /HPF Test 07/31/21 08:49 Glucose (Fingerstick) 159 mg/dL (70-99) Medications Active Scripts Medications Dose Route/Sig Max Daily Dose Days Date Category Ondansetron Odt (Ondansetron) 4 Mg Tab.rapdis 4 Mg PO BID PRN 07/26/21 Reported Omeprazole 20 Mg Capsule.dr 1 Cap PO DAILY 07/26/21 Reported Levemir (Insulin Detemir) 100 Unit/1 Ml Vial 15 Unit SQ HS 07/26/21 Reported Calcium 500 + D Tablet (Calcium Carbonate/Vitamin D3) 1 Each Tablet 1 Tab PO DAILY 30 07/26/21 Reported Bumetanide 1 Mg Tablet 1 Tab PO BID 07/26/21 Reported Augmentin 875-125 Tablet (Amoxicillin/Potassium Clav) 1 Each Tablet 1 Tab PO BID 10 07/26/21 Reported Acetaminophen 325 Mg Tablet 2 Tab PO Q4-6HRS PRN 30 07/26/21 Reported Duoneb 0.5-3(2.5) Mg/3 Ml (Albuterol/Ipratropium) 3 Ml Ampul.neb 3 Ml NEB RTQID 30 06/21/21 Rx Losartan Potassium 100 Mg Tablet 100 Mg PO DAILY 06/20/21 Reported Trulicity (Dulaglutide) 0.75 Mg/0.5 Ml Pen.injctr 0.75 Mg SQ WEEKLY 06/17/21 Reported Levothyroxine Sodium 125 Mcg Tablet 1 Tab PO DAILY 06/17/21 Reported Isosorbide Mononitrate Er (Isosorbide Mononitrate) 30 Mg Tab.er.24h 1 Tab PO DAILY 06/17/21 Reported Hydralazine Hcl 50 Mg Tablet 1 Tab PO DAILY 06/17/21 Reported Klor-Con 10 (Potassium Chloride) 10 Meq Tablet.er 10 Meq PO DAILYWBKFT 30 10/23/18 Rx Humalog (Insulin Lispro) 100 Unit/1 Ml Insuln.pen 15 Unit SQ TIDBFRMEAL 10/21/18 Reported Eliquis (Apixaban) 5 Mg Tablet 5 Mg PO BID 10/21/18 Reported Atorvastatin Calcium 10 Mg Tablet 1 Tab PO DAILY 10/21/18 Reported Metformin Hcl 1,000 Mg Tablet 1 Tab PO BID 08/13/14 Reported Impression . IMPRESSION: 1. Abnormal CT chest with persistent and increased masslike consolidation in the right upper lobe. She had narrowing of the right main pulmonary artery. She has now a right lower lobe pleural effusion. Last month, she had a CT-guided aspiration biopsy, right upper lobe and liquid material was obtained and it was thought that it was probably a lung abscess. She was supposed to have a followup CT later this month. Malignancy was negative. She now has persistent collapse of the right upper lobe and also has a large lytic lesion in the right femur. Likely suspecting metastatic disease with primary lung cancer. 3. No significant tobacco history. 4. Abnormal CT chest as discussed above. 5. History of deep venous thrombosis and atrial fibrillation. She has been on Eliquis, which is on hold. 6. Atrial fibrillation with rapid ventricular response on admission, now improved. Plan . RECOMMENDATIONS: 07/31 1. 02 titration to keep sat 92% 2. At this point, she is asymptomatic and we will monitor her pleural effusion for now. If malignancy is confirmed then she may need a thoracentesis and eventually a PleurX catheter. 3. Follow Cardiology recommendation regarding atrial fibrillation. 4. Eliquis is on hold. for biopsy on friday 5. Interventional Radiology recommendation 6. DNR Patient to discharge home with hospice. Discussed with RN Will sign off at this time, please contact us if you have further needs. ALEKSANDRA KERN MD Jul 31, 2021 10:27
--- NOTE | 2021-07-31 10:48 | PDOC ---
JOSÉ LUIS COLUGNA [employer] 07/31/21 1048: CARDIO Progress Notes Date and Time Date of Service 07/31/21 Time of Evaluation 1045 Subjective Subjective: No Chest Pain, No shortness of breath, No Palpitations, Other (weak) Vitals Vitals Vital Signs Date Time Temp Pulse Resp B/P (MAP) Pulse Ox O2 Delivery O2 Flow Rate FiO2 07/31/21 07:00 97.4 77 18 142/66 (91) 98 Nasal Cannula 2.0 97.4 Weight Weight [ ] Input and Output Intake and Output Intake and Output 07/31/21 07:00 Intake Total 680 ml Output Total 300 ml Balance 380 ml Intake Oral 680 ml Output Urine Total 300 ml # Bowel Movements 1 Laboratory Labs Laboratory Tests Test 07/30/21 11:27 07/30/21 14:04 07/30/21 17:00 07/30/21 20:34 Glucose (Fingerstick) 187 mg/dL (70-99) 179 mg/dL (70-99) 231 mg/dL (70-99) Urine Collection Type Unknown Urine Color Yellow Urine Clarity Clear Urine pH 5.0 (<5.0-8.0) Urine Specific [place] 1.020 (1.000-1.030) Urine Protein Negative mg/dL (NEG-TRACE) Urine Glucose (UA) Negative mg/dL (NEG) Urine Ketones (Stick) Trace mg/dL (NEG) Urine Blood Negative (NEG) Urine Nitrite Negative (NEG) Urine Bilirubin Moderate (NEG) Urine Urobilinogen Dipstick 0.2 mg/dL (0.2 mg/dL) Urine Leukocyte Esterase Moderate (NEG) Urine RBC 0 /HPF (0-2) Urine WBC 11-20 /HPF (0-4) Urine Bacteria 0 /HPF (0-FEW) Urine Hyaline Casts Moderate /HPF Urine Mucus Mod /LPF Urine Yeast Present /HPF Test 07/31/21 08:49 Glucose (Fingerstick) 159 mg/dL (70-99) Microbiology Micro Microbiology 07/26/21 Blood Culture - Preliminary, Resulted NO GROWTH AFTER 4 DAYS 07/26/21 Urine Culture - Final, Complete Physical Exam HEENT: Neck Supple W Full Motion Chest: Symmetric LUNGS: Other (on NC) Heart: RRR (SR) Abdomen: Other (obese) Neurology: alert, other (lethargic ) Assessment Assessment 1. AFIB RVR: Maintaining SR. Cardizem for rate control 2. HTN urgency: now controlled 3. DM2: per PCP 4. HLP 5. Morbid obesity 6. Hx of DVT 7. Acute on chronic diastolic CHF: now compensated 8. RUL lesion: increased size to 8.9 cm. suspected metastatic lung CA 9. Large lytic lesion at the proximal right femur with possible pathological fracture, right adrenal myelolipoma per CT. ? Metastasis 10. Right pleural effusion: per pulmonary 11. Very mild trop elevation: most probably type 2 demand mediated. CP free Plans to discharge home with Hospice. Will sign off. Justicifation of Admission Dx: Justifications for Admission: Justification of Admission Dx: Yes RUSTY WALLS MD 07/31/21 1709: JOSÉ LUIS COLUNGA APRN Jul 31, 2021 10:48 RUSTY WALLS MD Jul 31, 2021 17:09
--- NOTE | 2021-07-31 10:50 | PDOC ---
JOSÉ LUIS COLUNGA [employer] 07/30/21 1355: CARDIO Progress Notes Date and Time Date of Service 07/30/21 Time of Evaluation 1140 Subjective Subjective: No Chest Pain, No shortness of breath, No Palpitations Vitals Vitals Vital Signs Date Time Temp Pulse Resp B/P (MAP) Pulse Ox O2 Delivery O2 Flow Rate FiO2 07/30/21 11:44 98.0 89 18 104/55 (71) 98 Nasal Cannula 2.0 98.0 Weight Weight [ ] Input and Output Intake and Output Intake and Output 07/30/21 06:59 Intake Total 400 ml Output Total 1000 ml Balance -600 ml Intake Oral 400 ml Output Urine Total 1000 ml Laboratory Labs Laboratory Tests Test 07/29/21 16:12 07/29/21 20:39 07/30/21 04:20 07/30/21 08:38 Glucose (Fingerstick) 163 mg/dL (70-99) 160 mg/dL (70-99) 115 mg/dL (70-99) White Blood Count 7.2 x10^3/uL (4.0-11.0) Red Blood Count 3.19 x10^6/uL (3.50-5.40) Hemoglobin 7.9 g/dL (12.0-15.5) Hematocrit 24.8 % (36.0-47.0) Mean Corpuscular Volume 78 fL (79-100) Mean Corpuscular Hemoglobin 25 pg (25-35) Mean Corpuscular Hemoglobin Concent 32 g/dL (31-37) Red Cell Distribution Width 17.7 % (11.5-14.5) Platelet Count 265 x10^3/uL (140-400) Neutrophils (%) (Auto) 77 % (31-73) Lymphocytes (%) (Auto) 16 % (24-48) Monocytes (%) (Auto) 7 % (0-9) Eosinophils (%) (Auto) 1 % (0-3) Basophils (%) (Auto) 1 % (0-3) Neutrophils # (Auto) 5.6 x10^3/uL (1.8-7.7) Lymphocytes # (Auto) 1.1 x10^3/uL (1.0-4.8) Monocytes # (Auto) 0.5 x10^3/uL (0.0-1.1) Eosinophils # (Auto) 0.0 x10^3/uL (0.0-0.7) Basophils # (Auto) 0.0 x10^3/uL (0.0-0.2) Prothrombin Time 16.1 SEC (11.7-14.0) Prothromb Time International Ratio 1.3 (0.8-1.1) Sodium Level 136 mmol/L (136-145) Potassium Level 4.0 mmol/L (3.5-5.1) Chloride Level 98 mmol/L (98-107) Carbon Dioxide Level 27 mmol/L (21-32) Anion Gap 11 (6-14) Blood Urea Nitrogen 22 mg/dL (7-20) Creatinine 1.1 mg/dL (0.6-1.0) Estimated GFR (Cockcroft-Gault) 48.0 BUN/Creatinine Ratio 20 (6-20) Glucose Level 156 mg/dL (70-99) Calcium Level 8.0 mg/dL (8.5-10.1) Total Bilirubin 0.6 mg/dL (0.2-1.0) Aspartate Amino Transf (AST/SGOT) 24 U/L (15-37) Alanine Aminotransferase (ALT/SGPT) 19 U/L (14-59) Alkaline Phosphatase 73 U/L (46-116) Total Protein 6.1 g/dL (6.4-8.2) Albumin 1.8 g/dL (3.4-5.0) Albumin/Globulin Ratio 0.4 (1.0-1.7) Test 07/30/21 11:27 Glucose (Fingerstick) 187 mg/dL (70-99) Microbiology Micro Microbiology 07/26/21 Blood Culture - Preliminary, Resulted NO GROWTH AFTER 3 DAYS 07/26/21 Urine Culture - Final, Complete Physical Exam HEENT: Neck Supple W Full Motion Chest: Symmetric LUNGS: Other (diminished) Heart: S1S2, RRR (SR) Abdomen: Soft N/T, Other (obese, anasarca) Extremities: No Calf Tenderness Neurology: alert, oriented, follow commands Assessment Assessment 1. AFIB RVR: Maintaining SR. 2. HTN urgency: now controlled 3. DM2: per PCP 4. HLP 5. Morbid obesity 6. Hx of DVT 7. Acute on chronic diastolic CHF: now compensated 8. RUL lesion: increased size to 8.9 cm. suspected metastatic lung CA 9. Large lytic lesion at the proximal right femur with possible pathological fracture, right adrenal myelolipoma per CT. ? Metastasis 10. Right pleural effusion: per pulmonary 11. Very mild trop elevation: most probably type 2 demand mediated. CP free Recommendations Continue Cardizem for rate control Oral Bumex therapy Resume Eliquis for hx of DVT and stroke prevention if no intervention planned Supportive care from a CV standpoint Justicifation of Admission Dx: Justifications for Admission: Justification of Admission Dx: Yes RUSTY WALLS MD 07/31/21 1129: CARDIO Progress Notes Plan Plan Late entry for 07/30/2021 Patient seen and examined. Discussed with primary service. The patient wishes to consider hospice therapy. Supportive care from a cardiac standpoint. We will follow along peripherally JOSÉ LUIS COLUNGA APRN Jul 30, 2021 13:55 RUSTY WALLS MD Jul 31, 2021 11:29
--- NOTE | 2021-07-31 12:15 | NUR ---
DISCHARGED PATIENT TO HOME WITH HOSPICE. PIV AND HEART MONITOR REMOVED. PATIENT OFF UNIT PER [facility].
== END 2021-07-31 12:18 | disposition hospice, home (50) | DRG 308 ==
LOC: ER 10:38 → 6 SOUTH 12:44
PROVIDERS: ADMIT Internal Medicine; ATTEND Internal Medicine
DX: I48.91 Unspecified atrial fibrillation (principal); I50.33 Acute on chronic diastolic (congestive) heart failure; E43 Unspecified severe protein-calorie malnutrition; I11.0 Hypertensive heart disease with heart failure; E03.9 Hypothyroidism, unspecified; E11.9 Type 2 diabetes mellitus without complications; E66.01 Morbid (severe) obesity due to excess calories; Z86.16 Personal history of COVID-19; E78.5 Hyperlipidemia, unspecified; I16.0 Hypertensive urgency; J44.9 Chronic obstructive pulmonary disease, unspecified; Z68.35 Body mass index [BMI] 35.0-35.9, adult; Z82.49 Family history of ischemic heart disease and other diseases of the circulatory system; Z86.718 Personal history of other venous thrombosis and embolism; Z87.01 Personal history of pneumonia (recurrent); Z87.891 Personal history of nicotine dependence; Z90.710 Acquired absence of both cervix and uterus; M19.90 Unspecified osteoarthritis, unspecified site; Z90.49 Acquired absence of other specified parts of digestive tract; Z88.2 Allergy status to sulfonamides; Z66 Do not resuscitate; Z79.899 Other long term (current) drug therapy; D17.79 Benign lipomatous neoplasm of other sites
CPT/HCPCS: 96365; 96375; 96376; 99285; C8929; 36415; 70450; 71045; 71250; 72170; 73552; 74176; 80053; 81001; 82962; 83605; 83690; 83735; 83880; 84443; 84484; 85025; 85610; 87040; 87086; 93005; 94640; 94760; J1815; J2405; J3475; J3490; Q9956; 97530-GO; G0378